=== PATIENT | male | born 1995 | race Caucasian/White ===

== ENCOUNTER 2020-06-11 11:55 | Emergency (ER) | payer MEDICAID, SELFPAY ==
[2020-06-11 12:17] VITALS: BP 130/71; PULSE 74; RESP 16; TEMP 36.9; O2SAT 98; BMI 29.5
--- NOTE | 2020-06-11 12:25 | PC.NURSE ---
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
--- NOTE | 2020-06-11 13:33 | ED_ITS ---
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 Reports he is up-to-date on his tetanus. Denies any other injuries complaints or concerns at this time. Related Data Allergies Allergy/AdvReac Type Severity Reaction Status Date / Time ampicillin [AMPICILLIN] Allergy Unknown SWELLING, Unverified 05/09/20 17:10 anaphylaxis Review of Systems Review of Systems: Constitutional : No Fever, No Chills, Cardiovascular : No Chest Pain, No SOB Respiratory : No Dyspnea Gastrointestinal : No abdominal pain Musculoskeletal : No Joint Swelling Skin : positive skin laceration, No Foreign bodies, No rash, No surrounding erythema Neuro : No Weakness, No Numbness/tingling Psych : No SI/HI/thoughts of self injury Yes all other systems are reviewed and are negative [facility] Past Medical History Attestation statement: The following information was validated with the patient. Medical History Crohn's disease Surgical History History of ankle surgery Hx of tonsillectomy Social History Social History Smoking Status: Never smoker Use of substances other than those prescribed or required for medical reasons: No Advance Directives: No Advance Directives Information Provided: No Physical Exam Vital Signs: Vital Signs: Vital Signs Temp Pulse Resp BP Pulse Ox 06/11/20 12:17 98.5 F 74 16 130/71 98 Body Mass Index 29.5 vital signs have been reviewed as normal and appeared to be correct. Blood pressure normal. Heart rate normal. Respiration rate normal. Temperature normal. Oxygen saturation normal. Appearance: Alert. Oriented X3. No acute distress. Head: Normal external exam. Normocephalic. Atraumatic. No Pardo signs noted. No raccoon eyes noted Eyes: PERRLA. EOMI. Conjunctiva and sclera normal. Eyelids normal. ENT: EAC normal. TM's Normal. Pharynx normal. Uvula midline. Moist mucous membranes. No trismus noted. No drooling noted. No muffled voice noted. Neck: Normal inspection. Neck supple. FROM. No adenopathy. Thyroid Normal. No meningeal signs. No neck mass noted. CVS: Normal heart rate and rhythm. Heart sound normal. No murmurs noted. Pulses normal throughout. Respiratory: No respiratory distress. Painless inspiration. Breath sounds n ormal. No wheezes/rales/rhonchi noted. Chest nontender. No accessory muscle usage noted or decreased air movement noted. Abdomen: Soft and nontender. Bowel sounds normal in all 4 quadrants. No diste ntion noted. No organomegaly noted. No visible injury noted. Back: No CVA tenderness. Full range of motion noted. Skin: Skin warm and dry. Normal skin color. Normal skin turgor. No rashes/lesions noted. Superficial 1 cm lack to left hand dorsal aspect. Bleeding controlled. No foreign bodies noted. Extremities: No lower extremity edema. Extremities exhibit normal range of motion. Extremities nontender. Normal Tendon exam to all fingers. . Neuro: Oriented X 3. No motor deficit. No sensory deficit. Reflexes normal. Procedures Laceration Laceration 1: Site: hand Side (If applicable): left Size (cm): 1 Description: linear Depth: simple, single layer Local Anesthetic: lidocaine 1% Amount of anesthesia used (mL): 3 Pre-repair: wound explored, irrigated extensively and deep structures intact Skin layer closed with: nylon Size (cm): 4-0 Number of sutures: 3 Technique: simple, interrupted Discharge Plan Discharge Clinical Impression: Laceration Patient Disposition: Home, Self-Care Instructions: Laceration (ED) Referrals: Shawnee Ochoa PA [Emergency Midlevel Provider] - 10 days (for suture removal ) Stand Alone Forms: Work/School Release Print Language: Swedish
[2020-06-11] MEDS: Lidocaine HCl 1 % MPF 5 ML VIAL SUBCUT (13:35)
== END 2020-06-11 13:42 | disposition home or self-care (01) ==
PROVIDERS: Emergency Provider Emergency Medicine
DX: S61.412A Laceration without foreign body of left hand, initial encounter (principal); W45.8XXA Other foreign body or object entering through skin, initial encounter; Y93.89 Activity, other specified; Y92.9 Unspecified place or not applicable; Y99.0 Civilian activity done for income or pay
CPT/HCPCS: 12001; 99284

== ENCOUNTER 2020-06-21 14:27 | Outpatient (REF) | payer MEDICAID, SELFPAY ==
[2020-06-21 16:19] LABS: MANUAL DIFF FLAG NO
[2020-06-21 16:24] LABS: Basophils Absolute Auto 0.1 X10*3/uL (0.0-0.2); Basophils Percent Auto 0.9 % (0-2); Eosinophils Absolute Auto 0.2 X10*3/uL (0.0-0.4); Eosinophils Percent Auto 2.2 % (0-4); Hematocrit 34.7 % (42-52); Hemoglobin 10.1 g/dl (14.0-18.0); Imm Gran Abs Auto 0.04 X10*3/uL (0.00-0.03); Imm Gran Pct Auto 0.4 % (0.0-0.4); Lymphocytes Absolute Auto 1.9 X10*3/uL (1.2-4.9); Mean Corpuscular HGB Conc 29.1 g/dl (31.0-36.0); Mean Corpuscular Hemoglobin 20.7 pg (27.0-33.0); Mean Corpuscular Volume 71.1 fL (80-98); Mean Platelet Volume 8.7 fL (9.4-12.4); Monocytes Absolute Auto 0.8 X10*3/uL (0.1-1.2); Monocytes Percent Auto 7.5 % (2-11); Platelet Count 627 X10*3/uL (160-400); Red Blood Count 4.88 X10*6/uL (4.60-5.80); Red Cell Distribution Width 16.5 % (11.0-16.0); White Blood Count 11.1 X10*3/uL (4.8-10.8)
[2020-06-21 16:47] LABS: C Reactive Protein 7.34 mg/dL (< or = 0.50)
[2020-06-21 17:11] LABS: Ferritin 23 ng/mL (20-250)
[2020-06-21 17:21] LABS: Erythrocyte Sedimentation Rate 67 MM/HR (0-15)
[2020-06-21 19:36] LABS: Alanine Aminotransferase 9 U/L (0-40); Albumin Level 3.7 g/dL (3.5-5.0); Alkaline Phosphatase 55 U/L (39-117); Anion Gap 15 (12-20); Aspartate Amino Transferase 12 U/L (5-37); Bilirubin Total 0.4 mg/dL (0.0-1.0); Blood Urea Nitrogen 12 mg/dL (9-16); Calcium 8.3 mg/dL (8.4-10.2); Carbon Dioxide 28 mmol/L (22-29); Chloride 100 mmol/L (96-108); Estimated Glomerular Filt Rate > 60; Glucose Random 87 mg/dL (60-115); Sodium 138 mmol/L (135-145); Total Protein 8.2 g/dL (6.5-8.0)
[2020-06-29 07:47] LABS: Adalimumab Drug Level 1.6 mcg/mL; Anti-Adalimumab Antibody <10 AU (<10)
== END 2020-06-21 14:28 | disposition home or self-care (01) ==
LOC: HO.LAB 14:27
PROVIDERS: PCP Family Medicine; Referring Provider Family Medicine; Visit Provider Internal Medicine Gastroenterology
DX: K50.811 Crohn's disease of both small and large intestine with rectal bleeding (principal); K60.3 Anal fistula; Z79.899 Other long term (current) drug therapy
CPT/HCPCS: 36415; 80053; 80145; 82728; 83520; 85025; 85652; 86140; 99212

== ENCOUNTER 2020-08-09 08:31 | Outpatient (REF) | payer MEDICAID, SELFPAY ==
[2020-08-09 09:06] LABS: MANUAL DIFF FLAG NO
[2020-08-09 09:13] LABS: Basophils Absolute Auto 0.1 X10*3/uL (0.0-0.2); Basophils Percent Auto 0.9 % (0-2); Eosinophils Absolute Auto 0.4 X10*3/uL (0.0-0.4); Eosinophils Percent Auto 3.5 % (0-4); Hemoglobin 11.5 g/dl (14.0-18.0); Imm Gran Abs Auto 0.04 X10*3/uL (0.00-0.03); Imm Gran Pct Auto 0.4 % (0.0-0.4); Lymphocytes Percent Auto 20.1 % (20-40); Mean Corpuscular HGB Conc 30.3 g/dl (31.0-36.0); Mean Corpuscular Hemoglobin 21.7 pg (27.0-33.0); Mean Corpuscular Volume 71.8 fL (80-98); Mean Platelet Volume 8.5 fL (9.4-12.4); Monocytes Absolute Auto 0.9 X10*3/uL (0.1-1.2); Monocytes Percent Auto 9.1 % (2-11); Neutrophils Absolute Auto 6.6 X10*3/uL (2.0-8.3); Platelet Count 573 X10*3/uL (160-400); Red Blood Count 5.29 X10*6/uL (4.60-5.80); Red Cell Distribution Width 19.1 % (11.0-16.0); White Blood Count 9.9 X10*3/uL (4.8-10.8)
[2020-08-09 09:41] LABS: Alanine Aminotransferase 8 U/L (0-40); Albumin Level 3.5 g/dL (3.5-5.0); Alkaline Phosphatase 56 U/L (39-117); Aspartate Amino Transferase 11 U/L (5-37); Bilirubin Direct 0.2 mg/dL (0.0-0.5); Bilirubin Total 0.3 mg/dL (0.0-1.0); C Reactive Protein 5.51 mg/dL (< or = 0.50); Estimated Glomerular Filt Rate > 60; Total Protein 7.9 g/dL (6.5-8.0)
[2020-08-09 10:03] LABS: Ferritin 33 ng/mL (20-250)
== END 2020-08-09 08:32 | disposition home or self-care (01) ==
LOC: HO.LAB 08:31
PROVIDERS: Visit Provider Internal Medicine Gastroenterology
DX: K50.811 Crohn's disease of both small and large intestine with rectal bleeding (principal)
CPT/HCPCS: 36415; 80076; 82565; 82728; 85025; 86140

== ENCOUNTER → 2020-11-07 14:04 | Outpatient (BNVA) | payer MEDICAID, SELFPAY | PROVIDERS: Visit Provider Internal Medicine Gastroenterology ==

== ENCOUNTER → 2021-02-06 13:25 | Outpatient (BNVA) | payer MEDICAID, SELFPAY | PROVIDERS: Visit Provider Internal Medicine Gastroenterology ==

== ENCOUNTER 2021-03-22 14:25 | Emergency (ER) | payer MEDICAID, SELFPAY ==
[2021-03-22 14:27] VITALS: BP 131/84; PULSE 65; RESP 17; O2SAT 99; BMI 28.6
--- NOTE | 2021-03-22 14:49 | ED.EYEPROB ---
HPI - Eye Problem General Chief complaint: Eye Problems Stated complaint: eye problems Time Seen by Provider: 03/22/21 14:49 History of Present Illness HPI Narrative: Patient with history of Crohn's taking adalimubab complains of both eyes being scratchy with a sandpaper feeling, red and mild blurriness of vision but no loss of vision no significant eye pain no pain with light no discharge from eye for the past 2 weeks, he went to an urgent care and was given some drops for allergy but they have not helped Related Data Previous Rx's Medication Instructions Recorded azathioprine 50 mg tablet 50 mg PO DAILY 30 Days #30 tab 06/21/20 cholecalciferol (vitamin D3) 125 125 mcg PO DAILY 30 Days #30 cap 06/21/20 mcg (5,000 unit) capsule ferrous sulfate 325 mg (65 mg 325 mg PO BID 30 Days #60 tab 11/07/20 iron) tablet [id number] 3.5 1 drp OPHTHALMIC (EYE) Q6H #5 ml 03/22/21 mg/mL-10,000 unit/mL-0.1% eye drops (Maxitrol) adalimumab 40 mg/0.4 mL 40 mg SUBCUT QWEEK #4 cap 03/31/21 subcutaneous pen kit (Humira(CF) Pen) Allergies Allergy/AdvReac Type Severity Reaction Status Date / Time ampicillin [AMPICILLIN] Allergy Mild SWELLING, Verified 03/22/21 14:27 anaphylaxis Review of Systems Review of Systems: Positive for bilateral eye scratchiness and redness Negatives are no fever no chills no headache no vision loss no photophobia no discharge from the eye no foreign body sensation no headache no neck pain no sore throat no difficulty breathing no skin rash Yes all other systems are reviewed and are negative PMFSH Past Medical History Source: nursing notes reviewed Medical History (Updated 03/23/21 @ 00:01 by Stephanie Johns) Crohn's disease Hepatitis A immune Nonimmune to hepatitis B virus Surgical History History of ankle surgery (~02/2017) Hx of colonoscopy (10/27/19) Hx of esophagogastroduodenoscopy (10/27/19) Hx of tonsillectomy Social History Social History Household Members: Family Alcohol intake: current Alcohol intake frequency: does not drink Advance Directives: No Advance Directives Information Provided: No Current occupation: Works at [employer] Physical Exam Vital Signs: Vital Signs: Last Vital Signs Pulse 65 03/22/21 14:27 Resp 17 03/22/21 14:27 BP 131/84 03/22/21 14:27 Pulse Ox 99 03/22/21 14:27 Body Mass Index 28.6 General appearance no acute distress eye exam visual acuity is 2025 bilaterally There is conjunctival redness in both eyes, pupils equal round reactive to light extraocular motions are intact, there is no discharge there is no photophobia Fluorescein stain revealed punctate dye uptake Pharynx was clear Neck was supple Respiratory no distress Skin no rashes Course Course Course Narrative: Case was discussed with eye doctor adalgisa 0 believe this is likely keratitis secondary to his Crohn's He advised treatment with Maxitrol be initiated and he said he would see the patient early next week Patient is discharged with clear understanding of the need for follow-up and instructions on how to uses drops Discharge Plan Discharge Clinical Impression: Keratitis Patient Disposition: Home, Self-Care Additional Instructions: Your condition is likely an inflammatory condition from her underlying Crohn's disease called keratitis We spoke with eye doctor Adalgisa by text who advised treatment with steroid drops that also have some antibiotic drop mixed in with them He said call the office Wednesday to be seen Wednesday or Wednesday Make sure when you speak with the medical secretary receptionist that she knows that the physician client services assistant from the emergency room discussed this case with Dr. Diana and he said this patient needs to be seen quickly Return to the ER any worse condition or any concerns or if you are unable to get a close follow-up with Dr. Diana Prescriptions: New neomycin-polymyxin B-dexameth [Maxitrol] 3.5mg/mL-10,000 unit/mL-0.1 % drops,suspension 1 drp ophthalmic (eye) Q6H Qty: 5 RF: 0 No Action Humira(CF) Pen 40 mg/0.4 mL pen injector kit 40 mg subcut QWEEK Qty: 4 RF: 2 azathioprine 50 mg tablet 50 mg PO DAILY 30 Days Qty: 30 RF: 2 cholecalciferol (vitamin D3) 125 mcg (5,000 unit) capsule 125 mcg PO DAILY 30 Days Qty: 30 RF: 3 ferrous sulfate 325 mg (65 mg iron) tablet 325 mg PO BID 30 Days Qty: 60 RF: 1 Referrals: Melo Diana [Physician] - 2 days (Keratitis, discussed with Dr. Diana by phone and patient told to call Wednesday for rapid appointment Wednesday or Wednesday) Stand Alone Forms: Work/School Release Interventions: ED Discharge Assessment Last Done: 03/22/21 16:56 Discharge Date/Time: 03/22/21 17:14
[2021-03-22] MEDS: Fluorescein Sodium STRIP 1 STRIP EYE-BOTH (14:59)
[2021-03-22] MEDS: Tetracaine HCl/PF 0.5% Oph Sol 4 ML DROPS 3 DROP EYE-BOTH (14:59)
--- NOTE | 2021-03-22 16:55 | PC.NURSE ---
YANDY SPENCER SPOKE WITH DR GARCIA AND PT WILL GO HOME WITH STERIOD DROPS AND F/U WITH HIM IN OFFICE.
== END 2021-03-22 17:14 | disposition home or self-care (01) ==
PROVIDERS: Emergency Provider Emergency Medicine
DX: H16.9 Unspecified keratitis (principal); K50.811 Crohn's disease of both small and large intestine with rectal bleeding
CPT/HCPCS: 99283; 99284

== ENCOUNTER 2021-04-14 13:52 | Outpatient (REF) | payer MEDICAID, SELFPAY | END 2021-04-14 13:53 | disposition home or self-care (01) | LOC: HO.LAB 13:52 | PROVIDERS: Visit Provider Internal Medicine | DX: Z20.822 Contact with and (suspected) exposure to COVID-19 (principal) | CPT/HCPCS: C9803; U0003; U0005 ==

== ENCOUNTER → 2021-05-08 13:43 | Outpatient (BNVA) | payer MEDICAID, SELFPAY | PROVIDERS: Visit Provider Internal Medicine Gastroenterology ==

== ENCOUNTER 2021-09-11 11:47 | Outpatient (REF) | payer MEDICAID, SELFPAY ==
[2021-09-11 13:38] LABS: MANUAL DIFF FLAG NO
[2021-09-11 14:12] LABS: Basophils Absolute Auto 0.1 X10*3/uL (0.0-0.2); Basophils Percent Auto 0.9 % (0-2); Eosinophils Absolute Auto 0.2 X10*3/uL (0.0-0.4); Eosinophils Percent Auto 2.2 % (0-4); Hematocrit 39.5 % (42.0-52.0); Hemoglobin 11.9 g/dl (14.0-18.0); Imm Gran Abs Auto 0.02 X10*3/uL (0.00-0.03); Imm Gran Pct Auto 0.3 % (0.0-0.4); Lymphocytes Absolute Auto 1.9 X10*3/uL (1.2-4.9); Lymphocytes Percent Auto 24.8 % (20-40); Mean Corpuscular HGB Conc 30.1 g/dl (31.0-36.0); Mean Corpuscular Hemoglobin 21.7 pg (27.0-33.0); Mean Corpuscular Volume 71.9 fL (80.0-98.0); Mean Platelet Volume 8.7 fL (9.4-12.4); Monocytes Percent Auto 13.1 % (2-11); Neutrophils Absolute Auto 4.5 x10*3/uL (2.0-8.3); Neutrophils Percent Auto 58.7 % (45-73); Platelet Count 578 X10*3/uL (160-400); Red Blood Count 5.49 X10*6/uL (4.60-5.80); Red Cell Distribution Width 18.6 % (11.0-16.0); White Blood Count 7.6 X10*3/uL (4.8-10.8)
[2021-09-11 14:39] LABS: Alanine Aminotransferase 14 U/L (0-40); Albumin Level 3.8 g/dL (3.5-5.0); Alkaline Phosphatase 61 U/L (39-117); Anion Gap 11 (12-20); Aspartate Amino Transferase 14 U/L (5-37); Bilirubin Total 0.3 mg/dL (0.0-1.0); Blood Urea Nitrogen 12 mg/dL (9-16); C Reactive Protein 5.42 mg/dL (< or = 0.50); Calcium 9.5 mg/dL (8.4-10.2); Carbon Dioxide 28 mmol/L (22-29); Chloride 104 mmol/L (96-108); Estimated Glomerular Filt Rate > 60; Glucose Random 97 mg/dL (60-115); Potassium 5.2 mmol/L (3.3-5.1); Sodium 138 mmol/L (135-145); Total Protein 8.6 g/dL (6.5-8.0)
[2021-09-11 14:55] LABS: Erythrocyte Sedimentation Rate 53 MM/HR (0-15)
[2021-09-11 15:01] LABS: Vitamin D 25-OH Total 11.9 ng/mL (>30)
[2021-09-11 15:07] LABS: Vitamin B12 286 pg/mL (200-900)
[2021-09-13 19:17] LABS: TS Negative Control Passed; TS Panel A 0; TS Panel B 0; TS Positive Control Passed; TSpotTB Negative (Negative)
[2021-09-15 07:59] LABS: HBS Num1 0.36 mIU/mL (0-7.99); HBc Num1 0.12 S/CO (0.00-0.79); HBsAGNum1 0.26 S/CO (0.00-0.99); Hepatitis B Core Antibody Nonreactive (Nonreactive); Hepatitis B Surface Antigen Negative (Negative); ~Hepatitis B Surface Antibody NONREACTIVE (Nonreactive)
== END 2021-09-11 11:48 | disposition home or self-care (01) ==
LOC: HO.LAB 11:47
PROVIDERS: Visit Provider Internal Medicine Gastroenterology
DX: K50.811 Crohn's disease of both small and large intestine with rectal bleeding (principal); K60.3 Anal fistula
CPT/HCPCS: 36415; 80053; 82306; 82607; 85025; 85652; 86140; 86481; 86704; 86706; 87340; 99212

== ENCOUNTER → 2022-01-08 12:29 | Outpatient (BNVA) | payer MEDICAID, SELFPAY | PROVIDERS: Visit Provider Internal Medicine Gastroenterology | DX: K50.811 Crohn's disease of both small and large intestine with rectal bleeding (principal); K60.3 Anal fistula | CPT/HCPCS: 99212 ==

== ENCOUNTER 2022-01-14 10:16 | Emergency (ER) | payer MEDICAID, SELFPAY ==
--- NOTE | ~2022-01-14 | XR_ITS ---
EXAMINATION: XR CHEST CLINICAL INFORMATION: Cough COMPARISON: Previous chest x-ray January 2019 TECHNIQUE: 2 views of the chest were obtained. FINDINGS: The cardiac and mediastinal contours are stable. There is question of a small infiltrate at the left lung base. The lungs are otherwise clear. There is no pleural effusion or pneumothorax. Bony structures are unremarkable. XR/XR chest 2V IMPRESSION: Question small infiltrate at the left lung base.
[2022-01-14 11:01] VITALS: BP 131/84; PULSE 77; RESP 18; TEMP 36.6; O2SAT 97; BMI 31.7
[2022-01-14 12:04] LABS: COVID-19 Test Negative (Negative)
[2022-01-14] MEDS: Albuterol Sulfate (0.083%) 2.5 MG/3 ML VIAL.NEB 5 MG INHALE (13:08)
[2022-01-14 13:11] VITALS: PULSE 62; RESP 16; O2SAT 99
[2022-01-14] MEDS: predniSONE 20 MG TABLET 60 MG PO (13:28)
--- NOTE | 2022-01-14 13:55 | ED_ITS ---
HPI - URI/Sore Throat General Chief Complaint: Upper Respiratory Symptoms Stated Complaint: diff breathing Time Seen by Provider: 01/14/22 12:54 Source: patient Mode of arrival: ambulatory Limitations: no limitations History of Present Illness HPI Narrative: 26-year-old male currently on Humira for Crohn's disease presenting to the ED with complaints of chills, fatigue, malaise, nasal congestion/rhinorrhea and in termittent episodes of epistaxis with a productive cough with green-colored sputum for the past week worse today. He denies any fevers, dizziness, headaches, neck pain/stiffness, chest pain, dyspnea exertion, orthopnea, palpitations, paresthesias, nausea/vomiting/diarrhea constipation, abdominal pain, rashes, recent travel or sick contacts or any other symptoms complaints or concerns at this time. MD elicited complaint: cough, rhinorrhea and nasal congestion Onset (ago): week(s) (1) Consistency: constant and progressively worsening Severity: moderate Description of mucous: clear, watery, yellow and green Able to tolerate fluids by mouth: Yes Exacerbating factors: swallowing and deep breaths Relieving factors: nothing Associated symptoms: chills, myalgias, rhinorrhea, nasal congestion, cough, shortness of breath, epistaxis and other (And wheezing) Treatments prior to arrival: none Related Data Previous Rx's Medication Instructions Recorded azathioprine 50 mg tablet 50 mg PO DAILY 30 Days #30 tab 06/21/20 cholecalciferol (vitamin D3) 125 125 mcg PO DAILY 30 Days #30 cap 06/21/20 mcg (5,000 unit) capsule adalimumab 40 mg/0.4 mL 40 mg (0.4 mL) SUBCUT QWEEK #4 cap 11/04/21 subcutaneous pen kit (Humira(CF) Pen) bisacodyl 5 mg tablet,delayed 5 mg PO BEDTIME 1 Days #1 tab 01/08/22 release (Dulcolax (bisacodyl)) polyethylene glycol 3350 17 17 g PO DAILY 1 Days #238 g 01/08/22 gram/dose oral powder (Miralax) albuterol sulfate 90 mcg/actuation 1 inh INHALATION QID PRN #8.5 g 01/14/22 aerosol inhaler codeine 10 mg-guaifenesin 100 mg/5 5 ml PO Q6H PRN #120 ml 01/14/22 mL oral liquid (Guaifenesin AC) doxycycline monohydrate 100 mg 100 mg PO BID 10 Days #20 cap 01/14/22 capsule prednisone 20 mg tablet 40 mg PO DAILY 5 Days #10 tab 01/14/22 Allergies Allergy/AdvReac Type Severity Reaction Status Date / Time ampicillin [AMPICILLIN] Allergy Mild SWELLING, Verified 01/14/22 11:00 anaphylaxis Review of Systems Review of Systems: Constitutional : + chills/fatigue/malaise, No Weight loss, No Fever, No Night Sweats ENT/Mouth : + nasal congestion/rhinorrhea, No Hearing loss, No Ear Pain, No Sinus Pain, No Hoarseness, No sore throat, No Swallowing Difficulty Eyes: No Eye Pain, No Swelling, No Redness, No Foreign Body, No Discharge, No Vision Changes Cardiovascular : No Chest Pain, + SOB, No Dyspnea on Exertion, No Orthopnea, No Edema, No Palpitations Respiratory : + Cough, + Sputum, + Wheezing, No Smoke Exposure, + Dyspnea Gastrointestinal : No Nausea, No Vomiting, No Diarrhea, No Constipation, No abdominal Pain, No Hematochezia, No Melena Genitourinary : no irregular bleeding, No Dysuria, No Urinary Frequency, No Hematuria, No Urinary Incontinence, No Urgency, No Flank Pain, No Urinary Flow Changes, No Hesitancy Musculoskeletal : No joint pain, + Myalgias, No Joint Swelling Skin : No Skin Lesions, No rash Neuro : No Weakness, No Numbness, No Paresthesias, No Loss of Consciousness, No Dizziness, No Headache Psych : No Anxiety/Panic, No Depression, No SI/HI/AH/VH, No Social Issues, Heme/Lymph: No Bruising, No Bleeding,No Lymphadenopathy Endocrine : No Polyuria, No Polydipsia, No Temperature Intolerance Yes all other systems are reviewed and are negative [facility] Past Medical History Attestation statement: The following information was validated with the patient. Medical History Crohn's disease Hepatitis A immune Nonimmune to hepatitis B virus Surgical History History of ankle surgery (~02/2017) Hx of colonoscopy (10/27/19) Hx of esophagogastroduodenoscopy (10/27/19) Hx of tonsillectomy Social History Social History Household Members: Family Alcohol intake: current Alcohol intake frequency: does not drink Advance Directives: No Advance Directives Information Provided: No Current occupation: Works at [employer] Physical Exam Vital Signs: Vital Signs: Last Vital Signs Temp 97.8 F 01/14/22 11:01 Pulse 62 01/14/22 13:11 Resp 16 01/14/22 13:11 BP 131/84 01/14/22 11:01 Pulse Ox 97 01/14/22 11:01 BMI result Body Mass Index 31.7 vital signs have been reviewed as normal and appeared to be correct. Blood pressure normal. Heart rate normal. Respiration rate normal. Temperature normal. Oxygen saturation normal. Appearance: Alert. Oriented X3. No acute distress. Head: Normal external exam. Normocephalic. Atraumatic. Eyes: PERRLA. EOMI. Conjunctiva and sclera normal. Eyelids normal. ENT: EAC normal. TM's Normal. No septal hematoma noted. No hemotympanum noted. Pharynx normal. Uvula midline. Moist mucous membranes. No lesions/ulcerations or masses noted on the tongue. Normal voice. No trismus noted. No drooling noted. No muffled voice noted. Neck: Normal inspection. Neck supple. FROM. No adenopathy. Thyroid Normal. No meningeal signs. No neck mass noted. CVS: Normal heart rate and rhythm. Heart sound normal. Pulses normal throughout. No murmurs/rales/gallops. Respiratory: In mild acute respiratory distress with decreased breath sounds and inspiratory and expiratory wheezing throughout and rhonchi noted. No rales noted. Chest is nontender. No crepitus is noted. No signs of trauma noted. No accessory muscle usage noted. No tracheal tugging noted. Abdomen: Soft and nontender. Bowel sounds normal in all 4 quadrants. No distention noted. No organomegaly noted. No visible injury noted. Back: Full range of motion noted. Skin: Skin warm and dry. Normal skin color. Normal skin turgor. No rashes/lesions/lacerations noted. Extremities: No lower extremity edema. No calf tenderness is noted. Extremities exhibit normal range of motion and nontender. Neuro: Oriented X 3. No motor deficit. No sensory deficit. Reflexes normal. Normal steady gait. No focal neuro deficits noted. CN's II-XII intact bilaterally? Vascular: + radial pulses/+ 2 distal pedal pulses/+2 dorsalis pedis b/l. Normal cap refill. No cyanosis noted to upper extremity nails and lower extremity toes nails. Course Course Course Narrative: Patient negative for COVID. Patient appears to have a small infiltrate at the left lung base. Otherwise no other acute processes. Patient received a breathing treatment and reports he feels better. Will DC home with antibiotics and symptomatic treatment for pneumonia instructions return if any new or worsening symptoms follow up with primary care provider. Patient understands agrees with this plan. MDM - URI/Sore Throat Medical Records Attestation: I reviewed the patient's medical records. Lab Data Attestation: I reviewed the patient's lab results. Labs: Lab Results 01/14/22 Range/Units 11:14 COVID-19 (ISABELLA) Negative (Negative) COVID-19 Clin Com See Note Imaging Data Chest x-ray: Attestation: I personally reviewed and interpreted this imaging study as follows: Radiologist's impression: FINDINGS: The cardiac and mediastinal contours are stable. There is question of a small infiltrate at the left lung base. The lungs are otherwise clear. There is no pleural effusion or pneumothorax. Bony structures are unremarkable. XR/XR chest 2V IMPRESSION: Question small infiltrate at the left lung base. Critical Care Time Critical Care Time Critical Care Time: Yes Total Critical Care Time: 60 Attestation: I personally attest to this time spent taking care of the patient Discharge Plan Discharge Clinical Impression: Pneumonia, Acute bronchospasm Patient Disposition: Home, Self-Care Instructions: Bronchospasm (ED), Pneumonia (ED) Additional Instructions: Avoid the sun or use sunscreen you can get a sun burn from the antibiotics he will be on for 10 days Prescriptions: New prednisone 20 mg tablet 40 mg PO DAILY 5 Days Qty: 10 0RF doxycycline monohydrate 100 mg capsule 100 mg PO BID 10 Days Qty: 20 0RF codeine-guaifenesin [Guaifenesin AC] 10-100 mg/5 mL liquid 5 ml PO Q6H PRN (Reason: cold symptoms) Qty: 120 0RF albuterol sulfate 90 mcg/actuation HFA aerosol inhaler 1 inh inhalation QID PRN (Reason: shortness of breath or wheezing) Qty: 8.5 0RF No Action Humira(CF) Pen 40 mg/0.4 mL pen injector kit 40 mg subcut QWEEK Qty: 4 3RF azathioprine 50 mg tablet 50 mg PO DAILY 30 Days Qty: 30 2RF cholecalciferol (vitamin D3) 125 mcg (5,000 unit) capsule 125 mcg PO DAILY 30 Days Qty: 30 3RF Rx Instructions: Take once daily bisacodyl [Dulcolax (bisacodyl)] 5 mg tablet,delayed release (DR/EC) 5 mg PO BEDTIME 1 Days Qty: 1 0RF Rx Instructions: Take 2 tablets at noon 1 day before colonoscopy polyethylene glycol 3350 [Miralax] 17 gram/dose powder 17 g PO DAILY 1 Days Qty: 238 0RF Rx Instructions: Mix Miralax with 64 oz(8 cups) of Crystal light. Take 2 tablets of Dulcolax qt 12 pm. Wait to have your 1st bowel movement, then begin drinking Miralax. Drink a glass of Miralax every 10-15 minutes until you are finished. You will drink at least another 4 cups of clear liquid of your choice over the next 2 hours. Please drink as many clear liquids as possible You may have clear liquids up to four hours before your procedure Referrals: [facility] [Primary Care Provider] - 2 days Stand Alone Forms: Work/School Release
== END 2022-01-14 14:36 | disposition home or self-care (01) ==
PROVIDERS: Emergency Provider Emergency Medicine Emergency Medical Services
DX: J18.9 Pneumonia, unspecified organism (principal); J98.01 Acute bronchospasm; R05.9 Cough, unspecified; R06.02 Shortness of breath; M79.10 Myalgia, unspecified site; Z20.822 Contact with and (suspected) exposure to COVID-19; Z79.899 Other long term (current) drug therapy
CPT/HCPCS: 71046; 87635; 94640; 94644; 99284

== ENCOUNTER 2022-09-17 13:31 | Outpatient (REF) | payer MEDICAID, SELFPAY ==
[2022-09-17 14:42] LABS: MANUAL DIFF FLAG NO
[2022-09-17 15:06] LABS: Basophils Absolute Auto 0.1 X10*3/uL (0.0-0.2); Eosinophils Absolute Auto 0.3 X10*3/uL (0.0-0.4); Eosinophils Percent Auto 2.9 % (0-4); Hemoglobin 11.8 g/dl (14.0-18.0); Imm Gran Abs Auto 0.03 X10*3/uL (0.00-0.03); Imm Gran Pct Auto 0.3 % (0.0-0.4); Lymphocytes Absolute Auto 2.1 X10*3/uL (1.2-4.9); Lymphocytes Percent Auto 20.8 % (20-40); Mean Corpuscular HGB Conc 30.3 g/dl (31.0-36.0); Mean Corpuscular Hemoglobin 21.6 pg (27.0-33.0); Mean Corpuscular Volume 71.3 fL (80.0-98.0); Mean Platelet Volume 8.4 fL (9.4-12.4); Monocytes Absolute Auto 0.9 X10*3/uL (0.1-1.2); Monocytes Percent Auto 8.5 % (2-11); Neutrophils Absolute Auto 6.7 x10*3/uL (2.0-8.3); Neutrophils Percent Auto 66.5 % (45-73); Platelet Count 556 X10*3/uL (160-400); Red Blood Count 5.47 X10*6/uL (4.60-5.80); Red Cell Distribution Width 15.9 % (11.0-16.0)
[2022-09-17 15:43] LABS: Alanine Aminotransferase 10 U/L (0-40); Albumin Level 3.7 g/dL (3.5-5.0); Alkaline Phosphatase 58 U/L (39-117); Anion Gap 14 (12-20); Aspartate Amino Transferase 11 U/L (5-37); Bilirubin Total 0.3 mg/dL (0.0-1.0); Blood Urea Nitrogen 14 mg/dL (9-16); Calcium 9.4 mg/dL (8.4-10.2); Carbon Dioxide 27 mmol/L (22-29); Chloride 102 mmol/L (96-108); Estimated Glomerular Filt Rate > 60; Glucose Random 90 mg/dL (60-115); Potassium 4.8 mmol/L (3.3-5.1); Sodium 138 mmol/L (135-145); Total Protein 8.4 g/dL (6.5-8.0)
[2022-09-19 15:13] LABS: TS Negative Control Passed; TS Panel A 0; TS Panel B 1; TS Positive Control Passed; TSpotTB Negative (Negative)
[2022-09-25 20:39] LABS: Adalimumab Drug Level 3.9 mcg/mL; Anti-Adalimumab Antibody <10 AU (<10)
== END 2022-09-17 13:32 | disposition home or self-care (01) ==
LOC: HO.LAB 13:31
PROVIDERS: Visit Provider Internal Medicine Gastroenterology
DX: K50.811 Crohn's disease of both small and large intestine with rectal bleeding (principal); K60.3 Anal fistula; Z11.1 Encounter for screening for respiratory tuberculosis; Z79.899 Other long term (current) drug therapy
CPT/HCPCS: 36415; 80053; 80145; 82306; 83520; 85025; 86140; 86481; 99212

== ENCOUNTER 2022-10-27 09:03 | Outpatient (REF) | payer MEDICAID, SELFPAY ==
[2022-11-02 22:43] LABS: Calprotectin, Fecal 3190 mcg/g
== END 2022-10-27 09:04 | disposition home or self-care (01) ==
LOC: HO.LNP 09:03
PROVIDERS: Visit Provider Internal Medicine Gastroenterology
DX: K50.811 Crohn's disease of both small and large intestine with rectal bleeding (principal)
CPT/HCPCS: 83993

== ENCOUNTER 2022-10-29 08:59 | Day surgery (SDC) | payer MEDICAID, SELFPAY ==
[2022-10-26 11:46] VITALS: BMI 32.0
--- NOTE | 2022-10-28 12:55 | P.CONAN_ITS ---
Documented by User: Niecy Torres NP 10/28/22 12:57 HPI - Anesthesia Eval Consult details Narrative: 27yo M for Upper Endoscopy and Colonoscopy FOR[facility] Active Problems Active Problems: All Active Problems (Updated 01/15/22 @ 00:01 by Stephanie Johns) Perianal fistula (Acute) Crohn's disease of both small and large intestine with rectal bleeding (Acute) Past Medical History Medical History Crohn's disease Hepatitis A immune Nonimmune to hepatitis B virus Surgical History Surgical History History of ankle surgery (~02/2017) Hx of colonoscopy (10/27/19) Hx of esophagogastroduodenoscopy (10/27/19) Hx of tonsillectomy Social History Social History Household Members: Family Alcohol intake: current Alcohol intake frequency: does not drink Patient Tobacco Use Status: Never used Tobacco Are you DNR?: No Advance Directives: No Advance Directives Information Provided: Yes Current occupation: Works at [employer] Allergies Allergy/AdvReac Type Severity Reaction Status Date / Time ampicillin [AMPICILLIN] Allergy Mild SWELLING, Verified 09/17/22 13:44 anaphylaxis Exam Exam Date and Time: October 28, 2022 1255 Height,Weight and Vital Signs: Height 5 ft 9 in Weight 98.43 kg Pertinent Lab Results Pertinent Lab Results: Laboratory Tests 09/17/22 09/17/22 14:41 14:41 WBC 10.0 Hgb 11.8 L Hct 39.0 L Plt Count 556 H Sodium 138 Potassium 4.8 Chloride 102 Carbon Dioxide 27 BUN 14 Creatinine 0.83 Documented by User: Noemy Keating MD 10/29/22 10:28 PMFSH Past Medical History Medical History Crohn's disease Hepatitis A immune Nonimmune to hepatitis B virus Surgical History Surgical History History of ankle surgery (~02/2017) Hx of colonoscopy (10/27/19) Hx of esophagogastroduodenoscopy (10/27/19) Hx of tonsillectomy History of Problems with Anesthesia: No Social History Social History Household Members: Family Alcohol intake: current Alcohol intake frequency: does not drink Patient Tobacco Use Status: Never used Tobacco Are you DNR?: No Advance Directives: No Advance Directives Information Provided: Yes Current occupation: Works at [employer] Allergies Allergy/AdvReac Type Severity Reaction Status Date / Time ampicillin [AMPICILLIN] Allergy Mild SWELLING, Verified 09/17/22 13:44 anaphylaxis Exam Airway Mallampati Class: II (Full ovalle) TM Dist: >3cm Neck ROM: Full Loose/Missing/Broken Teeth: No Heart: RRR Lungs: CTA Assessment and Plan Assessment Anesthesia Assessment: Anesthesia Plan Discussed and Chart Reviewed Final Anesthetic Review History of Problems with Anesthesia: No NPO: Yes ASA Class: II Final Preanesthetic Review: Meds/Allgs Chart Reviewed, Consent Obtained/Reviewed and Anes Risks/Benef Reviewed Patient Risk: Low Procedure Risk: Intermediate Anesthetic Plan Anesthetic Plan: MAC: Disposition: Standard PACU
--- NOTE | 2022-10-29 08:59 | MHC.SHP ---
Pre-Procedural Eval Section A Date of Service: 10/29/22 The patient is an INPATIENT: No The History & Physical has been completed within 30 days and I have reviewed it.: No Section B Chief Complaint: screening, Crohn's disease Details of Present Illness: Colon cancer screening Relevant Family History (Specify if Yes): No Relevant Social History: None Present Medications: see Short Stay Collaborative assessment Medical History: Significant History (Crohn's disease Hepatitis A immune Nonimmune to hepatitis B virus) History of Previous Operations: Relevant previous surgery/procedure and date(s) (History of ankle surgery (~02/2017) Hx of colonoscopy (10/27/19) Hx of esophagogastroduodenoscopy (10/27/19) Hx of tonsillectomy) Allergies: Allergies Allergy/AdvReac Type Severity Reaction Status Date / Time ampicillin [AMPICILLIN] Allergy Mild SWELLING, Verified 09/17/22 13:44 anaphylaxis Review of Systems Sugical H&P ROS: Negative: Constitution, Cardiovascular and Respiratory and Yes, Specify: Gastrointestinal (crohn's disease) Exam Surgical H&P Exam: Normal: Heart, Normal: Lungs, Normal: Extremities and Normal: Abdomen Plan Diagnosis/Plan: Unchanged I have reviewed the history and physical and performed a pertinent physical examination on my patient. No changes have occurred unless specified. Time Spent With Patient Time: Total time managing care of this patient today ____ minutes.
[2022-10-29 09:20] VITALS: BMI 32.5
[2022-10-29 09:25] VITALS: BP 128/82; PULSE 85; RESP 18; TEMP 36.4; O2SAT 97
[2022-10-29] MEDS: Lactated Ringers 1,000 ML 100 ML IVCONT (09:30)
--- NOTE | 2022-10-29 09:59 | P.BOP_ITS ---
Brief Operative Note Date of Service: 10/29/22 Pre-op diagnosis: Colon cancer screening, follow-up Crohn's disease Post-op diagnosis: other (Gastritis, duodenal ulcers, Crohn's disease, diverticulosis) Procedure: FLEXIBLE TRANSORAL UPPER GASTROINTESTINAL ENDOSCOPY WITH BIOPSIES AND COLONOSCOPY TILL CECUM WITH BIOPSIES Surgeon: Fuentes Burton MD Anesthesia: MAC Was an Biodiesel Division Manager used for this Procedure?: Yes Biodiesel Division Manager: Phoebe Tapia Estimated blood loss (mL): 2 Pathology: other (A: small bowel biopsy, to rule out chrons disease B: gastric antrum h: pylori To rule out chrons disease C:Cecum D: ilicoccygeal valve ) Condition: stable Disposition: PACU
--- NOTE | 2022-10-29 09:59 | W.PM.OPN ---
Operative Note Operative Note Date of Service: 10/29/22 Narrative: FLEXIBLE TRANSORAL UPPER GASTROINTESTINAL ENDOSCOPY WITH BIOPSIES AND COLONOSCOPY TILL CECUM WITH BIOPSIES UPPER ENDOSCOPY Consent: Indications for the procedure and potential complications of bleeding, perforation, reaction to medications and missed diagnosis were discussed with the patient and informed consent was obtained. Instrument: Olympus GIF H 190 mid size upper endoscope Monitoring: Vital signs and clinical assessment, continuous EKG monitoring, Pulse oximetry, Carbon Dioxide monitoring and blood pressure monitoring were done throughout the procedure. Procedure: The patient was placed in the left lateral decubitis position and pre-procedure medications were administered and a bite block was placed. The endoscope was inserted into the mouth and advanced under direct vision to the third part of duodenum. A careful inspection was made as the upper endoscope was withdrawn including a retroflexed examination of the proximal stomach; Findings and interventions are described below. Findings: Larynx: Normal Esophagus: GE junction at 40 cms. No esophagitis or Ballesteros's. Stomach: Mild gastric erythema. Biopsies were obtained. Grade 2 flap valve on retroflexed examination of the cardia. Duodenum: Normal bulb. Three 4-5 mm chronic appearing healing ulcers in the descending duodenum - biopsied Intervention: Biopsies as noted above COLONOSCOPY PROCEDURE NOTE Consent: Indications for the procedure and potential complications of bleeding, perforation, reaction to medications and missed diagnosis were discussed with the patient and informed consent was obtained. Instrument: Olympus PCF H 190 L variable stiffness pediatric colonoscope Monitoring: Vital signs and clinical assessment, intermittent blood pressure monitoring, continuous EKG monitoring, Pulse oximetry and Carbon Dioxide monitoring were done throughout the procedure. Colon withdrawl time was 20 minutes. Procedure: The patient was placed in the left lateral decubitis position and pre-procedure medications were administered. After a digital rectal examination of the ano-rectum, the video colonoscope was inserted into the rectum and advanced through the colon to the cecum. The colonoscope was slowly withdrawn in a retrograde panoramic fashion and the colon mucosa was carefully examined including a retroflexed view of the rectum. Findings and interventions are described below. Procedure Difficulty: : Without difficulty Findings: Terminal Ileum: Could not be intubated due to narrowing and ulcerations at the opening of ICV Cecum: Patchy erythema with friability Ulcers with narrowing in the area of ICV Ascending Colon: Friable mucosa with multiple ulcers Transverse Colon: Patchy erythema with friable appearing mucosa without ulcers Descending Colon: Patchy erythema with friable appearing mucosa without ulcers Sigmoid Colon: Patchy erythema with friable appearing mucosa without ulcers Moderate diverticulosis Rectum: Patchy erythema with friable appearing mucosa without ulcers Ano-rectum: Ulcerations in the anal canal without obvious fistua Colon preparation: Good after some irrigation Impression and Post Procedure Diagnosis: Endoscopy Findings: STOMACH: Gastritis DUODENUM: Three 4-5 mm chronic appearing healing ulcers in the descending duodenum - biopsied Colonoscopy Findings: No polyps were detected Active right sided colitis due to Crohn's disease (Cecum, ICV and AC). Patchy erythema with friable appearing mucosa without ulcers in the transverse and left colon. Active etienne-anal Crohn's disease Moderate diverticulosis seen in the sigmoid colon Plan: I will contact pt with biopsy results and addition of immunomodulators - Azathioprine or MTX Patient has an appointment on 01/07/23 in the [facility] with Fuentes Burton M.D. Repeat Colonoscopy interval based on path results - in 1- 2 years for FU of Crohn's disease Above findings were reviewed with the patient.
[2022-10-29 11:03] VITALS: BP 103/51; PULSE 77; RESP 24; TEMP 36.3; O2SAT 97
[2022-10-29 11:18] VITALS: BP 116/63; PULSE 91; RESP 18; TEMP 36.9; O2SAT 96
== END 2022-10-29 11:51 | disposition home or self-care (01) ==
PROVIDERS: Visit Provider Internal Medicine Gastroenterology
PROC: (CPT 45380; principal; 2022-10-29 10:10)
DX: Z12.11 Encounter for screening for malignant neoplasm of colon (principal); K50.811 Crohn's disease of both small and large intestine with rectal bleeding; K60.3 Anal fistula; K57.30 Diverticulosis of large intestine without perforation or abscess without bleeding; K52.89 Other specified noninfective gastroenteritis and colitis; K29.50 Unspecified chronic gastritis without bleeding; K26.9 Duodenal ulcer, unspecified as acute or chronic, without hemorrhage or perforation; K75.4 Autoimmune hepatitis; B19.10 Unspecified viral hepatitis B without hepatic coma; Z79.899 Other long term (current) drug therapy; Z88.1 Allergy status to other antibiotic agents
CPT/HCPCS: 45380; 43239; 88305; 88342; J2250

== ENCOUNTER → 2023-01-14 07:59 | Outpatient (BNVA) | payer MEDICAID, SELFPAY | PROVIDERS: Visit Provider Internal Medicine Gastroenterology | DX: K50.811 Crohn's disease of both small and large intestine with rectal bleeding (principal); K60.3 Anal fistula | CPT/HCPCS: 99212 ==

== ENCOUNTER 2023-03-03 14:37 | Emergency (ER) | payer OTHER, SELFPAY ==
--- NOTE | 2023-03-03 14:58 | ED.GENADULT ---
HPI - General Adult General Chief complaint: Skin/Abscess/Foreign Body Stated complaint: Referred by doctor; left buttock abscess Time Seen by Provider: 03/03/23 15:23 Related Data Previous Rx's Medication Instructions Recorded albuterol sulfate 90 mcg/actuation 1 inh inhalation QID PRN shortness 01/14/22 aerosol inhaler of breath or wheezing #8.5 grams codeine 10 mg-guaifenesin 100 mg/5 5 ml PO Q6H PRN cold symptoms #120 01/14/22 mL oral liquid (Guaifenesin AC) mL doxycycline monohydrate 100 mg 100 mg PO BID 10 days #20 caps 01/14/22 capsule mupirocin 2 % topical ointment 1 appl topical TID #22 grams 01/14/22 cholecalciferol (vitamin D3) 250 250 mcg PO 2XW 90 days #26 caps 11/05/22 mcg (10,000 unit) capsule azathioprine 50 mg tablet 50 mg PO DAILY 90 days #90 tabs 11/06/22 adalimumab 40 mg/0.4 mL 40 mg (0.4 mL) subcut QWEEK 4 02/17/23 subcutaneous pen kit (Humira(CF) weeks #1.6 ea Pen) clindamycin HCl 300 mg capsule 300 mg PO Q6H 5 days #20 caps 03/03/23 (Cleocin HCl) ibuprofen 400 mg tablet 400 mg PO Q6H PRN pain #20 tabs 03/03/23 Allergies Allergy/AdvReac Type Severity Reaction Status Date / Time ampicillin [AMPICILLIN] Allergy Mild SWELLING, Verified 03/03/23 14:58 anaphylaxis PMFSH Past Medical History Medical History Crohn's disease Hepatitis A immune Nonimmune to hepatitis B virus Surgical History History of ankle surgery (~02/2017) Hx of colonoscopy (10/27/19) Hx of esophagogastroduodenoscopy (10/27/19) Hx of tonsillectomy Social History Social History Household Members: Family Alcohol intake: current Alcohol intake frequency: does not drink Patient Tobacco Use Status: Never used Tobacco Smoked in Last 30 Days: No Advance Directives: No Advance Directives Information Provided: Yes Current occupation: Works at [employer] Physical Exam ED Vital Signs: Vital Signs - 24 hr 03/03/23 14:59 03/03/23 16:40 Temperature 97.7 F 98.5 F Pulse Rate 95 96 Respiratory Rate 16 17 Blood Pressure 138/93 H 137/88 Pulse Oximetry 96 98 Oxygen Delivery Method Room Air Room Air BMI result Body Mass Index 31.2 Course Course Course Narrative: This is an RME: Additional HPI, ROS, PE not included below will be deferred to primary provider. Patient is a 27-year-old male with history of hepatitis A, Crohn's presenting to the emergency department from PCP office with left buttock abscess for 4 days. Reports history of same. Denies fever/chills. Denies drainage. Pain 06/01. Denies known history of MRSA. Plan: labs Medications Administered Discontinued Medications Generic Name Dose Route Start Last Admin Trade Name Freq PRN Reason Stop Dose Admin Clindamycin HCl 300 mg 03/03/23 16:35 03/03/23 16:54 Clindamycin Hcl 300 Mg Capsule PO 03/03/23 16:36 300 mg ONCE ONE Administration Lidocaine HCl 10 ml 03/03/23 15:45 03/03/23 16:55 Lidocaine Hcl 1 % Mpf 5 Ml Vial SUBCUT 03/03/23 15:46 10 ml ONCE ONE Administration Medical Decision Making Lab Data 03/03/23 15:11 03/03/23 15:11 Labs: Lab Results 03/03/23 03/03/23 Range/Units 15:11 15:11 WBC 11.2 H (4.8-10.8) X10*3/uL RBC 5.35 (4.60-5.80) X10*6/uL Hgb 10.9 L (14.0-18.0) g/dl Hct 37.3 L (42.0-52.0) % MCV 69.7 L (80.0-98.0) fL MCH 20.4 L (27.0-33.0) pg MCHC 29.2 L (31.0-36.0) g/dl RDW 17.2 H (11.0-16.0) % Plt Count 563 H (160-400) X10*3/uL MPV 8.2 L (9.4-12.4) fL Immature Gran % (Auto) 0.4 (0.0-0.4) % Neut % (Auto) 75.6 H (45-73) % Lymph % (Auto) 14.4 L (20-40) % [place] % (Auto) 6.5 (2-11) % Eos % (Auto) 2.4 (0-4) % Baso % (Auto) 0.7 (0-2) % Lymph # (Auto) 1.6 (1.2-4.9) X10*3/uL [place] # (Auto) 0.7 (0.1-1.2) X10*3/uL Eos # (Auto) 0.3 (0.0-0.4) X10*3/uL Baso # (Auto) 0.1 (0.0-0.2) X10*3/uL Abs Immat Gran (auto) 0.05 H (0.00-0.03) X10*3/uL Absolute Neuts (auto) 8.5 H (2.0-8.3) x10*3/uL Absolute Nucleated RBC 0.000 (0.0-0.012) X10*3/uL Nucleated RBC % (auto) 0.0 (0.0-0.2) /100WBC Sodium 137 (135-145) mmol/L Potassium 4.2 (3.3-5.1) mmol/L Chloride 102 (96-108) mmol/L Carbon Dioxide 26 (22-29) mmol/L Anion Gap 13 (12-20) BUN 12 (9-16) mg/dL Creatinine 0.82 (0.5-1.4) mg/dL Estim Creat Clear Calc 155.8 Estimated GFR > 60 Random Glucose 145 H (60-115) mg/dL Calcium 9.9 (8.4-10.2) mg/dL Discharge Plan Discharge Clinical Impression: Abscess of skin or subcutaneous tissue Patient Disposition: Home, Self-Care Instructions: Abscess Incision and Drainage (DC), Incision and Drainage (ED) Prescriptions: New ibuprofen 400 mg tablet 400 mg PO Q6H PRN (Reason: pain) Qty: 20 0RF clindamycin HCl [Cleocin HCl] 300 mg capsule 300 mg PO Q6H 5 Days Qty: 20 0RF No Action cholecalciferol (vitamin D3) 250 mcg (10,000 unit) capsule 250 mcg PO 2XW 90 Days Qty: 26 1RF azathioprine 50 mg tablet 50 mg PO DAILY 90 Days Qty: 90 1RF Humira(CF) Pen 40 mg/0.4 mL pen injector kit 40 mg subcut QWEEK 28 Days Qty: 1.6 3RF doxycycline monohydrate 100 mg capsule 100 mg PO BID 10 Days Qty: 20 0RF codeine-guaifenesin [Guaifenesin AC] 10-100 mg/5 mL liquid 5 ml PO Q6H PRN (Reason: cold symptoms) Qty: 120 0RF albuterol sulfate 90 mcg/actuation HFA aerosol inhaler 1 inh inhalation QID PRN (Reason: shortness of breath or wheezing) Qty: 8.5 0RF mupirocin 2 % ointment 1 appl topical TID Qty: 22 0RF Referrals: Virginia Nuenz MD [Emergency Provider] - 03/05/23 Stand Alone Forms: Work/School Release Discharge Date/Time: 03/03/23 16:56
[2023-03-03 14:59] VITALS: BP 138/93; PULSE 95; RESP 16; TEMP 36.5; O2SAT 96; BMI 31.2
[2023-03-03 15:18] LABS: MANUAL DIFF FLAG NO
[2023-03-03 15:26] LABS: Basophils Absolute Auto 0.1 X10*3/uL (0.0-0.2); Basophils Percent Auto 0.7 % (0-2); Eosinophils Absolute Auto 0.3 X10*3/uL (0.0-0.4); Eosinophils Percent Auto 2.4 % (0-4); Hematocrit 37.3 % (42.0-52.0); Hemoglobin 10.9 g/dl (14.0-18.0); Imm Gran Abs Auto 0.05 X10*3/uL (0.00-0.03); Imm Gran Pct Auto 0.4 % (0.0-0.4); Lymphocytes Absolute Auto 1.6 X10*3/uL (1.2-4.9); Lymphocytes Percent Auto 14.4 % (20-40); Mean Corpuscular HGB Conc 29.2 g/dl (31.0-36.0); Mean Corpuscular Hemoglobin 20.4 pg (27.0-33.0); Mean Corpuscular Volume 69.7 fL (80.0-98.0); Mean Platelet Volume 8.2 fL (9.4-12.4); Monocytes Absolute Auto 0.7 X10*3/uL (0.1-1.2); Monocytes Percent Auto 6.5 % (2-11); Neutrophils Absolute Auto 8.5 x10*3/uL (2.0-8.3); Neutrophils Percent Auto 75.6 % (45-73); Platelet Count 563 X10*3/uL (160-400); Red Blood Count 5.35 X10*6/uL (4.60-5.80); Red Cell Distribution Width 17.2 % (11.0-16.0); White Blood Count 11.2 X10*3/uL (4.8-10.8)
[2023-03-03 15:58] LABS: Anion Gap 13 (12-20); Blood Urea Nitrogen 12 mg/dL (9-16); Calcium 9.9 mg/dL (8.4-10.2); Carbon Dioxide 26 mmol/L (22-29); Chloride 102 mmol/L (96-108); Creatinine Clr Calc Pharmacy 155.8; Estimated Glomerular Filt Rate > 60; Glucose Random 145 mg/dL (60-115); Potassium 4.2 mmol/L (3.3-5.1); Sodium 137 mmol/L (135-145)
--- NOTE | 2023-03-03 16:05 | ED.SKABFB ---
HPI - Skin/Abscess/Foreign Bdy General Chief complaint: Skin/Abscess/Foreign Body Stated complaint: Referred by doctor; left buttock abscess Time Seen by Provider: 03/03/23 15:23 History of Present Illness HPI narrative: Patient is a 27-year-old male presents today with having history of Crohn's disease. Having a large abscess to the right gluteal area. Patient denies any fever chills. No systemic complaints. Patient is from home. Seen at the primary care doctor's office sent in for further evaluation. Related Data Previous Rx's Medication Instructions Recorded albuterol sulfate 90 mcg/actuation 1 inh inhalation QID PRN shortness 01/14/22 aerosol inhaler of breath or wheezing #8.5 grams codeine 10 mg-guaifenesin 100 mg/5 5 ml PO Q6H PRN cold symptoms #120 01/14/22 mL oral liquid (Guaifenesin AC) mL doxycycline monohydrate 100 mg 100 mg PO BID 10 days #20 caps 01/14/22 capsule mupirocin 2 % topical ointment 1 appl topical TID #22 grams 01/14/22 cholecalciferol (vitamin D3) 250 250 mcg PO 2XW 90 days #26 caps 11/05/22 mcg (10,000 unit) capsule azathioprine 50 mg tablet 50 mg PO DAILY 90 days #90 tabs 11/06/22 adalimumab 40 mg/0.4 mL 40 mg (0.4 mL) subcut QWEEK 4 02/17/23 subcutaneous pen kit (Humira(CF) weeks #1.6 ea Pen) clindamycin HCl 300 mg capsule 300 mg PO Q6H 5 days #20 caps 03/03/23 (Cleocin HCl) ibuprofen 400 mg tablet 400 mg PO Q6H PRN pain #20 tabs 03/03/23 Allergies Allergy/AdvReac Type Severity Reaction Status Date / Time ampicillin [AMPICILLIN] Allergy Mild SWELLING, Verified 03/03/23 14:58 anaphylaxis Review of Systems Review of Systems: No fever no chills positive pain to the right gluteal area PMFSH Past Medical History Medical History Crohn's disease Hepatitis A immune Nonimmune to hepatitis B virus Surgical History History of ankle surgery (~02/2017) Hx of colonoscopy (10/27/19) Hx of esophagogastroduodenoscopy (10/27/19) Hx of tonsillectomy Social History Social History Household Members: Family Alcohol intake: current Alcohol intake frequency: does not drink Patient Tobacco Use Status: Never used Tobacco Advance Directives: No Advance Directives Information Provided: Yes Current occupation: Works at [employer] Physical Exam Vital Signs: Vital Signs: Last Vital Signs Temp 97.7 F 03/03/23 14:59 Pulse 95 03/03/23 14:59 Resp 16 03/03/23 14:59 BP 138/93 H 03/03/23 14:59 Pulse Ox 96 03/03/23 14:59 O2 Del Method Room Air 03/03/23 14:59 BMI result Body Mass Index 31.2 Appearance: Alert. Oriented X3. No acute distress. Eyes: Pupils equal, round and reactive to light. ENT: Pharynx normal. Neck: Normal inspection. Neck supple. No lymph nodes noted. No crepitus CVS: Normal heart rate and rhythm. Pulses normal. Normal S1 and S2 Respiratory: No respiratory distress. Breath sounds normal. No Wheezing. No rales Abdomen: Soft and nontender. No rigidity. No distention. good BS x4 Skin: Positive abscess to the right gluteal area approximately 7 cm x 7 cm in size. Fluctuant. Tender to touch. Extremities: No lower extremity edema. Neurovascular intact to all extremities. No Lacerations. No Rash Neuro: Oriented X 3. No motor deficit. No sensory deficit. Moving all extermities. No slurred speech Medical Decision Making Medical Decision Making [facility] Narrative: Patient has a large abscess over the right gluteal area approximately 7 cm x 7 cm in size. I and D was done. Large amount of purulent material was released. Clinically improved. Will start patient on antibiotics as there is some small areas of redness surrounding the abscess. Will have patient follow-up in 2 days for wound check. In stable condition. Differential Diagnosis Abscess, cellulitis Lab Data [facility] Lab Attestation statement: I reviewed the patient's lab results. 03/03/23 15:11 03/03/23 15:11 Labs: Lab Results 03/03/23 03/03/23 Range/Units 15:11 15:11 WBC 11.2 H (4.8-10.8) X10*3/uL RBC 5.35 (4.60-5.80) X10*6/uL Hgb 10.9 L (14.0-18.0) g/dl Hct 37.3 L (42.0-52.0) % MCV 69.7 L (80.0-98.0) fL MCH 20.4 L (27.0-33.0) pg MCHC 29.2 L (31.0-36.0) g/dl RDW 17.2 H (11.0-16.0) % Plt Count 563 H (160-400) X10*3/uL MPV 8.2 L (9.4-12.4) fL Immature Gran % (Auto) 0.4 (0.0-0.4) % Neut % (Auto) 75.6 H (45-73) % Lymph % (Auto) 14.4 L (20-40) % [place] % (Auto) 6.5 (2-11) % Eos % (Auto) 2.4 (0-4) % Baso % (Auto) 0.7 (0-2) % Lymph # (Auto) 1.6 (1.2-4.9) X10*3/uL [place] # (Auto) 0.7 (0.1-1.2) X10*3/uL Eos # (Auto) 0.3 (0.0-0.4) X10*3/uL Baso # (Auto) 0.1 (0.0-0.2) X10*3/uL Abs Immat Gran (auto) 0.05 H (0.00-0.03) X10*3/uL Absolute Neuts (auto) 8.5 H (2.0-8.3) x10*3/uL Absolute Nucleated RBC 0.000 (0.0-0.012) X10*3/uL Nucleated RBC % (auto) 0.0 (0.0-0.2) /100WBC Sodium 137 (135-145) mmol/L Potassium 4.2 (3.3-5.1) mmol/L Chloride 102 (96-108) mmol/L Carbon Dioxide 26 (22-29) mmol/L Anion Gap 13 (12-20) BUN 12 (9-16) mg/dL Creatinine 0.82 (0.5-1.4) mg/dL Estim Creat Clear Calc 155.8 Estimated GFR > 60 Random Glucose 145 H (60-115) mg/dL Calcium 9.9 (8.4-10.2) mg/dL Independent Historian Clinical information obtained from an independent historian. History obtained from or confirmed by: Spouse Chronic Conditions Crohn's Procedures Abscess I/D Site: other (Gluteal area on the right side of) Side (if applicable): right Local Anesthetic: lidocaine 1% Amount of anesthesia used (mL): 6 Technique: needle aspiration Amount of fluid expressed (mL): 10 Sent for culture/gram staining?: Yes Irrigation: Yes Packing used?: iodoform Discharge Plan Discharge Clinical Impression: Abscess of skin or subcutaneous tissue Patient Disposition: Home, Self-Care Instructions: Abscess Incision and Drainage (DC), Incision and Drainage (ED) Prescriptions: New ibuprofen 400 mg tablet 400 mg PO Q6H PRN (Reason: pain) Qty: 20 0RF clindamycin HCl [Cleocin HCl] 300 mg capsule 300 mg PO Q6H 5 Days Qty: 20 0RF No Action cholecalciferol (vitamin D3) 250 mcg (10,000 unit) capsule 250 mcg PO 2XW 90 Days Qty: 26 1RF azathioprine 50 mg tablet 50 mg PO DAILY 90 Days Qty: 90 1RF Humira(CF) Pen 40 mg/0.4 mL pen injector kit 40 mg subcut QWEEK 28 Days Qty: 1.6 3RF doxycycline monohydrate 100 mg capsule 100 mg PO BID 10 Days Qty: 20 0RF codeine-guaifenesin [Guaifenesin AC] 10-100 mg/5 mL liquid 5 ml PO Q6H PRN (Reason: cold symptoms) Qty: 120 0RF albuterol sulfate 90 mcg/actuation HFA aerosol inhaler 1 inh inhalation QID PRN (Reason: shortness of breath or wheezing) Qty: 8.5 0RF mupirocin 2 % ointment 1 appl topical TID Qty: 22 0RF Referrals: Virginia Nunez MD [Emergency Provider] - 03/05/23 Stand Alone Forms: Work/School Release
[2023-03-03 16:40] VITALS: BP 137/88; PULSE 96; RESP 17; TEMP 36.9; O2SAT 98
--- NOTE | 2023-03-03 16:43 | MHC.EDTECH ---
THIS PCT END USER CONSULTANT AND ASSIST DR COLUNGA WITH PATIENT ABSCESS ,WOUND CULTURE COLLECTED AND SENT TO LAB ,VITALS SIGN TAKEN .
[2023-03-03] MEDS: Clindamycin HCL 300 MG CAPSULE PO (16:54)
[2023-03-03] MEDS: Lidocaine HCl 1 % MPF 5 ML VIAL 10 ML SUBCUT (16:55)
--- NOTE | 2023-03-03 16:55 | PC.NURSE ---
ATTENDING md administered lidocaine during draining of abcess- rn came to room following his administration of med to re-eval pt s/p drain- stable, vss, no complaints, dressing cdi.
== END 2023-03-03 16:56 | disposition home or self-care (01) ==
PROVIDERS: Registered Nurse Emergency; Emergency Provider Emergency Medicine Emergency Medical Services; PCP Internal Medicine
DX: L02.31 Cutaneous abscess of buttock (principal); K50.90 Crohn's disease, unspecified, without complications; Z79.899 Other long term (current) drug therapy
CPT/HCPCS: 10060; 36415; 80048; 85025; 87070; 87205; 99284

== ENCOUNTER 2023-03-05 09:09 | Emergency (ER) | payer OTHER, SELFPAY ==
[2023-03-05 09:23] VITALS: BP 120/76; PULSE 91; RESP 14; TEMP 36.1; O2SAT 97; BMI 31.2
--- NOTE | 2023-03-05 11:20 | ED.SKABFB ---
HPI - Skin/Abscess/Foreign Bdy General Chief complaint: Skin/Abscess/Foreign Body Stated complaint: wound check Time Seen by Provider: 03/05/23 09:41 Source: patient and RN notes reviewed Mode of arrival: ambulatory Limitations: no limitations History of Present Illness HPI narrative: This is a 27-year-old male presenting to emergency department for evaluation of abscess that was incised and drained 2 days ago. Patient reports that he has been taking antibiotics as directed, no fevers, chills, increased redness, pain to the area. He states that pain has improved since having the incision and drainage performed. No other complaints or concerns at this time. MD complaint: abscess/boil Onset (ago): day(s) Tetanus up to date: yes Location: buttocks Associated symptoms: denies other symptoms Treatments prior to arrival: bandages Related Data Previous Rx's Medication Instructions Recorded albuterol sulfate 90 mcg/actuation 1 inh inhalation QID PRN shortness 01/14/22 aerosol inhaler of breath or wheezing #8.5 grams codeine 10 mg-guaifenesin 100 mg/5 5 ml PO Q6H PRN cold symptoms #120 01/14/22 mL oral liquid (Guaifenesin AC) mL doxycycline monohydrate 100 mg 100 mg PO BID 10 days #20 caps 01/14/22 capsule mupirocin 2 % topical ointment 1 appl topical TID #22 grams 01/14/22 cholecalciferol (vitamin D3) 250 250 mcg PO 2XW 90 days #26 caps 11/05/22 mcg (10,000 unit) capsule azathioprine 50 mg tablet 50 mg PO DAILY 90 days #90 tabs 11/06/22 adalimumab 40 mg/0.4 mL 40 mg (0.4 mL) subcut QWEEK 4 02/17/23 subcutaneous pen kit (Humira(CF) weeks #1.6 ea Pen) clindamycin HCl 300 mg capsule 300 mg PO Q6H 5 days #20 caps 03/03/23 (Cleocin HCl) ibuprofen 400 mg tablet 400 mg PO Q6H PRN pain #20 tabs 03/03/23 Allergies Allergy/AdvReac Type Severity Reaction Status Date / Time ampicillin [AMPICILLIN] Allergy Mild SWELLING, Verified 03/03/23 14:58 anaphylaxis Review of Systems Review of Systems: Yes all other systems are reviewed and are negative PMFSH Past Medical History Medical History Crohn's disease Hepatitis A immune Nonimmune to hepatitis B virus Surgical History History of ankle surgery (~02/2017) Hx of colonoscopy (10/27/19) Hx of esophagogastroduodenoscopy (10/27/19) Hx of tonsillectomy Social History Social History Household Members: Family Alcohol intake: current Alcohol intake frequency: does not drink Patient Tobacco Use Status: Never used Tobacco Advance Directives: No Advance Directives Information Provided: No Current occupation: Works at [employer] Physical Exam Vital Signs: Vital Signs: Last Vital Signs Temp 97 F 03/05/23 09:23 Pulse 91 03/05/23 09:23 Resp 14 03/05/23 09:23 BP 120/76 03/05/23 09:23 Pulse Ox 97 03/05/23 09:23 O2 Del Method Room Air 03/05/23 09:23 BMI result Body Mass Index 31.2 Const: Other: General: Awake, alert, and oriented X3. No acute distress. HEENT: Normal inspection CVS: Normal heart rate and rhythm. Pulses normal. Respiratory: No respiratory distress Skin: Left buttocks with 3 cm vertical laceration noted, wick in place. No surrounding warmth, induration or fluctuance. No purulence drainage noted. Warm, dry, no rashes noted to exposed skin. Normal skin color. Normal skin turgor. Extremities: Normal to inspection Neuro: Oriented X 3. No motor deficit. No sensory deficit. Medical Decision Making Medical Decision Making MDM Narrative: 27-year-old male presenting to the emergency department for wound check. Patient had incision and drainage 2 days ago. Has been taking antibiotics as prescribed. Patient is afebrile, no fevers at home. Wound is healing, without any induration or fluctuance noted. Patient advised to continue taking antibiotics and follow-up with primary care physician. Patient also given wound care if they wish to follow-up with them. Educated on return precautions. Patient stable for discharge. Differential Diagnosis Differential Diagnoses: The differential diagnosis associated with the presentation includes Wound check, cellulitis, abscess, cyst Discharge Plan Discharge Clinical Impression: Abscess, Wound check, abscess Patient Disposition: Home, Self-Care Instructions: Abscess Follow-up (ED) Additional Instructions: Please continue performing dressing changes once daily. You will start to notice the some drainage from the area, this is normal. Continue taking antibiotic as prescribed. If any new or worsening symptoms occur, including but not limited to fevers, chills, increased redness, swelling, please return for re-evaluation. Please follow-up with your primary care physician regarding this visit. I also attached wound care referral if you have any questions or concerns or like this to be monitored. You have to call to make an appointment. Prescriptions: No Action cholecalciferol (vitamin D3) 250 mcg (10,000 unit) capsule 250 mcg PO 2XW 90 Days Qty: 26 1RF azathioprine 50 mg tablet 50 mg PO DAILY 90 Days Qty: 90 1RF Humira(CF) Pen 40 mg/0.4 mL pen injector kit 40 mg subcut QWEEK 28 Days Qty: 1.6 3RF doxycycline monohydrate 100 mg capsule 100 mg PO BID 10 Days Qty: 20 0RF codeine-guaifenesin [Guaifenesin AC] 10-100 mg/5 mL liquid 5 ml PO Q6H PRN (Reason: cold symptoms) Qty: 120 0RF albuterol sulfate 90 mcg/actuation HFA aerosol inhaler 1 inh inhalation QID PRN (Reason: shortness of breath or wheezing) Qty: 8.5 0RF mupirocin 2 % ointment 1 appl topical TID Qty: 22 0RF ibuprofen 400 mg tablet 400 mg PO Q6H PRN (Reason: pain) Qty: 20 0RF clindamycin HCl [Cleocin HCl] 300 mg capsule 300 mg PO Q6H 5 Days Qty: 20 0RF Referrals: [facility] [place] Wound Care Management [Provider Group]
== END 2023-03-05 12:00 | disposition home or self-care (01) ==
PROVIDERS: Emergency Provider Emergency Medicine
DX: Z48.00 Encounter for change or removal of nonsurgical wound dressing (principal); Z79.899 Other long term (current) drug therapy
CPT/HCPCS: 99282

== ENCOUNTER 2023-04-01 11:39 | Outpatient (REF) | payer OTHER, SELFPAY ==
[2023-04-01 16:12] LABS: MANUAL DIFF FLAG NO
[2023-04-01 16:28] LABS: Basophils Absolute Auto 0.1 X10*3/uL (0.0-0.2); Basophils Percent Auto 0.8 % (0-2); Eosinophils Absolute Auto 0.4 X10*3/uL (0.0-0.4); Eosinophils Percent Auto 4.2 % (0-4); Hematocrit 36.3 % (42.0-52.0); Hemoglobin 10.7 g/dl (14.0-18.0); Imm Gran Abs Auto 0.04 X10*3/uL (0.00-0.03); Imm Gran Pct Auto 0.4 % (0.0-0.4); Lymphocytes Absolute Auto 1.9 X10*3/uL (1.2-4.9); Lymphocytes Percent Auto 18.1 % (20-40); Mean Corpuscular HGB Conc 29.5 g/dl (31.0-36.0); Mean Corpuscular Hemoglobin 20.3 pg (27.0-33.0); Mean Corpuscular Volume 68.8 fL (80.0-98.0); Monocytes Absolute Auto 0.9 X10*3/uL (0.1-1.2); Monocytes Percent Auto 8.3 % (2-11); Neutrophils Absolute Auto 7.1 x10*3/uL (2.0-8.3); Neutrophils Percent Auto 68.2 % (45-73); Platelet Count 611 X10*3/uL (160-400); Red Blood Count 5.28 X10*6/uL (4.60-5.80); Red Cell Distribution Width 17.5 % (11.0-16.0); White Blood Count 10.4 X10*3/uL (4.8-10.8)
[2023-04-01 16:32] LABS: Estimated Average Glucose 100 mg/dL; Hemoglobin A1c % 5.1 %
[2023-04-01 16:41] LABS: Anion Gap 12 (12-20); Blood Urea Nitrogen 13 mg/dL (9-16); Calcium 9.3 mg/dL (8.4-10.2); Carbon Dioxide 28 mmol/L (22-29); Chloride 104 mmol/L (96-108); Estimated Glomerular Filt Rate > 60; Glucose Random 85 mg/dL (60-115); Sodium 140 mmol/L (135-145)
[2023-04-01 16:49] LABS: Alanine Aminotransferase 12 U/L (0-40); Albumin Level 3.4 g/dL (3.5-5.0); Alkaline Phosphatase 57 U/L (39-117); Anion Gap 13 (12-20); Aspartate Amino Transferase 15 U/L (5-37); Bilirubin Total 0.3 mg/dL (0.0-1.0); Blood Urea Nitrogen 13 mg/dL (9-16); C Reactive Protein 7.69 mg/dL (< or = 0.50); Calcium 9.2 mg/dL (8.4-10.2); Carbon Dioxide 25 mmol/L (22-29); Chloride 105 mmol/L (96-108); Estimated Glomerular Filt Rate > 60; Glucose Random 98 mg/dL (60-115); Potassium 4.1 mmol/L (3.3-5.1); Sodium 139 mmol/L (135-145); Total Protein 8.6 g/dL (6.5-8.0)
[2023-04-01 17:07] LABS: Vitamin D 25-OH Total 11.7 ng/mL (>30)
[2023-04-01 17:13] LABS: Folate 4.8 ng/mL (> or = 4.0); Vitamin B12 290 pg/mL (200-900)
[2023-04-02 03:01] LABS: Syphilis Screen Nonreactive (Nonreactive)
[2023-04-02 03:13] LABS: ~HepC Num1 0.24 S/CO (0.00-0.79); ~Hepatitis C Antibody Nonreactive (Nonreactive)
[2023-04-02 03:18] LABS: HIV AB/AG Nonreactive (Nonreactive); HIV Num 1 0.06 S/CO (0.00-0.99)
== END 2023-04-01 11:40 | disposition home or self-care (01) ==
LOC: HO.HHCL 11:39
PROVIDERS: Internal Medicine Gastroenterology; Visit Provider Nurse Practitioner Primary Care
DX: Z11.3 Encounter for screening for infections with a predominantly sexual mode of transmission (principal); Z11.4 Encounter for screening for human immunodeficiency virus [HIV]; K50.811 Crohn's disease of both small and large intestine with rectal bleeding; R73.09 Other abnormal glucose
CPT/HCPCS: 36415; 80048; 80053; 82306; 82607; 82746; 83036; 85025; 86140; 86780; 86803; 87389

== ENCOUNTER 2023-04-29 09:20 | Outpatient (REF) | payer SELFPAY ==
[2023-04-29 09:30] LABS: MANUAL DIFF FLAG NO
[2023-04-29 09:49] LABS: Basophils Absolute Auto 0.1 X10*3/uL (0.0-0.2); Eosinophils Absolute Auto 0.6 X10*3/uL (0.0-0.4); Eosinophils Percent Auto 6.2 % (0-4); Hematocrit 38.1 % (42.0-52.0); Hemoglobin 11.3 g/dl (14.0-18.0); Imm Gran Abs Auto 0.05 X10*3/uL (0.00-0.03); Imm Gran Pct Auto 0.6 % (0.0-0.4); Lymphocytes Percent Auto 21.9 % (20-40); Mean Corpuscular HGB Conc 29.7 g/dl (31.0-36.0); Mean Corpuscular Hemoglobin 20.8 pg (27.0-33.0); Mean Platelet Volume 8.6 fL (9.4-12.4); Monocytes Absolute Auto 0.9 X10*3/uL (0.1-1.2); Monocytes Percent Auto 10.5 % (2-11); Neutrophils Absolute Auto 5.3 x10*3/uL (2.0-8.3); Neutrophils Percent Auto 59.8 % (45-73); Platelet Count 543 X10*3/uL (160-400); Red Blood Count 5.44 X10*6/uL (4.60-5.80); Red Cell Distribution Width 19.2 % (11.0-16.0); White Blood Count 8.9 X10*3/uL (4.8-10.8)
== END 2023-04-29 09:21 | disposition home or self-care (01) ==
LOC: HO.LAB 09:20
PROVIDERS: Visit Provider Internal Medicine Gastroenterology
DX: K50.811 Crohn's disease of both small and large intestine with rectal bleeding (principal)
CPT/HCPCS: 36415; 85025; 86140

== ENCOUNTER 2023-04-30 08:34 | Outpatient (AMB) | payer SELFPAY ==
--- NOTE | 2023-04-30 08:36 | MHC.OFFVIS ---
Intake Vital Signs 04/30/23 08:40 Height 5 ft 9 in Weight 211 lb 10.3 oz BMI 31.3 BP 122/77 Blood Pressure Location Lt brachial Position Sitting Pulse 62 Intake Visit Reasons: 4 month follow up Intake Note: Bertram presents in the office as a 4 month follow up. CC: He states that he is not having any concerns today! Allergies ampicillin [AMPICILLIN] Allergy (Mild, Verified 03/03/23 14:58) SWELLING, anaphylaxis Medication List - Last Reconciled 04/30/23 by Fuentes Burton MD adalimumab (Humira(CF) Pen) 40 mg (0.4 mL) subcut QWEEK 4 weeks albuterol sulfate 90 mcg/actuation 1 inh inhalation QID PRN azathioprine 100 mg (2 x 50 mg) PO DAILY 90 days cholecalciferol (vitamin D3) 250 mcg PO 2XW 90 days clindamycin HCl (Cleocin HCl) 300 mg PO Q6H 5 days doxycycline monohydrate 100 mg PO BID 10 days ibuprofen 400 mg PO Q6H PRN mupirocin 2% 1 appl topical TID HPI 4 month follow up HPI Details GI CLINIC VISIT FOR THIS 27-YEAR-OLD MALE FOLLOWED IN GI FOR 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 Patient was on Remicade for 6 yrs with breakthrough symptoms. Patient was started on Humira on 12/12/19 and dose of Humira was increased to 40 mg every week on 06/21/20 with significant? improvement in his symptoms. ?CHRONIC ILLNESSES:?PERIANAL FISTULA, CROHN'S DISEASE OF BOTH SMALL AND LARGE INTESTINE WITH RECTAL BLEEDING, IMMUNOSUPPRESSED STATUS, HIGH BMI, HEP A IMMUNE, HEP B NON- IMMUNE ? LABS IN [facility]: 12/13/19 normal CBC with H&H of 12.5 and 37.9 with microcytosis and hypochromia, ? ESR 31, CRP 6.94, vitamin-D 14.4 , T spot was negative ? Stool cold calprotectin was elevated at 1796.5 ?IMAGING STUDIES: 12/20/19 MR ENTEROGRAPHY SHOWED: ? IMPRESSION: ? Nonobstructive active inflammation involving distal 15 cm ileum. No proximal obstruction, visible cobblestoning, fistula, or fluid collection. ?ENDOSCOPIC STUDIES: 10/27/2019 EGD AND COLONOSCOPY SHOWED: ? STOMACH: Mild gastric erythema with edematous folds with aphthoid ulcers in the ? antrum. Biopsies were obtained. Grade 1 flap valve on retroflexed examination of the cardia. ? DUODENUM: Duodenitis with multiple 5-6 mm ulcers in the bulb - biopsied. A ? few 4-5 mm ulcers in the 2nd/3rd part of the duodenum - biopsies were obtained ? Colonoscopy Findings: ? Terminal Ileum Distal 7-8 cms was examined and showed cobblestoning with ? chronic appearing serpiginous ulcers with white exudates - biopsies were ? obtained for histology and viral cultures. ? Ulcerated ICV. A few 4-5 mm pseudopolyps in the right colon. ? Moderate diverticulosis seen in the sigmoid colon ? Moderate internal hemorrhoids, perianal skin tags with ulceration in the anal ? canal consistent with active etienne-anal Crohn's disease. ? Plan: ? I will discuss switching from Remicade to Humira with the patient at his FU visit. ? Patient has an appointment on 11/10/19 in the GI Clinic with Fuentes Burton M.D.- ? Repeat Colonoscopy interval based on path results - in 2- 3 years for surveillance biopsies. ? Biopsies showed: ? A. Small bowel, biopsies: Acute duodenitis; negative for dysplasia/malignancy. ? B. Stomach, bulb, biopsies: Marked active gastritis; negative for Helicobacter; ? negative for granulomas; negative for dysplasia/malignancy. ? C. Stomach, antrum, biopsies: Marked active gastritis; negative for Helicobacter; ? negative for granulomas; negative for dysplasia/malignancy. ? D. Terminal ileum, biopsies: Chronic, severe active ileitis; negative for granulomas; negative for dysplasia/malignancy. ? E. Ileocecal valve, biopsies: Severe active, chronic colitis; negative for granulomas; ? negative for dysplasia/malignancy. F. Colon, right, biopsies: Colonic mucosa within normal limits; no active ? inflammation; negative for granulomas; negative for dysplasia/malignancy. ? G. Colon, left, biopsies: Colonic mucosa within normal limits; no active inflammation; ? negative for granulomas; negative for dysplasia/malignancy. ? 8. Rectum, biopsies: Colonic mucosa within normal limits; no active inflammation; ? negative for granulomas; negative for dysplasia/malignancy ?IBD SUMMARY ? Year of diagnosis: 02/2014 - presented with diarrhea, abd pain, bloody stools and fatigue, weight loss from 230 to 170 lbs. ? Extent of disease: Small intestine and ? Colon. EGD and colonoscopy showed duodenitis, gastritis diffuse inflammation of the ileum and colon ? PREVIOUS ENDOSCOPIES: 10/2019 EGD showed gastritis and duodenitis. Same-day colonoscopy showed: Cobblestoning with chronic appearing serpiginous ulcers in TI with white exudates, ulcerated ICV. A few 4-5 mm pseudopolyps in the right colon and moderate sigmoid diverticulosis. Moderate internal hemorrhoids, perianal skin tags with ulceration in the anal canal consistent with active eteinne-anal Crohn's disease. Biopsies were negative for CMV and HSV and showed chronic inflammation. 03/05 EGD AND COLON- diffuse inflammation of the ileum, colon , duodenitis and gastritis ? 01/06 Colonoscopy - mild to moderate inflammation ? 01/07 COLONOSCOPY SHOWED ulceration the terminal ileum, pseudopolyps in the ascending colon, normal mucosa in the whole colon, internal hemorrhoids. Digital rectal examination was abnormal with skin tags and no fistula. Biopsy showed active ileitis, severe with ulceration of the terminal ileum and active mild focal colitis in the right and left colon. No granulomas or dysplasia was seen. ? Last Colonoscopy: ? October 2018 - a little bit of inflammation and treated with steroids and increased dose of Remicade 10 mg/kg every 4 weeks. ? NEXT COLONOSCOPY DUE: in 2-3 yrs ? PAST SURGERY: NONE ? PAST TREATMENTS: Methotrexate, Steroids, and then Remicade, Budesonide 01/2017 - stopped after 1 month. (PT DOES NOT LIKE TAKING PILLS) ? CURRENT TREATMENT: Humira every week and Azathioprine 50 mg once daily. ? ASSOCIATED DIAGNOSIS: Perianal fistula, denies EIM ? IMMUNIZATIONS: Gets a flu shot every year. Pneumococcal 23 vaccination and Pneumovax were completed in September 2017. ? LAST PPD/TB TEST: Aug 2019 NEGATIVE ?TODAY'S VISIT: Lab results reviewed. Denies abdominal pain or diarrhea. Has 3-4 BMs a days and sometimes more. Denies nocturnal diarrhea Feels well with improved energy levels He was having some eye problems and referred to the Eye Doctor He was told Crohn's disease was affecting his eyes (? Uveitis) and prescribed some eye drops Eye is better now. PAST VISIT: Wed and and increase to 4 and 5 on and Wednesday. Takes injection in the morning and if he forgets then 5 pm in the evening Taking Humira every Wednesday. Diarrhea comes and goes _ nothing crazy Can have 4-5 BMs a day - sometimes with blood. Notes abdominal cramping 1-2 days before next Humira injection Taking Vitamin D intermittently. Has a BM 3 times a day - vary between soft and solid. Notes some blood once in a while. Denies?any symptoms of recurrent perianal fistula. Pt has gained 14 lbs over the past 4 months. I am doing really good Microstimira is doing its job. No abdominal pain or bloody stools. Eye problem has resolved. ? Pt states that he has been doing really good! no GI sx. ? Notes resolution of abdominal cramps and rectal bleeding. ? Has 4 normal BMs a day. ? Taking Humira every week and is taking azathioprine. ? Feels Humira is helping. ? Wt is stable at 190- 200 lbs. Saw the ophalmologist - felt he had sand in his eyes - prescribed eye drops with resolution of symptoms [facility] Medical History Nonimmune to hepatitis B virus Hepatitis A immune Crohn's disease Surgical History Hx of colonoscopy (10/27/19) Hx of esophagogastroduodenoscopy (10/27/19) History of ankle surgery (~02/2017) Hx of tonsillectomy Social History Household Members: Family Alcohol intake: current Alcohol intake frequency: does not drink Patient Tobacco Use Status: Never used Tobacco Current occupation: Works at [email or web address] Review of Systems Const All systems reviewed & are unremarkable except as noted in HPI and below Physical Exam Vital Signs: Last Vital Signs Pulse 62 04/30/23 08:40 BP 122/77 04/30/23 08:40 BMI result Body Mass Index 31.3 Const General: healthy appearing and no acute distress Nutritional Appearance: obese Orientation/consciousness: patient oriented x3 Limitations: no limitations HEENT Head: Yes normal to inspection Ears: hearing grossly normal bilaterally Mouth: Normal oral and palatal mucosa present Eyes Sclerae: sclerae normal Pupils: Equal, round and reactive pupils present Neck Neck: Yes normal visual inspection Chest Chest palpation & inspection: normal inspection of the chest Resp Effort & Inspection: normal respiratory effort Auscultation: clear to auscultation bilaterally Cardio Palpation: normal PMI Rate: regular rate Rhythm: regular rhythm Heart sounds: S1 normal heart sound present, S2 normal heart sound present and no murmurs GI Palpation (GI): Soft to palpation, nontender and No hepatosplenomegaly present Auscultation: normal bowel sounds Rectal Exam - Male: Yes deferred Skin General skin exam: no rashes or lesions noted Neuro General: patient oriented x3, gait normal and moves all extremities Cranial nerves: Yes Equal, round and reactive pupils present Psych Appearance: grossly normal Mental Status: mental status grossly normal Assessment & Plan Assessment & Plan (1) Perianal fistula: Code(s): K60.3 - Anal fistula (2) Crohn's disease of both small and large intestine with rectal bleeding: Code(s): K50.811 - Crohn's disease of both small and large intestine with rectal bleeding Plan 27 YM with PERIANAL FISTULA, CROHN'S DISEASE OF BOTH SMALL AND LARGE INTESTINE WITH RECTAL BLEEDING, IMMUNOSUPPRESSED STATUS, HIGH BMI, HEP A IMMUNE, HEP B NON- IMMUNE followed in GI for Crohn's Disease involving small and large intestine.. Pt was being treated with Remicade 10 mg/kg every 4 weeks and noted breakthrough symptoms 3 weeks after Remicade infusion. 11/09 EGD showed gastritis and duodenitis. Same-day colonoscopy showed:? Cobblestoning with chronic appearing serpiginous ulcers in TI with white exudates, ulcerated ICV. A few 4-5 mm pseudopolyps in the right colon and moderate sigmoid diverticulosis. Moderate internal hemorrhoids, perianal skin tags with ulceration in the anal canal consistent with active etienne-anal Crohn's disease. Biopsies were negative for CMV and HSV and showed chronic inflammation. 12/20/19 MR enterography showed nonobstructive active inflammation involving distal 15 cm ileum. No proximal obstruction, visible cobblestoning, fistula, or fluid collection. Patient was started on Humira on 12/12/19 and dose of Humira was increased to 40 mg every week on 06/21/20 with significant? improvement in his symptoms. Patient was advised to continue Humira 40 mg every week and continue azathioprine 50 mg daily. 10/2022 EGD and Colonoscopy were performed and results as noted. Pt started on azathioprine 50 mg daily due to low adalumimab levels. 01/14/23 Pt advised to have labs checked today. If labs are normal, I will increase azathioprine to 100 mg daily. On 04/01/23 @ 17:31 Fuentes Burton Wrote To Fuentes Burton Pt called and lab results reviewed with him - showed persistent anemia and elevated CRP. ADvised to increase Azathioprine to 100 mg daily - new prescription sent 04/30/27 Obtain records from Eye doctors regarding ? Uveitis Follow-up in 4 months with repeat labs. Orders: Orders C Reactive Protein 07/23/23 K50.811 - Crohn's disease of both small and large intestine with rectal bleeding Complete Blood Count Auto Diff 07/23/23 K50.811 - Crohn's disease of both small and large intestine with rectal bleeding Liver Panel 07/23/23 K50.811 - Crohn's disease of both small and large intestine with rectal bleeding Medications: Discontinued doxycycline monohydrate Discontinued Reason: Patient Completed Course 100 mg PO BID 10 days 20 caps 0RF clindamycin HCl (Cleocin HCl) Discontinued Reason: Patient Completed Course 300 mg PO Q6H 5 days 20 caps 0RF Coding Level of Care Code Est Pt Level 4 (79916) Diagnoses Perianal fistula K60.3 Crohn's disease of both small and large intestine with rectal bleeding K50.811 Time Spent (min) 20
[2023-04-30 08:40] VITALS: BP 122/77; PULSE 62; BMI 31.3
== END 2023-04-30 09:39 | disposition home or self-care (01) ==
PROVIDERS: Visit Provider Internal Medicine Gastroenterology
DX: K60.3 Anal fistula (principal); K50.811 Crohn's disease of both small and large intestine with rectal bleeding
CPT/HCPCS: 99214

== ENCOUNTER → 2023-04-30 08:34 | Outpatient (BNVA) | payer SELFPAY | PROVIDERS: Visit Provider Internal Medicine Gastroenterology | DX: K60.3 Anal fistula (principal); K50.811 Crohn's disease of both small and large intestine with rectal bleeding | CPT/HCPCS: 99212 ==

== ENCOUNTER 2023-09-02 10:31 | Outpatient (AMB) | payer SELFPAY ==
--- NOTE | 2023-09-02 10:33 | MHC.OFFVIS ---
Intake Intake Visit Reasons: 4 month follow up Intake Note: Patient follow up for Crohns Patient denies any GI issues. Survey Questionnaire Designer Required: No Accompanied by: Self / Same As Patient Allergies ampicillin [AMPICILLIN] Allergy (Mild, Verified 09/02/23 10:32) SWELLING, anaphylaxis Medication List - Last Reconciled 09/02/23 by Fuentes Burton MD adalimumab (Humira(CF) Pen) 40 mg (0.4 mL) subcut QWEEK 4 weeks albuterol sulfate 90 mcg/actuation 1 inh inhalation QID PRN azathioprine 100 mg (2 x 50 mg) PO DAILY 90 days cholecalciferol (vitamin D3) 250 mcg PO 2XW 90 days ibuprofen 400 mg PO Q6H PRN mupirocin 2% 1 appl topical TID HPI 4 month follow up HPI Details GI CLINIC VISIT FOR THIS 28-YEAR-OLD MALE FOLLOWED IN GI FOR 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 Patient was on Remicade for 6 yrs with breakthrough symptoms. Patient was started on Humira on 12/12/19 and dose of Humira was increased to 40 mg every week on 06/21/20 with significant? improvement in his symptoms. ?CHRONIC ILLNESSES:?PERIANAL FISTULA, CROHN'S DISEASE OF BOTH SMALL AND LARGE INTESTINE WITH RECTAL BLEEDING, IMMUNOSUPPRESSED STATUS, HIGH BMI, HEP A IMMUNE, HEP B NON- IMMUNE ? LABS IN [facility]: 12/13/19 normal CBC with H&H of 12.5 and 37.9 with microcytosis and hypochromia, ? ESR 31, CRP 6.94, vitamin-D 14.4 , T spot was negative ? Stool cold calprotectin was elevated at 1796.5 ?IMAGING STUDIES: 12/20/19 MR ENTEROGRAPHY SHOWED: ? IMPRESSION: ? Nonobstructive active inflammation involving distal 15 cm ileum. No proximal obstruction, visible cobblestoning, fistula, or fluid collection. ?ENDOSCOPIC STUDIES: 10/29/22 EGD AND COLON SHOWED: Endoscopy Findings: STOMACH: Gastritis DUODENUM: Three 4-5 mm chronic appearing healing ulcers in the descending duodenum - biopsied Colonoscopy Findings: No polyps were detected Active right sided colitis due to Crohn's disease (Cecum, ICV and AC). Patchy erythema with friable appearing mucosa without ulcers in the transverse and left colon. Active etienne-anal Crohn's disease Moderate diverticulosis seen in the sigmoid colon Plan: Repeat Colonoscopy interval based on path results - in 1- 2 years for FU of Crohn's disease 10/27/2019 EGD AND COLONOSCOPY SHOWED: ? STOMACH: Mild gastric erythema with edematous folds with aphthoid ulcers in the ? antrum. Biopsies were obtained. Grade 1 flap valve on retroflexed examination of the cardia. ? DUODENUM: Duodenitis with multiple 5-6 mm ulcers in the bulb - biopsied. A ? few 4-5 mm ulcers in the 2nd/3rd part of the duodenum - biopsies were obtained ? Colonoscopy Findings: ? Terminal Ileum Distal 7-8 cms was examined and showed cobblestoning with ? chronic appearing serpiginous ulcers with white exudates - biopsies were ? obtained for histology and viral cultures. ? Ulcerated ICV. A few 4-5 mm pseudopolyps in the right colon. ? Moderate diverticulosis seen in the sigmoid colon ? Moderate internal hemorrhoids, perianal skin tags with ulceration in the anal ? canal consistent with active etienne-anal Crohn's disease. ? Plan: ? I will discuss switching from Remicade to Humira with the patient at his FU visit. ? Patient has an appointment on 11/10/19 in the GI Clinic with Fuentes Burton M.D.- ? Repeat Colonoscopy interval based on path results - in 2- 3 years for surveillance biopsies. ? Biopsies showed: ? A. Small bowel, biopsies: Acute duodenitis; negative for dysplasia/malignancy. ? B. Stomach, bulb, biopsies: Marked active gastritis; negative for Helicobacter; ? negative for granulomas; negative for dysplasia/malignancy. ? C. Stomach, antrum, biopsies: Marked active gastritis; negative for Helicobacter; ? negative for granulomas; negative for dysplasia/malignancy. ? D. Terminal ileum, biopsies: Chronic, severe active ileitis; negative for granulomas; negative for dysplasia/malignancy. ? E. Ileocecal valve, biopsies: Severe active, chronic colitis; negative for granulomas; ? negative for dysplasia/malignancy. F. Colon, right, biopsies: Colonic mucosa within normal limits; no active ? inflammation; negative for granulomas; negative for dysplasia/malignancy. ? G. Colon, left, biopsies: Colonic mucosa within normal limits; no active inflammation; ? negative for granulomas; negative for dysplasia/malignancy. ? 8. Rectum, biopsies: Colonic mucosa within normal limits; no active inflammation; ? negative for granulomas; negative for dysplasia/malignancy ?IBD SUMMARY ? Year of diagnosis: 02/2014 - presented with diarrhea, abd pain, bloody stools and fatigue, weight loss from 230 to 170 lbs. ? Extent of disease: Small intestine and ? Colon. EGD and colonoscopy showed duodenitis, gastritis diffuse inflammation of the ileum and colon ? PREVIOUS ENDOSCOPIES: 10/2019 EGD showed gastritis and duodenitis. Same-day colonoscopy showed: Cobblestoning with chronic appearing serpiginous ulcers in TI with white exudates, ulcerated ICV. A few 4-5 mm pseudopolyps in the right colon and moderate sigmoid diverticulosis. Moderate internal hemorrhoids, perianal skin tags with ulceration in the anal canal consistent with active etienne-anal Crohn's disease. Biopsies were negative for CMV and HSV and showed chronic inflammation. 03/05 EGD AND COLON- diffuse inflammation of the ileum, colon , duodenitis and gastritis? 01/06 Colonoscopy - mild to moderate inflammation ? 01/07 COLONOSCOPY SHOWED ulceration the terminal ileum, pseudopolyps in the ascending colon, normal mucosa in the whole colon, internal hemorrhoids. Digital rectal examination was abnormal with skin tags and no fistula. Biopsy showed active ileitis, severe with ulceration of the terminal ileum and active mild focal colitis in the right and left colon. No granulomas or dysplasia was seen. ? Last Colonoscopy: ? October 2018 - a little bit of inflammation and treated with steroids and increased dose of Remicade 10 mg/kg every 4 weeks. ? NEXT COLONOSCOPY DUE: in 2-3 yrs ? PAST SURGERY: NONE ? PAST TREATMENTS: Methotrexate, Steroids, and then Remicade, Budesonide 01/2017 - stopped after 1 month. (PT DOES NOT LIKE TAKING PILLS) ? CURRENT TREATMENT: Humira every week and Azathioprine 50 mg once daily. ? ASSOCIATED DIAGNOSIS: Perianal fistula, denies EIM ? IMMUNIZATIONS: Gets a flu shot every year. Pneumococcal 23 vaccination and Pneumovax were completed in September 2017. ? LAST PPD/TB TEST: Aug 2019 NEGATIVE ?TODAY'S VISIT: Patient denies any GI issues. Requesting a refill for Vitamin D Denies abdominal pain or diarrhea. Has 3-4 BMs a days and sometimes upto 5. Denies nocturnal diarrhea Feels well with improved energy levels PAST VISIT: He was having some eye problems and referred to the Eye Doctor He was told Crohn's disease was affecting his eyes (? Uveitis) and prescribed some eye drops Eye is better now. Mon and and increase to 4 and 5 on and Wednesday. Takes injection in the morning and if he forgets then 5 pm in the evening Taking Humira every Wednesday. Diarrhea comes and goes _ nothing crazy Can have 4-5 BMs a day - sometimes with blood. Notes abdominal cramping 1-2 days before next Humira injection Taking Vitamin D intermittently. Has a BM 3 times a day - vary between soft and solid. Notes some blood once in a while. Denies?any symptoms of recurrent perianal fistula. Pt has gained 14 lbs over the past 4 months. I am doing really good Humira is doing its job. No abdominal pain or bloody stools. Eye problem has resolved. ? Pt states that he has been doing really good! no GI sx. ? Notes resolution of abdominal cramps and rectal bleeding. ? Has 4 normal BMs a day. ? Taking Humira every week and is taking azathioprine. ? Feels Humira is helping. ? Wt is stable at 190- 200 lbs. Saw the ophalmologist - felt he had sand in his eyes - prescribed eye drops with resolution of symptoms [facility] Medical History Nonimmune to hepatitis B virus Hepatitis A immune Crohn's disease Surgical History Hx of colonoscopy (10/27/19) Hx of esophagogastroduodenoscopy (10/27/19) History of ankle surgery (~02/2017) Hx of tonsillectomy Social History Household Members: Family Alcohol intake: current Alcohol intake frequency: does not drink Patient Tobacco Use Status: Never used Tobacco Current occupation: Works at [employer] Review of Systems Const All systems reviewed & are unremarkable except as noted in HPI and below Assessment & Plan Assessment & Plan (1) Crohn's disease of both small and large intestine with rectal bleeding: Code(s): K50.811 - Crohn's disease of both small and large intestine with rectal bleeding (2) Perianal fistula: Code(s): K60.3 - Anal fistula Plan 28 YM with PERIANAL FISTULA, CROHN'S DISEASE OF BOTH SMALL AND LARGE INTESTINE WITH RECTAL BLEEDING, IMMUNOSUPPRESSED STATUS, HIGH BMI, HEP A IMMUNE, HEP B NON- IMMUNE followed in GI for Crohn's Disease involving small and large intestine.. Pt was being treated with Remicade 10 mg/kg every 4 weeks and noted breakthrough symptoms 3 weeks after Remicade infusion. 11/09 EGD showed gastritis and duodenitis. Same-day colonoscopy showed:? Cobblestoning with chronic appearing serpiginous ulcers in TI with white exudates, ulcerated ICV. A few 4-5 mm pseudopolyps in the right colon and moderate sigmoid diverticulosis. Moderate internal hemorrhoids, perianal skin tags with ulceration in the anal canal consistent with active etienne-anal Crohn's disease. Biopsies were negative for CMV and HSV and showed chronic inflammation. 12/20/19 MR enterography showed nonobstructive active inflammation involving distal 15 cm ileum. No proximal obstruction, visible cobblestoning, fistula, or fluid collection. Patient was started on Humira on 12/12/19 and dose of Humira was increased to 40 mg every week on 06/21/20 with significant? improvement in his symptoms. Patient was advised to continue Humira 40 mg every week and continue azathioprine 50 mg daily. 10/2022 EGD and Colonoscopy were performed and results as noted. Pt started on azathioprine 50 mg daily due to low adalumimab levels. 01/14/23 Pt advised to have labs checked today. If labs are normal, I will increase azathioprine to 100 mg daily. On 04/01/23 @ 17:31 Fuentes Burton Wrote To Fuentes Burton Pt called and lab results reviewed with him - showed persistent anemia and elevated CRP. Advised to increase Azathioprine to 100 mg daily - new prescription sent 04/30/27 Obtain records from Eye doctors regarding ? Uveitis Follow-up in 4 months with repeat labs. Orders: Orders C Reactive Protein Today K50.811 - Crohn's disease of both small and large intestine with rectal bleeding Comprehensive Met. Panel Today K50.811 - Crohn's disease of both small and large intestine with rectal bleeding Hepatitis A IgG Today K50.811 - Crohn's disease of both small and large intestine with rectal bleeding Vitamin D 25-OH Total Today K50.811 - Crohn's disease of both small and large intestine with rectal bleeding Complete Blood Count Auto Diff Today K50.811 - Crohn's disease of both small and large intestine with rectal bleeding T Spot TB Today K50.811 - Crohn's disease of both small and large intestine with rectal bleeding Medications: Refilled cholecalciferol (vitamin D3) 250 mcg PO 2XW 90 days 26 caps 1RF E55.9 - Vitamin D deficiency, unspecified azathioprine 100 mg (2 x 50 mg) PO DAILY 90 days 180 tabs 1RF K50.811 - Crohn's disease of both small and large intestine with rectal bleeding adalimumab (Humira(CF) Pen) 40 mg (0.4 mL) subcut QWEEK 4 weeks 1.6 ea 6RF K50.811 - Crohn's disease of both small and large intestine with rectal bleeding Telehealth Telehealth Location of provider rendering services: practice address Location of patient: address on file Patient Identification confirmed using: Name, : Yes Telehealth method: voice only Patient verbally consented to treatment: Yes Patient verbally consented to billing insurance company: Yes Patient informed of any privacy concerns related to visit: Yes Minutes spent on Phone/Video with Pt.: 22 Coding Level of Care Code Tele Est Pt Level 4 (03689) Diagnoses Crohn's disease of both small and large intestine with rectal bleeding K50.811 Perianal fistula K60.3
== END 2023-09-02 11:30 | disposition home or self-care (01) ==
LOC: HO.HGI 10:32
PROVIDERS: Visit Provider Internal Medicine Gastroenterology
DX: K50.811 Crohn's disease of both small and large intestine with rectal bleeding (principal); K60.3 Anal fistula
CPT/HCPCS: 99214

== ENCOUNTER → 2023-09-02 10:31 | Outpatient (BNVA) | payer OTHER, SELFPAY | PROVIDERS: Visit Provider Internal Medicine Gastroenterology ==

== ENCOUNTER 2023-12-30 08:39 | Outpatient (AMB) | payer OTHER, SELFPAY ==
--- NOTE | 2023-12-30 08:45 | MHC.OFFVIS ---
Vital Signs 12/30/23 08:47 Height 5 ft 9 in Weight 200 lb BMI 29.5 BP 123/71 Blood Pressure Location Lt brachial Position Sitting Pulse 74 Intake Visit Reasons: 4 month follow up Intake Note: Patient follow up for Crohns Patient cc: daily abdominal pain on and off. Hcc Coders Required: No Accompanied by: Self / Same As Patient Allergies ampicillin [AMPICILLIN] Allergy (Mild, Verified 04/07/24 09:56) SWELLING, anaphylaxis Medication List - Last Reconciled 12/30/23 by Fuentes Burton MD adalimumab (Humira(CF) Pen) 40 mg (0.4 mL) subcut QWEEK 8 weeks albuterol sulfate 90 mcg/actuation 1 inh inhalation QID PRN azathioprine 100 mg (2 x 50 mg) PO DAILY 90 days cholecalciferol (vitamin D3) 250 mcg PO 2XW 90 days ibuprofen 400 mg PO Q6H PRN mupirocin 2% 1 appl topical TID HPI HPI 4 month follow up: Details: GI CLINIC VISIT FOR THIS 28-YEAR-OLD MALE FOLLOWED IN GI FOR 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 Patient was on Remicade for 6 yrs with breakthrough symptoms. Patient was started on Humira on 12/12/19 and dose of Humira was increased to 40 mg every week on 06/21/20 with significant? improvement in his symptoms. ?CHRONIC ILLNESSES:?PERIANAL FISTULA, CROHN'S DISEASE OF BOTH SMALL AND LARGE INTESTINE WITH RECTAL BLEEDING, IMMUNOSUPPRESSED STATUS, HIGH BMI, HEP A IMMUNE, HEP B NON- IMMUNE ? LABS IN [facility]: 12/13/19 normal CBC with H&H of 12.5 and 37.9 with microcytosis and hypochromia, ? ESR 31, CRP 6.94, vitamin-D 14.4 , T spot was negative ? Stool cold calprotectin was elevated at 1796.5 ?IMAGING STUDIES: 12/20/19 MR ENTEROGRAPHY SHOWED: ? IMPRESSION: ? Nonobstructive active inflammation involving distal 15 cm ileum. No proximal obstruction, visible cobblestoning, fistula, or fluid collection. ?ENDOSCOPIC STUDIES: 10/29/22 EGD AND COLON SHOWED: Endoscopy Findings: STOMACH: Gastritis DUODENUM: Three 4-5 mm chronic appearing healing ulcers in the descending duodenum - biopsied Colonoscopy Findings: No polyps were detected Active right sided colitis due to Crohn's disease (Cecum, ICV and AC). Patchy erythema with friable appearing mucosa without ulcers in the transverse and left colon. Active etienne-anal Crohn's disease Moderate diverticulosis seen in the sigmoid colon Plan: Repeat Colonoscopy interval based on path results - in 1- 2 years for FU of Crohn's disease 10/27/2019 EGD AND COLONOSCOPY SHOWED:? STOMACH: Mild gastric erythema with edematous folds with aphthoid ulcers in the ? antrum. Biopsies were obtained. Grade 1 flap valve on retroflexed examination of the cardia. ? DUODENUM: Duodenitis with multiple 5-6 mm ulcers in the bulb - biopsied. A ? few 4-5 mm ulcers in the 2nd/3rd part of the duodenum - biopsies were obtained ? Colonoscopy Findings: ? Terminal Ileum Distal 7-8 cms was examined and showed cobblestoning with ? chronic appearing serpiginous ulcers with white exudates - biopsies were ? obtained for histology and viral cultures. ? Ulcerated ICV. A few 4-5 mm pseudopolyps in the right colon. ? Moderate diverticulosis seen in the sigmoid colon ? Moderate internal hemorrhoids, perianal skin tags with ulceration in the anal ? canal consistent with active etienne-anal Crohn's disease. ? Plan: ? I will discuss switching from Remicade to Humira with the patient at his FU visit. ? Patient has an appointment on 11/10/19 in the GI Clinic with Fuentes Burton M.D.- ? Repeat Colonoscopy interval based on path results - in 2- 3 years for surveillance biopsies. ? Biopsies showed: ? A. Small bowel, biopsies: Acute duodenitis; negative for dysplasia/malignancy. ? B. Stomach, bulb, biopsies: Marked active gastritis; negative for Helicobacter; ? negative for granulomas; negative for dysplasia/malignancy. ? C. Stomach, antrum, biopsies: Marked active gastritis; negative for Helicobacter; ? negative for granulomas; negative for dysplasia/malignancy. ? D. Terminal ileum, biopsies: Chronic, severe active ileitis; negative for granulomas; negative for dysplasia/malignancy. ? E. Ileocecal valve, biopsies: Severe active, chronic colitis; negative for granulomas; ? negative for dysplasia/malignancy. F. Colon, right, biopsies: Colonic mucosa within normal limits; no active ? inflammation; negative for granulomas; negative for dysplasia/malignancy. ? G. Colon, left, biopsies: Colonic mucosa within normal limits; no active inflammation; ? negative for granulomas; negative for dysplasia/malignancy. ? 8. Rectum, biopsies: Colonic mucosa within normal limits; no active inflammation; ? negative for granulomas; negative for dysplasia/malignancy ?IBD SUMMARY ? Year of diagnosis: 02/2014 - presented with diarrhea, abd pain, bloody stools and fatigue, weight loss from 230 to 170 lbs. ? Extent of disease: Small intestine and ? Colon. EGD and colonoscopy showed duodenitis, gastritis diffuse inflammation of the ileum and colon ? PREVIOUS ENDOSCOPIES: 10/2019 EGD showed gastritis and duodenitis. Same-day colonoscopy showed: Cobblestoning with chronic appearing serpiginous ulcers in TI with white exudates, ulcerated ICV. A few 4-5 mm pseudopolyps in the right colon and moderate sigmoid diverticulosis. Moderate internal hemorrhoids, perianal skin tags with ulceration in the anal canal consistent with active etienne-anal Crohn's disease. Biopsies were negative for CMV and HSV and showed chronic inflammation. 03/05 EGD AND COLON- diffuse inflammation of the ileum, colon , duodenitis and gastritis? 01/06 Colonoscopy - mild to moderate inflammation? 01/07 COLONOSCOPY SHOWED ulceration the terminal ileum, pseudopolyps in the ascending colon, normal mucosa in the whole colon, internal hemorrhoids. Digital rectal examination was abnormal with skin tags and no fistula. Biopsy showed active ileitis, severe with ulceration of the terminal ileum and active mild focal colitis in the right and left colon. No granulomas or dysplasia was seen. ? Last Colonoscopy: ? October 2018 - a little bit of inflammation and treated with steroids and increased dose of Remicade 10 mg/kg every 4 weeks. ? NEXT COLONOSCOPY DUE: in 2-3 yrs ? PAST SURGERY: NONE ? PAST TREATMENTS: Methotrexate, Steroids, and then Remicade, Budesonide 01/2017 - stopped after 1 month. (PT DOES NOT LIKE TAKING PILLS) ? CURRENT TREATMENT: Humira every week and Azathioprine 50 mg once daily. ? ASSOCIATED DIAGNOSIS: Perianal fistula, denies EIM ? IMMUNIZATIONS: Gets a flu shot every year. Pneumococcal 23 vaccination and Pneumovax were completed in September 2017. ? LAST PPD/TB TEST: Aug 2019 NEGATIVE ?TODAY'S VISIT: Patient cc: daily abdominal pain on and off. Complains of intermittent LUQ abd pain - comes and goes Can feel like a sharp pain and resolves after 1-2 minutes. Denies association with eating. Can happen randomly while he is watching TV. Can have 5 or more BMs a day Notes blood in the stool when he gets abdominal cramps Denies nocturnal diarrhea Had eye symptoms 3 weeks ago which resolved after he used steroid drops PAST VISIT: Requesting a refill for Vitamin D Denies abdominal pain or diarrhea. Has 3-4 BMs a days and sometimes upto 5. Feels well with improved energy levels He was having some eye problems and referred to the Eye Doctor He was told Crohn's disease was affecting his eyes (? Uveitis) and prescribed some eye drops Eye is better now. Mon and and increase to 4 and 5 on and Wednesday. Takes injection in the morning and if he forgets then 5 pm in the evening Taking Humira every Wednesday. Diarrhea comes and goes _ nothing crazy Can have 4-5 BMs a day - sometimes with blood. Notes abdominal cramping 1-2 days before next Humira injection Taking Vitamin D intermittently. Has a BM 3 times a day - vary between soft and solid. Notes some blood once in a while. Denies?any symptoms of recurrent perianal fistula. Pt has gained 14 lbs over the past 4 months. I am doing really good Humira is doing its job. No abdominal pain or bloody stools. Eye problem has resolved. ? Pt states that he has been doing really good! no GI sx. ? Notes resolution of abdominal cramps and rectal bleeding. ? Has 4 normal BMs a day. ? Taking Humira every week and is taking azathioprine. ? Feels Humira is helping. ? Wt is stable at 190- 200 lbs. Saw the ophalmologist - felt he had sand in his eyes - prescribed eye drops with resolution of symptoms [facility] Medical History Nonimmune to hepatitis B virus Hepatitis A immune Crohn's disease Surgical History Hx of colonoscopy (10/27/19) Hx of esophagogastroduodenoscopy (10/27/19) History of ankle surgery (~02/2017) Hx of tonsillectomy Social History Household Members: Family Alcohol intake: current Alcohol intake frequency: does not drink Patient Tobacco Use Status: Never used Tobacco Substance Use Type: IV Drugs Current occupation: Works at [employer] Review of Systems Const All systems reviewed & are unremarkable except as noted in HPI and below Physical Exam Vital Signs: Last Vital Signs Pulse 74 12/30/23 08:47 BP 123/71 12/30/23 08:47 BMI result Body Mass Index 29.5 Const General: healthy appearing and no acute distress Nutritional Appearance: obese Orientation/consciousness: patient oriented x3 Limitations: no limitations HEENT Head: Yes normal to inspection Ears: hearing grossly normal bilaterally Mouth: Normal oral and palatal mucosa present Eyes Sclerae: sclerae normal Pupils: Equal, round and reactive pupils present Neck Neck: Yes normal visual inspection Chest Chest palpation & inspection: normal inspection of the chest Resp Effort & Inspection: normal respiratory effort Auscultation: clear to auscultation bilaterally Cardio Palpation: normal PMI Rate: regular rate Rhythm: regular rhythm Heart sounds: S1 normal heart sound present, S2 normal heart sound present and no murmurs GI Palpation (GI): Soft to palpation, nontender and No hepatosplenomegaly present Auscultation: normal bowel sounds Rectal Exam - Male: Yes deferred Skin General skin exam: no rashes or lesions noted Neuro General: patient oriented x3, gait normal and moves all extremities Cranial nerves: Yes Equal, round and reactive pupils present Psych Appearance: grossly normal Mental Status: mental status grossly normal Assessment & Plan Assessment & Plan (1) Crohn's disease of both small and large intestine with rectal bleeding: Code(s): K50.811 - Crohn's disease of both small and large intestine with rectal bleeding Category: Medical Plan 28 YM with PERIANAL FISTULA, CROHN'S DISEASE OF BOTH SMALL AND LARGE INTESTINE WITH RECTAL BLEEDING, IMMUNOSUPPRESSED STATUS, HIGH BMI, HEP A IMMUNE, HEP B NON- IMMUNE followed in GI for Crohn's Disease involving small and large intestine.. Pt was being treated with Remicade 10 mg/kg every 4 weeks and noted breakthrough symptoms 3 weeks after Remicade infusion. 11/09 EGD showed gastritis and duodenitis. Same-day colonoscopy showed:? Cobblestoning with chronic appearing serpiginous ulcers in TI with white exudates, ulcerated ICV. A few 4-5 mm pseudopolyps in the right colon and moderate sigmoid diverticulosis. Moderate internal hemorrhoids, perianal skin tags with ulceration in the anal canal consistent with active etienne-anal Crohn's disease. Biopsies were negative for CMV and HSV and showed chronic inflammation. 12/20/19 MR enterography showed nonobstructive active inflammation involving distal 15 cm ileum. No proximal obstruction, visible cobblestoning, fistula, or fluid collection. Patient was started on Humira on 12/12/19 and dose of Humira was increased to 40 mg every week on 06/21/20 with significant? improvement in his symptoms. Patient was advised to continue Humira 40 mg every week and continue azathioprine 50 mg daily. 10/2022 EGD and Colonoscopy were performed and results as noted. Pt started on azathioprine 50 mg daily due to low adalumimab levels. 01/14/23 Pt advised to have labs checked today. If labs are normal, I will increase azathioprine to 100 mg daily. On 04/01/23 @ 17:31 Fuentes Burton Wrote To Fuentes Burton Pt called and lab results reviewed with him - showed persistent anemia and elevated CRP. Advised to increase Azathioprine to 100 mg daily - new prescription sent 04/30/23 Obtain records from Eye doctors regarding ? Uveitis 12/30/23 Complains of intermittent LUQ abd pain - comes and goes Can have 5 or more BMs a day Notes blood in the stool when he gets abdominal cramps 01/10/24 Pt started on MTX 15mg Subcut every week Follow-up in 3 months with repeat labs Orders: Orders C Reactive Protein 12/30/23 K50.811 - Crohn's disease of both small and large intestine with rectal bleeding Complete Blood Count Auto Diff 12/30/23 K50.811 - Crohn's disease of both small and large intestine with rectal bleeding Comprehensive Met. Panel 12/30/23 K50.811 - Crohn's disease of both small and large intestine with rectal bleeding Vitamin B12 and Folate 12/30/23 K50.811 - Crohn's disease of both small and large intestine with rectal bleeding Vitamin D 25-OH Total 12/30/23 K50.811 - Crohn's disease of both small and large intestine with rectal bleeding Adalimumab+Ab 12/30/23 K50.811 - Crohn's disease of both small and large intestine with rectal bleeding T Spot TB 12/30/23 K50.811 - Crohn's disease of both small and large intestine with rectal bleeding Coding Level of Care Code Est Pt Level 4 (12303) Diagnoses Crohn's disease of both small and large intestine with rectal bleeding K50.811 Time Spent (min) 22
[2023-12-30 08:47] VITALS: BP 123/71; PULSE 74; BMI 29.5
== END 2023-12-30 09:31 | disposition home or self-care (01) ==
PROVIDERS: Visit Provider Internal Medicine Gastroenterology
DX: K50.811 Crohn's disease of both small and large intestine with rectal bleeding (principal)
CPT/HCPCS: 99499

== ENCOUNTER 2023-12-30 08:39 | Outpatient (REF) | payer OTHER, SELFPAY ==
[2023-12-30 10:03] LABS: MANUAL DIFF FLAG NO
[2023-12-30 10:17] LABS: Basophils Absolute Auto 0.1 X10*3/uL (0.0-0.2); Basophils Percent Auto 1.3 % (0-2); Eosinophils Absolute Auto 0.4 X10*3/uL (0.0-0.4); Eosinophils Percent Auto 4.1 % (0-4); Hematocrit 35.2 % (42.0-52.0); Hemoglobin 10.4 g/dl (14.0-18.0); Imm Gran Abs Auto 0.03 X10*3/uL (0.00-0.03); Imm Gran Pct Auto 0.3 % (0.0-0.4); Lymphocytes Absolute Auto 1.4 X10*3/uL (1.2-4.9); Lymphocytes Percent Auto 15.5 % (20-40); Mean Corpuscular HGB Conc 29.5 g/dl (31.0-36.0); Mean Corpuscular Hemoglobin 19.8 pg (27.0-33.0); Mean Corpuscular Volume 67.2 fL (80.0-98.0); Mean Platelet Volume 8.2 fL (9.4-12.4); Monocytes Percent Auto 11.1 % (2-11); Neutrophils Absolute Auto 6.2 x10*3/uL (2.0-8.3); Neutrophils Percent Auto 67.7 % (45-73); Platelet Count 596 X10*3/uL (160-400); Red Blood Count 5.24 X10*6/uL (4.60-5.80); Red Cell Distribution Width 17.7 % (11.0-16.0); White Blood Count 9.2 X10*3/uL (4.8-10.8)
[2023-12-30 11:06] LABS: Alanine Aminotransferase 10 U/L (0-40); Albumin Level 3.4 g/dL (3.5-5.0); Alkaline Phosphatase 51 U/L (39-117); Anion Gap 14 (12-20); Aspartate Amino Transferase 12 U/L (5-37); Bilirubin Direct < 0.2 mg/dL (0.0-0.5); Bilirubin Total 0.2 mg/dL (0.0-1.0); Blood Urea Nitrogen 13 mg/dL (9-16); C Reactive Protein 8.62 mg/dL (< or = 0.50); Carbon Dioxide 27 mmol/L (22-29); Chloride 102 mmol/L (96-108); Estimated Glomerular Filt Rate > 60; Glucose Random 94 mg/dL (60-115); Potassium 4.3 mmol/L (3.3-5.1); Sodium 139 mmol/L (135-145); Total Protein 8.8 g/dL (6.5-8.0)
[2023-12-30 11:13] LABS: Hepatitis A Antibody IgG REACTIVE (Nonreactive); ~Hepatitis A Antibody IgG 1.68 S/CO (0.00-0.99)
[2023-12-30 11:14] LABS: Vitamin D 25-OH Total 11.7 ng/mL (>30)
[2023-12-30 11:31] LABS: Folate 5.9 ng/mL (> or = 4.0); Vitamin B12 467 pg/mL (200-900)
[2024-01-02 10:54] LABS: TS Negative Control Passed; TS Panel A 7; TS Panel B 6; TS Positive Control Passed; TSpotTB Borderline (Negative)
[2024-01-07 18:03] LABS: Anti-Adalimumab Antibody <10 AU (<10)
== END 2023-12-30 08:40 | disposition home or self-care (01) ==
LOC: HO.LAB 08:39
PROVIDERS: Visit Provider Internal Medicine Gastroenterology
DX: K50.811 Crohn's disease of both small and large intestine with rectal bleeding (principal); Z79.899 Other long term (current) drug therapy
CPT/HCPCS: 36415; 80053; 80145; 80299; 82248; 82306; 82607; 82746; 83520; 85025; 86140; 86481; 86708

== ENCOUNTER 2024-04-03 15:06 | Emergency (ER) | payer OTHER, SELFPAY ==
--- NOTE | ~2024-04-03 | CT_ITS ---
EXAMINATION: CT ABDOMEN AND PELVIS WITH CONTRAST CLINICAL INFORMATION: Right lower quadrant pain. COMPARISON: None available. TECHNIQUE: Multidetector volumetric images were obtained from the superior aspect of the liver through the pubic symphysis following administration 85 mL of Omnipaque 350 intravenous contrast. Sagittal and coronal reformatted images were obtained on the technologist's workstation. Oral contrast: No This CT examination was performed using dose optimization techniques as appropriate, variously including the following: *Automated exposure control *Adjustment of mA and/or kV according to patient size (this includes techniques or standardized protocols for targeted exams where dose is matched to indication/reason for exam; i.e. extremities or head) *Use of iterative reconstruction technique DLP: 712 mGy-cm FINDINGS: LUNG BASES: The visualized lung bases are unremarkable. LIVER, GALLBLADDER, AND BILIARY TREE: The liver is normal in size, shape, and attenuation. No focal hepatic lesion or biliary ductal dilatation is present. The gallbladder is unremarkable with no evidence of radiopaque gallstones, gallbladder wall thickening, or obvious pericholecystic inflammatory changes. PANCREAS: Unremarkable. SPLEEN: Unremarkable. ADRENAL GLANDS: Unremarkable. KIDNEYS AND URETERS: The kidneys are normal in size, shape, and attenuation. No hydronephrosis, hydroureter, or calculi seen. No perinephric stranding. BLADDER: Unremarkable. GASTROINTESTINAL TRACT: There is thickening of the distal small bowel/terminal ileum extending to the cecum with cecal thickening as well and infiltrative change right lower quadrant along the cecum. There are small lymph nodes along the cecum. The appendix is not identified separate structure. ABDOMINAL WALL: No significant hernia is appreciated. LYMPH NODES: Normal. VASCULAR: Unremarkable. PELVIC VISCERA: Unremarkable. OSSEOUS STRUCTURES: Unremarkable. CT/CT abdomen pelvis w IV con IMPRESSION: Thickening of the distal small bowel/terminal ileum extending to the cecum with infiltrative change in the right lower quadrant. The appendix is not identified separate structure. Findings consistent with terminal ileitis and cecal colitis. Inflammatory bowel disease is a consideration. Other considerations would include inflammatory bowel disease. Appendicitis cannot entirely excluded. Fleischner guidelines were followed.
[2024-04-03 15:53] VITALS: BP 127/86; PULSE 73; RESP 18; TEMP 36.8; O2SAT 100; BMI 28.2
--- NOTE | 2024-04-03 15:53 | ED_ITS ---
HPI - General Adult General Chief complaint: Abdominal Pain Stated complaint: abd pain sent from urgent care ? appendicitis Time Seen by Provider: 04/04/24 00:34 Source: patient, RN notes reviewed and old records reviewed Mode of arrival: ambulatory Limitations: no limitations History of Present Illness ED Provider: Brian HPI narrative: 28-year-old male past medical history significant for Crohn's disease presents for evaluation of right lower abdominal pain. Patient states that he has had on and off pains in the right lower abdomen for about 2 weeks. He states the pain feels different than his previous episodes of Crohn's flares He denies any fevers, chills or vomiting but does endorse nausea His pain is 6/10. He reports that he went to urgent care and was referred to the ER to rule out acute appendicitis due to the location of his pain He denies any urinary complaints Denies any previous abdominal surgeries The patient states that he has been on Humira for the last 3 years and felt he has been fairly well controlled He has previously been on Remicade for 6 years prior to that Related Data Previous Rx's ?Medication ?Instructions ?Recorded albuterol sulfate 90 mcg/actuation 1 inh inhalation QID PRN shortness 01/14/22 aerosol inhaler of breath or wheezing #8.5 grams mupirocin 2 % topical ointment 1 appl topical TID #22 grams 01/14/22 ibuprofen 400 mg tablet 400 mg PO Q6H PRN pain #20 tabs 03/03/23 azathioprine 50 mg tablet 100 mg (2 x 50 mg) PO DAILY 90 09/02/23 days #180 tabs cholecalciferol (vitamin D3) 250 250 mcg PO 2XW 90 days #26 caps 09/02/23 mcg (10,000 unit) capsule adalimumab 40 mg/0.4 mL 40 mg (0.4 mL) subcut QWEEK 8 12/24/23 subcutaneous pen kit (Humira(CF) weeks #8 ea Pen) ferrous sulfate 325 mg (65 mg 325 mg PO BID 50 days #100 tabs 01/07/24 iron) tablet methotrexate (PF) 15 mg/0.4 mL 15 mg (0.4 mL) subcut QWEEK 4 02/14/24 subcutaneous auto-injector weeks #1.6 mL Allergies Allergy/AdvReac Type Severity Reaction Status Date / Time ampicillin [AMPICILLIN] Allergy Mild SWELLING, Verified 04/03/24 15:55 anaphylaxis Review of Systems 2 Constitutional: Constitutional: Denies body ache(s), Denies chills, Denies fever(s) and Denies headache(s) Eyes: Eyes: Denies blurry vision ENT: Denies vertigo and Denies headache(s) Cardiovascular: Cardiovascular: Denies chest pain and Denies dyspnea Respiratory: Respiratory: Denies cough and Denies dyspnea Gastrointestinal: Gastrointestinal: Reports abdominal pain, Denies hematochezia, Reports nausea and Denies vomiting Genitourinary: Genitourinary: Denies dysuria Musculoskeletal: Musculoskeletal: Denies back pain Integumentary/Breasts: Skin/Breast: Denies rash Neurologic: Denies vertigo and Denies headache(s) [facility] Past Medical History Medical History Nonimmune to hepatitis B virus Hepatitis A immune Crohn's disease Surgical History Hx of colonoscopy (10/27/19) Hx of esophagogastroduodenoscopy (10/27/19) History of ankle surgery (~02/2017) Hx of tonsillectomy Social History Social History Household Members: Family Alcohol intake: current Alcohol intake frequency: does not drink Patient Tobacco Use Status: Never used Tobacco Smoked in Last 30 Days: No Substance Use Type: IV Drugs Advance Directives: No Advance Directives Information Provided: Yes Do you have a plan to hurt others: No Plan Current occupation: Works at [employer] Physical Exam ED Vital Signs: Vital Signs - 24 hr 04/03/24 15:53 04/03/24 17:51 04/03/24 22:33 Temperature 98.2 F 97.6 F 98.0 F Pulse Rate 73 59 89 Respiratory Rate 18 16 18 Blood Pressure 127/86 139/81 149/96 H Pulse Oximetry 100 100 100 Oxygen Delivery Method Room Air Room Air Room Air 04/04/24 01:05 04/04/24 01:54 Temperature 99.4 F Pulse Rate 75 Respiratory Rate 18 17 Blood Pressure 120/79 Pulse Oximetry 98 Oxygen Delivery Method Room Air BMI result Body Mass Index 28.2 Const General: healthy appearing, comfortable, no acute distress, alert and awake Nutritional Appearance: well nourished Orientation/consciousness: patient oriented x3 HENMT Head: Yes normocephalic and Yes atraumatic Eyes Eyelids: Yes eyelids normal Conjunctivae: conjunctivae normal Sclerae: sclerae normal Corneas: corneas normal Pupils: Equal, round and reactive pupils present EOM: EOMs intact bilaterally Neck Neck: Yes full ROM Resp Effort & Inspection: normal respiratory effort, able to speak in complete sentences and not labored Cardio Rate: regular rate Rhythm: regular rhythm GI Inspection: No distended Palpation (GI): Soft to palpation, not firm, Tenderness to palpation present (GI) in the RLQ and at McBurney's point; not in the LLQ, not in the LUQ, not in the RUQ and with no rebound tenderness, Guarding due to palpation present (GI) in the RLQ (Only right lower quadrant) and not rigid Skin General skin exam: elasticity normal Neuro General: patient oriented x3 Cranial nerves: Yes Equal, round and reactive pupils present and Yes Bilaterally intact EOM present Cognition (Neuro): normal cognition Extrem Other: Moving all extremities well without any obvious deformities Course Course Course Narrative: RME performed by Meseret Zamudio PA-C. Patient is a 28 year old assigned male at presenting to the emergency department with abdominal pain Patient states he has a history of crohn's but has been having increased pain, especially in the RLQ for days. Patient states that he went to an urgent care that recommended he come here for additional testing. Detailed physical exam and review of systems are deferred to the home health clinician. Labs ordered. Patient placed back in the waiting room pending room availability and results. Reevaluation(s) Reevaluation #1: This patient was signed out to me at change of shift by the physician's bakery assistant who saw the patient initially. The patient is a 28-year-old male with a history of Crohn's disease. He is on Humira. He has had Crohn's disease for about 11 years. He presented for evaluation of right lower quadrant pain that has been coming on for the last 2 or 3 weeks. He has a normal white count. CRP seems to be at baseline. CT scan of the abdomen and pelvis shows significant inflammatory changes in the right lower quadrant consistent with terminal ileitis and cecal colitis. The appendix could not be distinctly identified and therefore the radiologist said he could not completely exclude appendicitis. Patient felt considerably better after a dose of ibuprofen in the emergency room. He says that he is feeling hungry. Clinically I think terminal ileitis secondary to Crohn's disease is much more likely the cause of the patient's symptoms then appendicitis and I think the patient may be discharged. The case was discussed with Dr. Cota. The patient will be advised to called Dr. Burton in the morning. Time: 04:04 Medications Administered Discontinued Medications Generic Name Dose Route Start Last Admin Trade Name Eric PRN Reason Stop Dose Admin Ibuprofen 600 mg 04/04/24 00:39 04/04/24 01:33 Ibuprofen 600 Mg Tablet PO 04/04/24 00:40 600 mg ONCE ONE Administration Iohexol 85 ml 04/04/24 01:15 04/04/24 01:15 Iohexol 350 Mg/Ml 100 Ml Infus..Btl IV 04/04/24 01:16 85 ml ONCE ONE Administration Medical Decision Making Medical Decision Making [facility] Narrative: 28-year-old male with history of Crohn's presents for evaluation right lower quadrant abdominal pain. On exam he is tender in the right lower quadrant with guarding, no rebound tenderness. The patient has no leukocytosis, but again is on immunomodulators. He does have a mild anemia consistent with his baseline. Given the location of his tenderness and guarding, plan for CT scan of the abdomen pelvis to evaluate for acute appendicitis Differential Diagnosis Differential Diagnoses: The differential diagnosis associated with the presentation includes Acute appendicitis Crohn's flare Abdominal pain Terminal ileitis Lab Data [facility] Lab Attestation statement: I reviewed the patient's lab results. No leukocytosis. The patient does have a mild anemia consistent with baseline. Platelet count is elevated also consistent with baseline. No significant electrolyte abnormalities 04/03/24 16:04 04/03/24 16:04 Labs: Lab Results 04/03/24 04/03/24 04/04/24 Range/Units 16:04 16:09 01:01 WBC 7.4 (4.8-10.8) X10*3/uL RBC 5.09 (4.60-5.80) X10*6/uL Hgb 10.3 L (14.0-18.0) g/dl Hct 34.5 L (42.0-52.0) % MCV 67.8 L (80.0-98.0) fL MCH 20.2 L (27.0-33.0) pg MCHC 29.9 L (31.0-36.0) g/dl RDW 20.7 H (11.0-16.0) % Plt Count 620 H (160-400) X10*3/uL MPV 8.0 L (9.4-12.4) fL Immature Gran % (Auto) 0.4 (0.0-0.4) % Neut % (Auto) 77.1 H (45-73) % Lymph % (Auto) 12.4 L (20-40) % [place] % (Auto) 8.0 (2-11) % Eos % (Auto) 1.3 (0-4) % Baso % (Auto) 0.8 (0-2) % Lymph # (Auto) 0.9 L (1.2-4.9) X10*3/uL [place] # (Auto) 0.6 (0.1-1.2) X10*3/uL Eos # (Auto) 0.1 (0.0-0.4) X10*3/uL Baso # (Auto) 0.1 (0.0-0.2) X10*3/uL Abs Immat Gran (auto) 0.03 (0.00-0.03) X10*3/uL Absolute Neuts (auto) 5.7 (2.0-8.3) x10*3/uL Absolute Nucleated RBC 0.000 (0.0-0.012) X10*3/uL Nucleated RBC % (auto) 0.0 (0.0-0.2) /100WBC ESR 51 H (0-15) MM/HR Sodium 141 (135-145) mmol/L Potassium 3.7 (3.3-5.1) mmol/L Chloride 104 (96-108) mmol/L Carbon Dioxide 25 (22-29) mmol/L Anion Gap 16 (12-20) BUN 10 (9-16) mg/dL Creatinine 0.79 (0.5-1.4) mg/dL Estim Creat Clear Calc 153.1 Estimated GFR > 60 Random Glucose 92 (60-115) mg/dL Calcium 9.4 (8.4-10.2) mg/dL Magnesium 2.0 (1.6-2.6) mg/dL Total Bilirubin 0.5 (0.0-1.0) mg/dL AST 18 (5-37) U/L ALT 15 (0-40) U/L Alkaline Phosphatase 63 (39-117) U/L C-Reactive Protein 7.57 H (< or = 0.50) mg/dL Total Protein 8.0 (6.5-8.0) g/dL Albumin 3.5 (3.5-5.0) g/dL Urine Color Dark Yellow Urine Appearance Cloudy Urine pH 5.5 (5.0-9.0) Ur Specific [place] >= 1.030 H (1.005-1.025) Urine Protein 30 (1+) H (Neg-Trace) mg/dL Urine Glucose (UA) Negative (Negative) mg/dL Urine Ketones Trace (Negative) mg/dL Urine Blood Negative (Negative) Urine Nitrite Negative (Negative) Ur Leukocyte Esterase Trace H (Negative) Urine RBC 0-2 (0-2) /HPF Urine WBC 0-5 (0-5) /HPF Ur Squamous Epith Cells >20 (0-2) /HPF Urine Bacteria None Seen (None Seen) Hyaline Casts >20 (0-2) /LPF Discharge Plan Discharge Clinical Impression: Right lower quadrant abdominal pain, Terminal ileitis, Crohn's disease Patient Disposition: Home, Self-Care Additional Instructions: Your CT scan is showing inflammatory changes in the end of your small intestine (this is called terminal ileitis) and also in the 1st part of your large intestine (this is called cecal colitis). Inflammation of this kind and in this area of the bowels is often seen in people with Crohn's disease. The radiologist could not see your appendix on the scan because of the inflammation of the terminal ileum and the cecum but I think it is unlikely that you have appendicitis today. Please plan on calling your regular heating element repairer in the morning to discuss this further. Return to the emergency room if significantly worse. Prescriptions: No Action Humira(CF) Pen 40 mg/0.4 mL pen injector kit 40 mg subcut QWEEK 56 Days Qty: 8 2RF ferrous sulfate 325 mg (65 mg iron) tablet 325 mg PO BID 50 Days Qty: 100 2RF methotrexate (PF) 15 mg/0.4 mL auto-injector 15 mg subcut QWEEK 28 Days Qty: 1.6 1RF albuterol sulfate 90 mcg/actuation HFA aerosol inhaler 1 inh inhalation QID PRN (Reason: shortness of breath or wheezing) Qty: 8.5 0RF mupirocin 2 % ointment 1 appl topical TID Qty: 22 0RF ibuprofen 400 mg tablet 400 mg PO Q6H PRN (Reason: pain) Qty: 20 0RF cholecalciferol (vitamin D3) 250 mcg (10,000 unit) capsule 250 mcg PO 2XW 90 Days Qty: 26 1RF azathioprine 50 mg tablet 100 mg PO DAILY 90 Days Qty: 180 1RF Referrals: Fuentes Burton MD [Physician] - (Right lower quadrant pain, terminal ileitis, cecal colitis, Crohn's disease) Print Language: Azerbaijani
[2024-04-03 16:09] LABS: MANUAL DIFF FLAG NO
[2024-04-03 16:12] LABS: Basophils Absolute Auto 0.1 X10*3/uL (0.0-0.2); Basophils Percent Auto 0.8 % (0-2); Eosinophils Absolute Auto 0.1 X10*3/uL (0.0-0.4); Eosinophils Percent Auto 1.3 % (0-4); Hematocrit 34.5 % (42.0-52.0); Hemoglobin 10.3 g/dl (14.0-18.0); Imm Gran Abs Auto 0.03 X10*3/uL (0.00-0.03); Imm Gran Pct Auto 0.4 % (0.0-0.4); Lymphocytes Absolute Auto 0.9 X10*3/uL (1.2-4.9); Lymphocytes Percent Auto 12.4 % (20-40); Mean Corpuscular HGB Conc 29.9 g/dl (31.0-36.0); Mean Corpuscular Hemoglobin 20.2 pg (27.0-33.0); Mean Corpuscular Volume 67.8 fL (80.0-98.0); Monocytes Absolute Auto 0.6 X10*3/uL (0.1-1.2); Neutrophils Absolute Auto 5.7 x10*3/uL (2.0-8.3); Neutrophils Percent Auto 77.1 % (45-73); Platelet Count 620 X10*3/uL (160-400); Red Blood Count 5.09 X10*6/uL (4.60-5.80); Red Cell Distribution Width 20.7 % (11.0-16.0); White Blood Count 7.4 X10*3/uL (4.8-10.8)
[2024-04-03 16:30] LABS: Appearance Urine Cloudy; Color Urine Dark Yellow; Glucose Urine UA Negative (Negative); Leukocyte Esterase Urine Trace (Negative); Nitrite Urine Negative (Negative); PH 5.5 (5.0-9.0); Specific Gravity - Urine >= 1.030 (1.005-1.025); UMIC TRIGGER UACC YES; Urine Blood Negative (Negative); Urine Ketones Trace mg/dL (Negative); Urine Protein 30 (1+) mg/dL (Neg-Trace)
[2024-04-03 16:36] LABS: Alanine Aminotransferase 15 U/L (0-40); Albumin Level 3.5 g/dL (3.5-5.0); Alkaline Phosphatase 63 U/L (39-117); Anion Gap 16 (12-20); Aspartate Amino Transferase 18 U/L (5-37); Bilirubin Total 0.5 mg/dL (0.0-1.0); Blood Urea Nitrogen 10 mg/dL (9-16); Calcium 9.4 mg/dL (8.4-10.2); Carbon Dioxide 25 mmol/L (22-29); Chloride 104 mmol/L (96-108); Creatinine Clr Calc Pharmacy 153.1; Estimated Glomerular Filt Rate > 60; Glucose Random 92 mg/dL (60-115); Potassium 3.7 mmol/L (3.3-5.1); Sodium 141 mmol/L (135-145)
[2024-04-03 16:43] LABS: Bacteria Urine None Seen (None Seen); Hyaline Casts Urine >20 /LPF (0-2); RBC Urine 0-2 /HPF (0-2); Squamous Epithelial Cell Urine >20 /HPF (0-2); WBC Urine 0-5 /HPF (0-5)
[2024-04-03 17:51] VITALS: BP 139/81; PULSE 59; RESP 16; TEMP 36.4; O2SAT 100
[2024-04-03 22:33] VITALS: BP 149/96; PULSE 89; RESP 18; TEMP 36.7; O2SAT 100
--- NOTE | 2024-04-04 00:16 | PC.NURSE ---
pt from waiting room,assume care of pt at this time. Pt states he was sent here for appendix check
[2024-04-04 01:05] VITALS: RESP 18
[2024-04-04] MEDS: iohexoL 350 MG/ML 100 ML INFUS..BTL 85 ML IV (01:15)
[2024-04-04 01:19] LABS: C Reactive Protein 7.57 mg/dL (< or = 0.50)
[2024-04-04] MEDS: Ibuprofen 600 MG TABLET PO (01:33)
[2024-04-04 01:46] LABS: Erythrocyte Sedimentation Rate 51 MM/HR (0-15)
[2024-04-04 01:54] VITALS: BP 120/79; PULSE 75; RESP 17; TEMP 37.4; O2SAT 98
[2024-04-04 04:05] VITALS: BP 120/78; PULSE 62; RESP 17; TEMP 36.8; O2SAT 99
[2024-04-04 04:20] VITALS: BP 120/78; PULSE 88; RESP 17; TEMP 36.8; O2SAT 99
== END 2024-04-04 04:21 | disposition home or self-care (01) ==
PROVIDERS: Physician Assistant; Physician Assistant Medical; Emergency Provider Emergency Medicine
DX: R10.31 Right lower quadrant pain (principal); K50.00 Crohn's disease of small intestine without complications
CPT/HCPCS: 36415; 74177; 80053; 81001; 83735; 85025; 85652; 86140; 99284; Q9967

== ENCOUNTER 2024-04-07 09:52 | Outpatient (AMB) | payer OTHER, SELFPAY ==
--- NOTE | 2024-04-07 09:56 | A.OFFVIS_ITS ---
Vital Signs 04/07/24 09:59 Height 5 ft 9 in Weight 195 lb BMI 28.8 BP 119/62 Blood Pressure Location Lt brachial Position Sitting Pulse 81 Intake Visit Reasons: abnormal results Intake Note: Patient follow up for CT/ED abnormal result Patient cc: Nauseas on and off, abdominal pain/bloating, and constipation. Inset Cutter Required: No Accompanied by: Self / Same As Patient Allergies ampicillin [AMPICILLIN] Allergy (Mild, Verified 04/07/24 09:56) SWELLING, anaphylaxis Medication List - Last Reconciled 04/07/24 by Fuentes Burton MD adalimumab (Humira(CF) Pen) 40 mg (0.4 mL) subcut QWEEK 8 weeks albuterol sulfate 90 mcg/actuation 1 inh inhalation QID PRN cholecalciferol (vitamin D3) 250 mcg PO 2XW 90 days ferrous sulfate 325 mg PO BID 50 days ibuprofen 400 mg PO Q6H PRN methotrexate (PF) 15 mg (0.4 mL) subcut QWEEK 4 weeks mupirocin 2% 1 appl topical TID HPI HPI abnormal results: Details: GI CLINIC VISIT FOR THIS 28-YEAR-OLD MALE FOLLOWED IN GI FOR 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 Patient was on Remicade for 6 yrs with breakthrough symptoms. Patient was started on Humira on 12/12/19 and dose of Humira was increased to 40 mg every week on 06/21/20 with significant? improvement in his symptoms. Pt scheduled for an urgent FU appt after recent evaluation at [facility] for RLQ abdominal pain. ?CHRONIC ILLNESSES:?PERIANAL FISTULA, CROHN'S DISEASE OF BOTH SMALL AND LARGE INTESTINE WITH RECTAL BLEEDING, IMMUNOSUPPRESSED STATUS, HIGH BMI, HEP A IMMUNE, HEP B NON- IMMUNE ?TODAY'S VISIT: Continues to have 8-9/10 RLQ pain - comes and goes Feels uncomfortable - denies change in Abd pain after eating. Has 4-5 BM/day begining of the week. Has 7-8 BM per day on as Humira starts wearing off Takes Humira every Wednesday. Takes MTX 15 mg every Wednesday and advised to change to Wednesday Recurrent eye problems last month - using eye drops and scheduled to see the eye doctor next week ? LABS IN [facility]: 12/13/19 normal CBC with H&H of 12.5 and 37.9 with microcytosis and hypochromia, ? ESR 31, CRP 6.94, vitamin-D 14.4 , T spot was negative ? Stool cold calprotectin was elevated at 1796.5 ?IMAGING STUDIES: 04/04/[address] SCAN SHOWED: Thickening of the distal small bowel/terminal ileum extending to the cecum with infiltrative change in the right lower quadrant. The appendix is not identified separate structure. Findings consistent with terminal ileitis and cecal colitis. Inflammatory bowel disease is a consideration. Other considerations would include inflammatory bowel disease. Appendicitis cannot entirely excluded. 12/20/19 MR ENTEROGRAPHY SHOWED: ? IMPRESSION: ? Nonobstructive active inflammation involving distal 15 cm ileum. No proximal obstruction, visible cobblestoning, fistula, or fluid collection. ?ENDOSCOPIC STUDIES: 10/29/22 EGD AND COLON SHOWED: Endoscopy Findings: STOMACH: Gastritis DUODENUM: Three 4-5 mm chronic appearing healing ulcers in the descending duodenum - biopsied Colonoscopy Findings: No polyps were detected Active right sided colitis due to Crohn's disease (Cecum, ICV and AC). Patchy erythema with friable appearing mucosa without ulcers in the transverse and left colon. Active etienne-anal Crohn's disease Moderate diverticulosis seen in the sigmoid colon Plan: Repeat Colonoscopy interval based on path results - in 1- 2 years for FU of Crohn's disease 10/27/2019 EGD AND COLONOSCOPY SHOWED:? STOMACH: Mild gastric erythema with edematous folds with aphthoid ulcers in the ? antrum. Biopsies were obtained. Grade 1 flap valve on retroflexed examination of the cardia. ? DUODENUM: Duodenitis with multiple 5-6 mm ulcers in the bulb - biopsied. A ? few 4-5 mm ulcers in the 2nd/3rd part of the duodenum - biopsies were obtained ? Colonoscopy Findings: ? Terminal Ileum Distal 7-8 cms was examined and showed cobblestoning with ? chronic appearing serpiginous ulcers with white exudates - biopsies were ? obtained for histology and viral cultures. ? Ulcerated ICV. A few 4-5 mm pseudopolyps in the right colon. ? Moderate diverticulosis seen in the sigmoid colon ? Moderate internal hemorrhoids, perianal skin tags with ulceration in the anal ? canal consistent with active etienne-anal Crohn's disease. ? Plan: ? I will discuss switching from Remicade to Humira with the patient at his FU visit. ? Patient has an appointment on 11/10/19 in the GI Clinic with Fuentes Burton M.D.- ? Repeat Colonoscopy interval based on path results - in 2- 3 years for surveillance biopsies. ? Biopsies showed: ? A. Small bowel, biopsies: Acute duodenitis; negative for dysplasia/malignancy. ? B. Stomach, bulb, biopsies: Marked active gastritis; negative for Helicobacter; ? negative for granulomas; negative for dysplasia/malignancy. ? C. Stomach, antrum, biopsies: Marked active gastritis; negative for Helicobacter; ? negative for granulomas; negative for dysplasia/malignancy. ? D. Terminal ileum, biopsies: Chronic, severe active ileitis; negative for granulomas; negative for dysplasia/malignancy. ? E. Ileocecal valve, biopsies: Severe active, chronic colitis; negative for granulomas; ? negative for dysplasia/malignancy. F. Colon, right, biopsies: Colonic mucosa within normal limits; no active ? inflammation; negative for granulomas; negative for dysplasia/malignancy. ? G. Colon, left, biopsies: Colonic mucosa within normal limits; no active inflammation; ? negative for granulomas; negative for dysplasia/malignancy. ? 8. Rectum, biopsies: Colonic mucosa within normal limits; no active inflammation; ? negative for granulomas; negative for dysplasia/malignancy ?IBD SUMMARY ? Year of diagnosis: 02/2014 - presented with diarrhea, abd pain, bloody stools and fatigue, weight loss from 230 to 170 lbs. ? Extent of disease: Small intestine and ? Colon. EGD and colonoscopy showed duodenitis, gastritis diffuse inflammation of the ileum and colon ? PREVIOUS ENDOSCOPIES: 10/2019 EGD showed gastritis and duodenitis. Same- day colonoscopy showed: Cobblestoning with chronic appearing serpiginous ulcers in TI with white exudates, ulcerated ICV. A few 4-5 mm pseudopolyps in the right colon and moderate sigmoid diverticulosis. Moderate internal hemorrhoids, perianal skin tags with ulceration in the anal canal consistent with active etienne-anal Crohn's disease. Biopsies were negative for CMV and HSV and showed chronic inflammation. 03/05 EGD AND COLON- diffuse inflammation of the ileum, colon , duodenitis and gastritis? 01/06 Colonoscopy - mild to moderate inflammation? 01/07 C OLONOSCOPY SHOWED ulceration the terminal ileum, pseudopolyps in the ascending colon, normal mucosa in the whole colon, internal hemorrhoids. Digital rectal examination was abnormal with skin tags and no fistula. Biopsy showed active ileitis, severe with ulceration of the terminal ileum and active mild focal colitis in the right and left colon. No granulomas or dysplasia was seen. ? Last Colonoscopy: ? October 2018 - a little bit of inflammation and treated with steroids and increased dose of Remicade 10 mg/kg every 4 weeks. ? NEXT COLONOSCOPY DUE: in 2-3 yrs ? PAST SURGERY: NONE ? PAST TREATMENTS: Methotrexate, Steroids, and then Remicade, Budesonide 01/2017 - stopped after 1 month. (PT DOES NOT LIKE TAKING PILLS) ? CURRENT TREATMENT: Humira every week and Azathioprine 50 mg once daily. ? ASSOCIATED DIAGNOSIS: Perianal fistula, denies EIM ? IMMUNIZATIONS: Gets a flu shot every year. Pneumococcal 23 vaccination and Pneumovax were completed in September 2017. ? LAST PPD/TB TEST: Aug 2019 NEGATIVE ? PAST VISIT: Complains of intermittent LUQ abd pain - comes and goes Can feel like a sharp pain and resolves after 1-2 minutes. Denies association with eating. Can happen randomly while he is watching TV. Can have 5 or more BMs a day Notes blood in the stool when he gets abdominal cramps Denies nocturnal diarrhea Had eye symptoms 3 weeks ago which resolved after he used steroid drops Requesting a refill for Vitamin D Denies abdominal pain or diarrhea. Has 3-4 BMs a days and sometimes upto 5. Feels well with improved energy levels He was having some eye problems and referred to the Eye Doctor He was told Crohn's disease was affecting his eyes (? Uveitis) and prescribed some eye drops Eye is better now. Mon and Tues and increase to 4 and 5 on and Wednesday. Takes injection in the morning and if he forgets then 5 pm in the evening Taking Humira every Wednesday. Diarrhea comes and goes _ nothing crazy Can have 4-5 BMs a day - sometimes with blood. Notes abdominal cramping 1-2 days before next Humira injection Taking Vitamin D intermittently. Has a BM 3 times a day - vary between soft and solid. Notes some blood once in a while. Denies?any symptoms of recurrent perianal fistula. Pt has gained 14 lbs over the past 4 months. I am doing really good Inquirlyira is doing its job. No abdominal pain or bloody stools. Eye problem has resolved. ? Pt states that he has been doing really good! no GI sx. ? Notes resolution of abdominal cramps and rectal bleeding. ? Has 4 normal BMs a day. ? Taking Humira every week and is taking azathioprine. ? Feels Humira is helping. ? Wt is stable at 190- 200 lbs. Saw the ophalmologist - felt he had sand in his eyes - prescribed eye drops with resolution of symptoms [facility] Medical History Nonimmune to hepatitis B virus Hepatitis A immune Crohn's disease Surgical History Hx of colonoscopy (10/27/19) Hx of esophagogastroduodenoscopy (10/27/19) History of ankle surgery (~02/2017) Hx of tonsillectomy Social History Household Members: Family Alcohol intake: current Alcohol intake frequency: does not drink Patient Tobacco Use Status: Never used Tobacco Substance Use Type: IV Drugs Current occupation: Works at [employer] Review of Systems Const All systems reviewed & are unremarkable except as noted in HPI and below Physical Exam Vital Signs: Last Vital Signs Pulse 81 04/07/24 09:59 BP 119/62 04/07/24 09:59 BMI result Body Mass Index 28.8 Const General: healthy appearing and no acute distress Nutritional Appearance: obese Orientation/consciousness: patient oriented x3 Limitations: no limitations HEENT Head: Yes normal to inspection Ears: hearing grossly normal bilaterally Mouth: Normal oral and palatal mucosa present Eyes Sclerae: sclerae normal Pupils: Equal, round and reactive pupils present Neck Neck: Yes normal visual inspection Chest Chest palpation & inspection: normal inspection of the chest Resp Effort & Inspection: normal respiratory effort Auscultation: clear to auscultation bilaterally Cardio Palpation: normal PMI Rate: regular rate Rhythm: regular rhythm Heart sounds: S1 normal heart sound present, S2 normal heart sound present and no murmurs GI Palpation (GI): Soft to palpation, nontender and No hepatosplenomegaly present Auscultation: normal bowel sounds Rectal Exam - Male: Yes deferred Skin General skin exam: no rashes or lesions noted Neuro General: patient oriented x3, gait normal and moves all extremities Cranial nerves: Yes Equal, round and reactive pupils present Psych Appearance: grossly normal Mental Status: mental status grossly normal Assessment & Plan Assessment & Plan (1) Iron deficiency anemia: Code(s): D50.9 - Iron deficiency anemia, unspecified Category: Medical (2) Perianal fistula: Code(s): K60.3 - Anal fistula Category: Medical (3) Crohn's disease of both small and large intestine with rectal bleeding: Code(s): K50.811 - Crohn's disease of both small and large intestine with rectal bleeding Category: Medical Plan 28 YM with PERIANAL FISTULA, CROHN'S DISEASE OF BOTH SMALL AND LARGE INTESTINE WITH RECTAL BLEEDING, IMMUNOSUPPRESSED STATUS, HIGH BMI, HEP A IMMUNE, HEP B NON- IMMUNE followed in GI for Crohn's Disease involving small and large intestine.. Pt was being treated with Remicade 10 mg/kg every 4 weeks and noted breakthrough symptoms 3 weeks after Remicade infusion. 11/09 EGD showed gastritis and duodenitis. Same-day colonoscopy showed:? Cobblestoning with chronic appearing serpiginous ulcers in TI with white exudates, ulcerated ICV. A few 4-5 mm pseudopolyps in the right colon and moderate sigmoid diverticulosis. Moderate internal hemorrhoids, perianal skin tags with ulceration in the anal canal consistent with active etienne-anal Crohn's disease. Biopsies were negative for CMV and HSV and showed chronic inflammation. 12/20/19 MR enterography showed nonobstructive active inflammation involving distal 15 cm ileum. No proximal obstruction, visible cobblestoning, fistula, or fluid collection. Patient was started on Humira on 12/12/19 and dose of Humira was increased to 40 mg every week on 06/21/20 with significant? improvement in his symptoms. Patient was advised to continue Humira 40 mg every week and continue azathioprine 50 mg daily. 10/2022 EGD and Colonoscopy were performed and results as noted. Pt started on azathioprine 50 mg daily due to low adalumimab levels. 01/14/23 Pt advised to have labs checked today. If labs are normal, I will in crease azathioprine to 100 mg daily. 01/10/24 Pt started on MTX 15 mg every week and azathioprine was discontinued 04/07/24 Pt seen in the ED on 04/04/[address] findings as noted above Pt advised repeat labs and start prednisone taper over 4 weeks 04/21/24 Labs reviewed with the patient. Advised to increase Humira to 80 mg every week Dated prescriptions sent. Follow-up in 6 weeks. Orders: Orders T Spot TB 04/07/24 K50.811 - Crohn's disease of both small and large intestine with rectal bleeding Medications: New prednisone Take 4 tablets daily for a week Take 3 tablets daily for a week Take 2 tablets daily for a week Take 1 tablets daily for a week 10 mg PO DAILY 70 tabs 0RF 4 weeks Changed From methotrexate (PF) 15 mg (0.4 mL) subcut QWEEK 4 weeks 1.6 mL 1RF K50.811 - Crohn's disease of both small and large intestine with rectal bleeding To methotrexate (PF) 20 mg (0.5333 mL) subcut QWEEK 2.133 mL 3RF 4 weeks K50.811 - Crohn's disease of both small and large intestine with rectal bleeding Refilled cholecalciferol (vitamin D3) 250 mcg PO 2XW 26 caps 1RF 90 days E55.9 - Vitamin D deficiency, unspecified Coding Level of Care Code Est Pt Level 4 (81497) Diagnoses Iron deficiency anemia D50.9 Perianal fistula K60.3 Crohn's disease of both small and large intestine with rectal bleeding K50.811 Time Spent (min) 20
--- NOTE | 2024-04-07 09:56 | A.OFFVIS_ITS ---
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 Patient was on Remicade for 6 yrs with breakthrough symptoms. Patient was started on Humira on 12/12/19 and dose of Humira was increased to 40 mg every week on 06/21/20 with significant? improvement in his symptoms. Pt scheduled for urgent FU appt after he was seen at [facility] ED on 04/03/24 with RLQ pain ?CHRONIC ILLNESSES:?PERIANAL FISTULA, CROHN'S DISEASE OF BOTH SMALL AND LARGE INTESTINE WITH RECTAL BLEEDING, IMMUNOSUPPRESSED STATUS, HIGH BMI, HEP A IMMUNE, HEP B NON- IMMUNE ? LABS IN [facility]: 12/13/19 normal CBC with H&H of 12.5 and 37.9 with microcytosis and hypochromia, ? ESR 31, CRP 6.94, vitamin-D 14.4 , T spot was negative ? Stool cold calprotectin was elevated at 1796.5 ?IMAGING STUDIES: 04/03/[address] SCAN SHOWED: Thickening of the distal small bowel/terminal ileum extending to the cecum with infiltrative change in the right lower quadrant. The appendix is not identified separate structure. Findings consistent with terminal ileitis and cecal colitis. Inflammatory bowel disease is a consideration. Other considerations would include inflammatory bowel disease. Appendicitis cannot entirely excluded. 12/20/19 MR ENTEROGRAPHY SHOWED: ? Nonobstructive active inflammation involving distal 15 cm ileum. No proximal obstruction, visible cobblestoning, fistula, or fluid collection. ENDOSCOPIC STUDIES: 10/29/22 EGD AND COLON SHOWED: Endoscopy Findings: STOMACH: Gastritis DUODENUM: Three 4-5 mm chronic appearing healing ulcers in the descending duodenum - biopsied Colonoscopy Findings: No polyps were detected Active right sided colitis due to Crohn's disease (Cecum, ICV and AC). Patchy erythema with friable appearing mucosa without ulcers in the transverse and left colon. Active etienne-anal Crohn's disease Moderate diverticulosis seen in the sigmoid colon Plan: Repeat Colonoscopy interval based on path results - in 1- 2 years for FU of Crohn's disease 10/27/2019 EGD AND COLONOSCOPY SHOWED:? STOMACH: Mild gastric erythema with edematous folds with aphthoid ulcers in the ? antrum. Biopsies were obtained. Grade 1 flap valve on retroflexed examination of the cardia. ? DUODENUM: Duodenitis with multiple 5-6 mm ulcers in the bulb - biopsied. A ? few 4-5 mm ulcers in the 2nd/3rd part of the duodenum - biopsies were obtained ? Colonoscopy Findings: ? Terminal Ileum Distal 7-8 cms was examined and showed cobblestoning with ? chronic appearing serpiginous ulcers with white exudates - biopsies were ? obtained for histology and viral cultures. ? Ulcerated ICV. A few 4-5 mm pseudopolyps in the right colon. ? Moderate diverticulosis seen in the sigmoid colon ? Moderate internal hemorrhoids, perianal skin tags with ulceration in the anal ? canal consistent with active etienne-anal Crohn's disease. ? Plan: ? I will discuss switching from Remicade to Humira with the patient at his FU visit. ? Patient has an appointment on 11/10/19 in the GI Clinic with Fuentes Burton M.D.- ? Repeat Colonoscopy interval based on path results - in 2- 3 years for surveillance biopsies. ? Biopsies showed: ? A. Small bowel, biopsies: Acute duodenitis; negative for dysplasia/malignancy. ? B. Stomach, bulb, biopsies: Marked active gastritis; negative for Helicobacter; ? negative for granulomas; negative for dysplasia/malignancy. ? C. Stomach, antrum, biopsies: Marked active gastritis; negative for Helicobacter; ? negative for granulomas; negative for dysplasia/malignancy. ? D. Terminal ileum, biopsies: Chronic, severe active ileitis; negative for granulomas; negative for dysplasia/malignancy. ? E. Ileocecal valve, biopsies: Severe active, chronic colitis; negative for granulomas; ? negative for dysplasia/malignancy. F. Colon, right, biopsies: Colonic mucosa within normal limits; no active ? inflammation; negative for granulomas; negative for dysplasia/malignancy. ? G. Colon, left, biopsies: Colonic mucosa within normal limits; no active inflammation; ? negative for granulomas; negative for dysplasia/malignancy. ? 8. Rectum, biopsies: Colonic mucosa within normal limits; no active in flammation; ? negative for granulomas; negative for dysplasia/malignancy ?IBD SUMMARY ? Year of diagnosis: 02/2014 - presented with diarrhea, abd pain, bloody stools and fatigue, weight loss from 230 to 170 lbs. ? Extent of disease: Small intestine and ? Colon. EGD and colonoscopy showed duodenitis, gastritis diffuse inflammation of the ileum and colon ? PREVIOUS ENDOSCOPIES: 10/2019 EGD showed gastritis and duodenitis. Same-day colonoscopy showed: Cobblestoning with chronic appearing serpiginous ulcers in TI with white exudates, ulcerated ICV. A few 4-5 mm pseudopolyps in the right colon and moderate sigmoid diverticulosis. Moderate internal hemorrhoids, perianal skin tags with ulceration in the anal canal consistent with active etienne-anal Crohn's disease. Biopsies were negative for CMV and HSV and showed chronic inflammation. 03/05 EGD AND COLON- diffuse inflammation of the ileum, colon , duodenitis and gastritis? 01/06 Colonoscopy - mild to moderate inflammation? 01/07 COLONOSCOPY SHOWED ulceration the terminal ileum, pseudopolyps in the ascending colon, normal mucosa in the whole colon, internal hemorrhoids. Digital rectal examination was abnormal with skin tags and no fistula. Biopsy showed active ileitis, severe with ulceration of the terminal ileum and active mild focal colitis in the right and left colon. No granulomas or dysplasia was seen. ? Last Colonoscopy: ? October 2018 - a little bit of inflammation and treated with steroids and increased dose of Remicade 10 mg/kg every 4 weeks. ? NEXT COLONOSCOPY DUE: in 2-3 yrs ? PAST SURGERY: NONE ? PAST TREATMENTS: Methotrexate, Steroids, and then Remicade, Budesonide 01/2017 - stopped after 1 month. (PT DOES NOT LIKE TAKING PILLS) ? CURRENT TREATMENT: Humira every week and MTX. ? ASSOCIATED DIAGNOSIS: Perianal fistula, denies EIM ? IMMUNIZATIONS: Gets a flu shot every year. Pneumococcal 23 vaccination and Pneumovax were completed in September 2017. ? LAST PPD/TB TEST: Aug 2019 NEGATIVE ?TODAY'S VISIT: Patient follow up for CT/ED abnormal result Patient cc: Nauseas on and off, abdominal pain/bloating, and constipation. Complains of intermittent LUQ abd pain - comes and goes Can feel like a sharp pain and resolves after 1-2 minutes. Denies association with eating. Can happen randomly while he is watching TV. Can have 5 or more BMs a day Notes blood in the stool when he gets abdominal cramps Denies nocturnal diarrhea Had eye symptoms 3 weeks ago which resolved after he used steroid drops PAST VISIT: Requesting a refill for Vitamin D Denies abdominal pain or diarrhea. Has 3-4 BMs a days and sometimes upto 5. Feels well with improved energy levels He was having some eye problems and referred to the Eye Doctor He was told Crohn's disease was affecting his eyes (? Uveitis) and prescribed some eye drops Eye is better now. Mon and and increase to 4 and 5 on and Wednesday. Takes injection in the morning and if he forgets then 5 pm in the evening Taking Humira every Wednesday. Diarrhea comes and goes _ nothing crazy Can have 4-5 BMs a day - sometimes with blood. Notes abdominal cramping 1-2 days before next Humira injection Taking Vitamin D intermittently. Has a BM 3 times a day - vary between soft and solid. Notes some blood once in a while. Denies?any symptoms of recurrent perianal fistula. Pt has gained 14 lbs over the past 4 months. I am doing really good Humira is doing its job. No abdominal pain or bloody stools. Eye problem has resolved. ? Pt states that he has been doing really good! no GI sx. ? Notes resolution of abdominal cramps and rectal bleeding. ? Has 4 normal BMs a day. ? Taking Humira every week and is taking azathioprine. ? Feels Humira is helping. ? Wt is stable at 190- 200 lbs. Saw the ophalmologist - felt he had sand in his eyes - prescribed eye drops with resolution of symptomS [facility] Medical History Nonimmune to hepatitis B virus Hepatitis A immune Crohn's disease Surgical History Hx of colonoscopy (10/27/19) Hx of esophagogastroduodenoscopy (10/27/19) History of ankle surgery (~02/2017) Hx of tonsillectomy Social History Household Members: Family Alcohol intake: current Alcohol intake frequency: does not drink Patient Tobacco Use Status: Never used Tobacco Substance Use Type: IV Drugs Current occupation: Works at [employer] Assessment & Plan Assessment & Plan (1) Crohn's disease of both small and large intestine with rectal bleeding: Code(s): K50.811 - Crohn's disease of both small and large intestine with rectal bleeding Category: Medical (2) Perianal fistula: Code(s): K60.3 - Anal fistula Category: Medical (3) Iron deficiency anemia: Code(s): D50.9 - Iron deficiency anemia, unspecified Category: Medical Plan 28 YM with PERIANAL FISTULA, CROHN'S DISEASE OF BOTH SMALL AND LARGE INTESTINE WITH RECTAL BLEEDING, IMMUNOSUPPRESSED STATUS, HIGH BMI, HEP A IMMUNE, HEP B NON- IMMUNE followed in GI for Crohn's Disease involving small and large intestine.. Pt was being treated with Remicade 10 mg/kg every 4 weeks and noted breakthrough symptoms 3 weeks after Remicade infusion. 11/09 EGD showed gastritis and duodenitis. Same-day colonoscopy showed:? Cobblestoning with chronic appearing serpiginous ulcers in TI with white exudates, ulcerated ICV. A few 4-5 mm pseudopolyps in the right colon and moderate sigmoid diverticulosis. Moderate internal hemorrhoids, perianal skin tags with ulceration in the anal canal consistent with active etienne-anal Crohn's disease. Biopsies were negative for CMV and HSV and showed chronic inflammation. 12/20/19 MR enterography showed nonobstructive active inflammation involving distal 15 cm ileum. No proximal obstruction, visible cobblestoning, fistula, or fluid collection. Patient was started on Humira on 12/12/19 and dose of Humira was increased to 40 mg every week on 06/21/20 with significant? improvement in his symptoms. Patient was advised to continue Humira 40 mg every week and continue azathiopr ine 50 mg daily. 10/2022 EGD and Colonoscopy were performed and results as noted. Pt started on azathioprine 50 mg daily due to low adalumimab levels. On 04/01/23 @ 17:31 Fuentes Burton Wrote To Fuentes Burton Pt called and lab results reviewed with him - showed persistent anemia and elevated CRP. Advised to increase Azathioprine to 100 mg daily - new prescription sent 04/30/23 Obtain records from Eye doctors regarding ? Uveitis 01/10/24 Pt started on methotrexate 15 mg subcutaneously every week Follow-up in 4 months with repeat lab Coding Diagnoses Crohn's disease of both small and large intestine with rectal bleeding K50.811 Perianal fistula K60.3 Iron deficiency anemia D50.9
[2024-04-07 09:59] VITALS: BP 119/62; PULSE 81; BMI 28.8
== END 2024-04-07 10:48 | disposition home or self-care (01) ==
PROVIDERS: Visit Provider Internal Medicine Gastroenterology
DX: D50.9 Iron deficiency anemia, unspecified (principal); K60.3 Anal fistula; K50.811 Crohn's disease of both small and large intestine with rectal bleeding
CPT/HCPCS: 99214

== ENCOUNTER 2024-04-07 09:52 | Outpatient (REF) | payer OTHER, SELFPAY ==
[2024-04-07 11:14] LABS: MANUAL DIFF FLAG NO
[2024-04-07 11:49] LABS: Basophils Absolute Auto 0.1 X10*3/uL (0.0-0.2); Eosinophils Absolute Auto 0.3 X10*3/uL (0.0-0.4); Eosinophils Percent Auto 3.6 % (0-4); Hemoglobin 9.9 g/dl (14.0-18.0); Imm Gran Abs Auto 0.02 X10*3/uL (0.00-0.03); Imm Gran Pct Auto 0.3 % (0.0-0.4); Lymphocytes Absolute Auto 1.3 X10*3/uL (1.2-4.9); Lymphocytes Percent Auto 18.6 % (20-40); Mean Corpuscular HGB Conc 29.1 g/dl (31.0-36.0); Mean Corpuscular Hemoglobin 20.2 pg (27.0-33.0); Mean Corpuscular Volume 69.4 fL (80.0-98.0); Mean Platelet Volume 8.3 fL (9.4-12.4); Monocytes Absolute Auto 1.1 X10*3/uL (0.1-1.2); Monocytes Percent Auto 16.3 % (2-11); Neutrophils Absolute Auto 4.2 x10*3/uL (2.0-8.3); Neutrophils Percent Auto 60.2 % (45-73); Platelet Count 548 X10*3/uL (160-400); Red Cell Distribution Width 21.2 % (11.0-16.0)
[2024-04-07 12:20] LABS: Alanine Aminotransferase 12 U/L (0-40); Albumin Level 3.4 g/dL (3.5-5.0); Alkaline Phosphatase 62 U/L (39-117); Anion Gap 10 (12-20); Aspartate Amino Transferase 12 U/L (5-37); Bilirubin Total 0.2 mg/dL (0.0-1.0); Blood Urea Nitrogen 11 mg/dL (9-16); Calcium 9.2 mg/dL (8.4-10.2); Carbon Dioxide 29 mmol/L (22-29); Chloride 107 mmol/L (96-108); Estimated Glomerular Filt Rate > 60; Glucose Random 92 mg/dL (60-115); Potassium 4.1 mmol/L (3.3-5.1); Sodium 142 mmol/L (135-145); Total Protein 7.7 g/dL (6.5-8.0)
[2024-04-07 12:34] LABS: Vitamin D 25-OH Total 30.3 ng/mL (>30)
[2024-04-09 22:09] LABS: TS Negative Control Passed; TS Panel A 0; TS Panel B 1; TS Positive Control Passed; TSpotTB Negative (Negative)
== END 2024-04-07 09:53 | disposition home or self-care (01) ==
LOC: HO.LAB 09:52
PROVIDERS: Visit Provider Internal Medicine Gastroenterology
DX: K50.811 Crohn's disease of both small and large intestine with rectal bleeding (principal)
CPT/HCPCS: 36415; 80053; 82306; 85025; 86481

== ENCOUNTER 2024-05-19 07:25 | Outpatient (AMB) | payer OTHER, SELFPAY ==
--- NOTE | 2024-05-19 07:27 | MHC.OFFVIS ---
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 Accompanied by: Self / Same As Patient Allergies ampicillin [AMPICILLIN] Allergy (Mild, Verified 05/19/24 07:26) SWELLING, anaphylaxis Medication List - Last Reconciled 05/19/24 by Fuentes Burton MD adalimumab (Humira(CF) Pen) 80 mg (0.8 mL) subcut QWEEK 4 weeks albuterol sulfate 90 mcg/actuation 1 inh inhalation QID PRN cholecalciferol (vitamin D3) 250 mcg PO 2XW 90 days ferrous sulfate 325 mg PO BID 50 days ibuprofen 400 mg PO Q6H PRN methotrexate (PF) 15 mg (0.4 mL) subcut QWEEK 4 weeks mupirocin 2% 1 appl topical TID HPI HPI 6 week FU of Crohn's disease: Details: GI CLINIC VISIT FOR THIS 28-YEAR-OLD MALE FOLLOWED IN GI FOR 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 Patient was on Remicade for 6 yrs with breakthrough symptoms. Patient was started on Humira on 12/12/19 and dose of Humira was increased to 40 mg every week on 06/21/20 with significant? improvement in his symptoms. Humira increased to 80 mg every week due to sub-therapeutic levels CHRONIC ILLNESSES:?PERIANAL FISTULA, CROHN'S DISEASE OF BOTH SMALL AND LARGE INTESTINE WITH RECTAL BLEEDING, IMMUNOSUPPRESSED STATUS, HIGH BMI, HEP A IMMUNE, HEP B NON- IMMUNE ?TODAY'S VISIT: Finished prednisone 2 weeks and abdominal pain has resolved. Increased dose of Humira to 80 mg every week on 05/11/24 Having 4-5 BMs a day Notes eye symptoms have improved Increased allergy symptoms - sneezing Continues to have 8-9/10 RLQ pain - comes and goes Feels uncomfortable - denies change in Abd pain after eating. Has 4-5 BM/day begining of the week. Has 7-8 BM per day on as Humira starts wearing off Takes Humira every Wednesday. Takes MTX 15 mg every Wednesday and advised to change to Wednesday Recurrent eye problems last month - using eye drops and scheduled to see the eye doctor next week ?IBD SUMMARY ? Year of diagnosis: 02/2014 - presented with diarrhea, abd pain, bloody stools and fatigue, weight loss from 230 to 170 lbs. ? Extent of disease: Small intestine and ? Colon. EGD and colonoscopy showed duodenitis, gastritis diffuse inflammation of the ileum and colon ? PREVIOUS ENDOSCOPIES: 10/2022 EGD and colon were performed 10/2019 EGD showed gastritis and duodenitis. Same-day colonoscopy showed: Cobblestoning with chronic appearing serpiginous ulcers in TI with white exudates, ulcerated ICV. A few 4-5 mm pseudopolyps in the right colon and moderate sigmoid diverticulosis. Moderate internal hemorrhoids, perianal skin tags with ulceration in the anal canal consistent with active etienne-anal Crohn's disease. Biopsies were negative for CMV and HSV and showed chronic inflammation. 03/05 EGD AND COLON- diffuse inflammation of the ileum, colon , duodenitis and gastritis? 01/06 Colonoscopy - mild to moderate inflammation? 01/07 COLONOSCOPY SHOWED ulceration the terminal ileum, pseudopolyps in the ascending colon, normal mucosa in the whole colon, internal hemorrhoids. Digital rectal examination was abnormal with skin tags and no fistula. Biopsy showed active ileitis, severe with ulceration of the terminal ileum and active mild focal colitis in the right and left colon. No granulomas or dysplasia was seen. ? Last Colonoscopy: ? October 2018 - a little bit of inflammation and treated with steroids and increased dose of Remicade 10 mg/kg every 4 weeks. ? NEXT COLONOSCOPY DUE: in 2-3 yrs ? PAST SURGERY: NONE ? PAST TREATMENTS: Methotrexate, Steroids, and then Remicade, Budesonide 01/2017 - stopped after 1 month. (PT DOES NOT LIKE TAKING PILLS) ? CURRENT TREATMENT: Humira every week and MTX 15 mg once weekly. ? ASSOCIATED DIAGNOSIS: Perianal fistula, Eye problems ? IMMUNIZATIONS: Gets a flu shot every year. Pneumococcal 23 vaccination and Pneumovax were completed in September 2017. ? LAST PPD/TB TEST: [facility] 20[facility] Reviewed 12/13/19 normal CBC with H&H of 12.5 and 37.9 with microcytosis and hypochromia, ? ESR 31, CRP 6.94, vitamin-D 14.4 , T spot was negative ? Stool cold calprotectin was elevated at 1796.5 IMAGING STUDIES: 04/04/[address] SCAN SHOWED: Thickening of the distal small bowel/terminal ileum extending to the cecum with infiltrative change in the right lower quadrant. The appendix is not identified separate structure. Findings consistent with terminal ileitis and cecal colitis. Inflammatory bowel disease is a consideration. Other considerations would include inflammatory bowel disease. Appendicitis cannot entirely excluded. 12/20/19 MR ENTEROGRAPHY SHOWED: ? IMPRESSION: ? Nonobstructive active inflammation involving distal 15 cm ileum. No proximal obstruction, visible cobblestoning, fistula, or fluid collection. ?ENDOSCOPIC STUDIES: 10/29/22 EGD AND COLON SHOWED: Endoscopy Findings: STOMACH: Gastritis DUODENUM: Three 4-5 mm chronic appearing healing ulcers in the descending duodenum - biopsied Colonoscopy Findings: No polyps were detected Active right sided colitis due to Crohn's disease (Cecum, ICV and AC). Patchy erythema with friable appearing mucosa without ulcers in the transverse and left colon. Active etienne-anal Crohn's disease Moderate diverticulosis seen in the sigmoid colon Plan: Repeat Colonoscopy interval based on path results - in 1- 2 years for FU of Crohn's disease 10/27/2019 EGD AND COLONOSCOPY SHOWED:? STOMACH: Mild gastric erythema with edematous folds with aphthoid ulcers in the ? antrum. Biopsies were obtained. Grade 1 flap valve on retroflexed examination of the cardia. ? DUODENUM: Duodenitis with multiple 5-6 mm ulcers in the bulb - biopsied. A ? few 4-5 mm ulcers in the 2nd/3rd part of the duodenum - biopsies were obtained ? Colonoscopy Findings: ? Terminal Ileum Distal 7-8 cms was examined and showed cobblestoning with ? chronic appearing serpiginous ulcers with white exudates - biopsies were ? obtained for histology and viral cultures. ? Ulcerated ICV. A few 4-5 mm pseudopolyps in the right colon. ? Moderate diverticulosis seen in the sigmoid colon ? Moderate internal hemorrhoids, perianal skin tags with ulceration in the anal ? canal consistent with active etienne-anal Crohn's disease. ? Plan: ? I will discuss switching from Remicade to Humira with the patient at his FU visit. ? Patient has an appointment on 11/10/19 in the GI Clinic with Fuentes Burton M.D.- ? Repeat Colonoscopy interval based on path results - in 2- 3 years for surveillance biopsies. ? Biopsies showed: ? A. Small bowel, biopsies: Acute duodenitis; negative for dysplasia/malignancy. ? B. Stomach, bulb, biopsies: Marked active gastritis; negative for Helicobacter; ? negative for granulomas; negative for dysplasia/malignancy. ? C. Stomach, antrum, biopsies: Marked active gastritis; negative for Helicobacter; ? negative for granulomas; negative for dysplasia/malignancy. ? D. Terminal ileum, biopsies: Chronic, severe active ileitis; negative for granulomas; negative for dysplasia/malignancy. ? E. Ileocecal valve, biopsies: Severe active, chronic colitis; negative for granulomas; ? negative for dysplasia/malignancy. F. Colon, right, biopsies: Colonic mucosa within normal limits; no active ? inflammation; negative for granulomas; negative for dysplasia/malignancy. ? G. Colon, left, biopsies: Colonic mucosa within normal limits; no active inflammation; ? negative for granulomas; negative for dysplasia/malignancy. ? 8. Rectum, biopsies: Colonic mucosa within normal limits; no active inflammation; ? negative for granulomas; negative for dysplasia/malignancy ? PAST VISIT: Complains of intermittent LUQ abd pain - comes and goes Can feel like a sharp pain and resolves after 1-2 minutes. Denies association with eating. Can happen randomly while he is watching TV. Can have 5 or more BMs a day Notes blood in the stool when he gets abdominal cramps Denies nocturnal diarrhea Had eye symptoms 3 weeks ago which resolved after he used steroid drops Requesting a refill for Vitamin D Denies abdominal pain or diarrhea. Has 3-4 BMs a days and sometimes upto 5. Feels well with improved energy levels He was having some eye problems and referred to the Eye Doctor He was told Crohn's disease was affecting his eyes (? Uveitis) and prescribed some eye drops Eye is better now. Mon and Tu and increase to 4 and 5 on and Wednesday. Takes injection in the morning and if he forgets then 5 pm in the evening Taking Humira every Wednesday. Diarrhea comes and goes _ nothing crazy Can have 4-5 BMs a day - sometimes with blood. Notes abdominal cramping 1-2 days before next Humira injection Taking Vitamin D intermittently. Has a BM 3 times a day - vary between soft and solid. Notes some blood once in a while. Denies?any symptoms of recurrent perianal fistula. Pt has gained 14 lbs over the past 4 months. I am doing really good Humira is doing its job. No abdominal pain or bloody stools. Eye problem has resolved. ? Pt states that he has been doing really good! no GI sx. ? Notes resolution of abdominal cramps and rectal bleeding. ? Has 4 normal BMs a day. ? Taking Humira every week and is taking azathioprine. ? Feels Humira is helping. ? Wt is stable at 190- 200 lbs. Saw the ophalmologist - felt he had sand in his eyes - prescribed eye drops with resolution of [facility] History Nonimmune to hepatitis B virus Hepatitis A immune Crohn's disease Surgical History Hx of colonoscopy (10/27/19) Hx of esophagogastroduodenoscopy (10/27/19) History of ankle surgery (~02/2017) Hx of tonsillectomy Social History Household Members: Family Alcohol intake: current Alcohol intake frequency: does not drink Patient Tobacco Use Status: Never used Tobacco Substance Use Type: IV Drugs Current occupation: Works at [employer] Review of Systems Const All systems reviewed & are unremarkable except as noted in HPI and below Physical Exam Vital Signs: Last Vital Signs Pulse 84 05/19/24 07:29 BP 113/70 05/19/24 07:29 BMI result Body Mass Index 28.4 Const General: healthy appearing and no acute distress Nutritional Appearance: obese Orientation/consciousness: patient oriented x3 Limitations: no limitations HEENT Head: Yes normal to inspection Ears: hearing grossly normal bilaterally Mouth: Normal oral and palatal mucosa present Eyes Sclerae: sclerae normal Pupils: Equal, round and reactive pupils present Neck Neck: Yes normal visual inspection Chest Chest palpation & inspection: normal inspection of the chest Resp Effort & Inspection: normal respiratory effort Auscultation: clear to auscultation bilaterally Cardio Palpation: normal PMI Rate: regular rate Rhythm: regular rhythm Heart sounds: S1 normal heart sound present, S2 normal heart sound present and no murmurs GI Palpation (GI): Soft to palpation, Tenderness to palpation present (GI) (Minimal RLQ tenderness) and No hepatosplenomegaly present Auscultation: normal bowel sounds Rectal Exam - Male: Yes deferred Skin General skin exam: no rashes or lesions noted Neuro General: patient oriented x3, gait normal and moves all extremities Cranial nerves: Yes Equal, round and reactive pupils present Psych Appearance: grossly normal Mental Status: mental status grossly normal Assessment & Plan Assessment & Plan (1) Crohn's disease of both small and large intestine with rectal bleeding: Code(s): K50.811 - Crohn's disease of both small and large intestine with rectal bleeding Category: Medical (2) Perianal fistula: Code(s): K60.3 - Anal fistula Category: Medical (3) Iron deficiency anemia: Code(s): D50.9 - Iron deficiency anemia, unspecified Category: Medical Plan 28 YM with PERIANAL FISTULA, CROHN'S DISEASE OF BOTH SMALL AND LARGE INTESTINE WITH RECTAL BLEEDING, IMMUNOSUPPRESSED STATUS, HIGH BMI, HEP A IMMUNE, HEP B NON- IMMUNE followed in GI for Crohn's Disease involving small and large intestine.. Pt was being treated with Remicade 10 mg/kg every 4 weeks and noted breakthrough symptoms 3 weeks after Remicade infusion. 11/09 EGD showed gastritis and duodenitis. Same-day colonoscopy showed:? Cobblestoning with chronic appearing serpiginous ulcers in TI with white exudates, ulcerated ICV. A few 4-5 mm pseudopolyps in the right colon and moderate sigmoid diverticulosis. Moderate internal hemorrhoids, perianal skin tags with ulceration in the anal canal consistent with active etienne-anal Crohn's disease. Biopsies were negative for CMV and HSV and showed chronic inflammation. 12/20/19 MR enterography showed nonobstructive active inflammation involving distal 15 cm ileum. No proximal obstruction, visible cobblestoning, fistula, or fluid collection. Patient was started on Humira on 12/12/19 and dose of Humira was increased to 40 mg every week on 06/21/20 with significant? improvement in his symptoms. Patient was advised to continue Humira 40 mg every week and continue azathioprine 50 mg daily. 10/2022 EGD and Colonoscopy were performed and results as noted. Pt started on azathioprine 50 mg daily due to low adalumimab levels. 01/14/23 Pt advised to have labs checked today. If labs are normal, I will increase azathioprine to 100 mg daily. 01/10/24 Pt started on MTX 15 mg every week and azathioprine was discontinued 04/07/24 Pt seen in the ED on 04/04/[address] findings as noted above Pt advised repeat labs and start prednisone taper over 4 weeks 04/21/24 Labs reviewed with the patient. Advised to increase Humira to 80 mg every week Dated prescriptions sent. 05/19/24 Humira increased to 80 mg every week on 05/11/24 Continue MTX 15 mg SQ every week and add folic acid Check labs in 3 weeks Follow-up in 3 months Orders: Orders C Reactive Protein Today D50.9 - Iron deficiency anemia, unspecified, K50.811 - Crohn's disease of both small and large intestine with rectal bleeding Complete Blood Count Auto Diff Today D50.9 - Iron deficiency anemia, unspecified, K50.811 - Crohn's disease of both small and large intestine with rectal bleeding Hepatitis B Surface Antibody Today K50.811 - Crohn's disease of both small and large intestine with rectal bleeding Comprehensive Met. Panel Today K50.811 - Crohn's disease of both small and large intestine with rectal bleeding Medications: New folic acid 1 mg PO DAILY 90 days 90 tabs 1RF K50.811 - Crohn's disease of both small and large intestine with rectal bleeding Coding Level of Care Code Est Pt Level 3 (30220) Diagnoses Crohn's disease of both small and large intestine with rectal bleeding K50.811 Perianal fistula K60.3 Iron deficiency anemia D50.9 Time Spent (min) 18
[2024-05-19 07:29] VITALS: BP 113/70; PULSE 84; BMI 28.4
== END 2024-05-19 16:59 | disposition home or self-care (01) ==
PROVIDERS: Visit Provider Internal Medicine Gastroenterology
DX: K50.811 Crohn's disease of both small and large intestine with rectal bleeding (principal); K60.3 Anal fistula; D50.9 Iron deficiency anemia, unspecified
CPT/HCPCS: 99213

== ENCOUNTER → 2024-05-19 07:25 | Outpatient (BNVA) | payer OTHER, SELFPAY | PROVIDERS: Visit Provider Internal Medicine Gastroenterology ==

== ENCOUNTER 2024-08-11 07:28 | Outpatient (AMB) | payer OTHER, SELFPAY ==
--- NOTE | 2024-08-11 07:37 | MHC.OFFVIS ---
Vital Signs 08/11/24 07:53 Height 5 ft 9 in Weight 185 lb BMI 27.3 BP 165/75 H Blood Pressure Location Lt brachial Position Sitting Pulse 104 H Intake Visit Reasons: Crohns disease Intake Note: Patient follow up for Crohns disease and lab results. Patient cc: abdominal pain on and off, patient is taking his Iron medication twice a week due constipation. 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 Associate Required: No Accompanied by: Self / Same As Patient Allergies ampicillin [AMPICILLIN] Allergy (Mild, Verified 08/11/24 07:42) SWELLING, anaphylaxis Medication List - Last Reconciled 08/11/24 by Fuentes Burton MD adalimumab (Humira(CF) Pen) 80 mg (0.8 mL) subcut QWEEK 4 weeks albuterol sulfate 90 mcg/actuation 1 inh inhalation QID PRN cholecalciferol (vitamin D3) 250 mcg PO 2XW 90 days ferrous sulfate 325 mg PO BID 50 days folic acid 1 mg PO DAILY 90 days ibuprofen 400 mg PO Q6H PRN methotrexate (PF) 15 mg (0.4 mL) subcut QWEEK 4 weeks mupirocin 2% 1 appl topical TID HPI HPI Crohns disease: Details: GI CLINIC VISIT FOR THIS 29-YEAR-OLD MALE FOLLOWED IN GI FOR 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 Patient was on Remicade for 6 yrs with breakthrough symptoms. Patient was started on Humira on 12/12/19 and dose of Humira was increased to 40 mg every week on 06/21/20 with significant? improvement in his symptoms. 01/10/24 Pt started on MTX 15 mg every week and azathioprine was discontinued 04/21/24 Humira increased to 80 mg every week due to sub-therapeutic levels CHRONIC ILLNESSES:?PERIANAL FISTULA, CROHN'S DISEASE OF BOTH SMALL AND LARGE INTESTINE WITH RECTAL BLEEDING, IMMUNOSUPPRESSED STATUS, HIGH BMI, HEP A IMMUNE, HEP B NON- IMMUNE ?TODAY'S VISIT: Complains of intermittent periumblical pain Tolerating Humira and MTX. Having 4-5 non bloody BMs a day. Intermittent drainage from the fistula without rectal pain Complains of joint pains Denies eye problems PAST VISITS: Finished prednisone 2 weeks and abdominal pain has resolved. Increased dose of Humira to 80 mg every week on 05/11/24 Having 4-5 BMs a day Notes eye symptoms have improved Increased allergy symptoms - sneezing Continues to have 8-05/02 RLQ pain - comes and goes Feels uncomfortable - denies change in Abd pain after eating. Has 4-5 BM/day begining of the week. Has 7-8 BM per day on as Humira starts wearing off Takes Humira every Wednesday. Takes MTX 15 mg every Wednesday and advised to change to Wednesday Recurrent eye problems last month - using eye drops and scheduled to see the eye doctor next week ?IBD SUMMARY ? Year of diagnosis: 02/2014 - presented with diarrhea, abd pain, bloody stools and fatigue, weight loss from 230 to 170 lbs. ? Extent of disease: Small intestine and ? Colon. EGD and colonoscopy showed duodenitis, gastritis diffuse inflammation of the ileum and colon ? PREVIOUS ENDOSCOPIES: 10/2022 EGD and colon were performed 10/2019 EGD showed gastritis and duodenitis. Same-day colonoscopy showed: Cobblestoning with chronic appearing serpiginous ulcers in TI with white exudates, ulcerated ICV. A few 4-5 mm pseudopolyps in the right colon and moderate sigmoid diverticulosis. Moderate internal hemorrhoids, perianal skin tags with ulceration in the anal canal consistent with active etienne-anal Crohn's disease. Biopsies were negative for CMV and HSV and showed chronic inflammation. 03/05 EGD AND COLON- diffuse inflammation of the ileum, colon , duodenitis and gastritis? 01/06 Colonoscopy - mild to moderate inflammation? 01/07 COLONOSCOPY SHOWED ulceration the terminal ileum, pseudopolyps in the ascending colon, normal mucosa in the whole colon, internal hemorrhoids. Digital rectal examination was abnormal with skin tags and no fistula. Biopsy showed active ileitis, severe with ulceration of the terminal ileum and active mild focal colitis in the right and left colon. No granulomas or dysplasia was seen. ? Last Colonoscopy: ? October 2018 - a little bit of inflammation and treated with steroids and increased dose of Remicade 10 mg/kg every 4 weeks. ? NEXT COLONOSCOPY DUE: in 2-3 yrs ? PAST SURGERY: NONE ? PAST TREATMENTS: Methotrexate, Steroids, and then Remicade, Budesonide 01/2017 - stopped after 1 month. (PT DOES NOT LIKE TAKING PILLS) ? CURRENT TREATMENT: Humira every week and MTX 15 mg once weekly. ? ASSOCIATED DIAGNOSIS: Perianal fistula, Eye problems ? IMMUNIZATIONS: Gets a flu shot every year. Pneumococcal 23 vaccination and Pneumovax were completed in September 2017. ? LAST PPD[facility]TB TEST: [facility]19 normal CBC with H&H of 12.5 and 37.9 with microcytosis and hypochromia, ? ESR 31, CRP 6.94, vitamin-D 14.4 , T spot was negative ? Stool cold calprotectin was elevated at 1796.5 IMAGING STUDIES: 04/04/[address] SCAN SHOWED: Thickening of the distal small bowel/terminal ileum extending to the cecum with infiltrative change in the right lower quadrant. The appendix is not identified separate structure. Findings consistent with terminal ileitis and cecal colitis. Inflammatory bowel disease is a consideration. Other considerations would include inflammatory bowel disease. Appendicitis cannot entirely excluded. 12/20/19 MR ENTEROGRAPHY SHOWED: ? IMPRESSION: ? Nonobstructive active inflammation involving distal 15 cm ileum. No proximal obstruction, visible cobblestoning, fistula, or fluid collection. ?ENDOSCOPIC STUDIES: 10/29/22 EGD AND COLON SHOWED: Endoscopy Findings: STOMACH: Gastritis DUODENUM: Three 4-5 mm chronic appearing healing ulcers in the descending duodenum - biopsied Colonoscopy Findings: No polyps were detected Active right sided colitis due to Crohn's disease (Cecum, ICV and AC). Patchy erythema with friable appearing mucosa without ulcers in the transverse and left colon. Active etienne-anal Crohn's disease Moderate diverticulosis seen in the sigmoid colon Plan: Repeat Colonoscopy interval based on path results - in 1- 2 years for FU of Crohn's disease 10/27/2019 EGD AND COLONOSCOPY SHOWED:? STOMACH: Mild gastric erythema with edematous folds with aphthoid ulcers in the ? antrum. Biopsies were obtained. Grade 1 flap valve on retroflexed examination of the cardia. ? DUODENUM: Duodenitis with multiple 5-6 mm ulcers in the bulb - biopsied. A ? few 4-5 mm ulcers in the 2nd/3rd part of the duodenum - biopsies were obtained ? Colonoscopy Findings: ? Terminal Ileum Distal 7-8 cms was examined and showed cobblestoning with ? chronic appearing serpiginous ulcers with white exudates - biopsies were ? obtained for histology and viral cultures. ? Ulcerated ICV. A few 4-5 mm pseudopolyps in the right colon. ? Moderate diverticulosis seen in the sigmoid colon ? Moderate internal hemorrhoids, perianal skin tags with ulceration in the anal ? canal consistent with active etienne-anal Crohn's disease. ? Plan: ? I will discuss switching from Remicade to Humira with the patient at his FU visit. ? Patient has an appointment on 11/10/19 in the GI Clinic with Fuentes Burton M.D.- ? Repeat Colonoscopy interval based on path results - in 2- 3 years for surveillance biopsies. ? Biopsies showed: ? A. Small bowel, biopsies: Acute duodenitis; negative for dysplasia/malignancy. ? B. Stomach, bulb, biopsies: Marked active gastritis; negative for Helicobacter; ? negative for granulomas; negative for dysplasia/malignancy. ? C. Stomach, antrum, biopsies: Marked active gastritis; negative for Helicobacter; ? negative for granulomas; negative for dysplasia/malignancy. ? D. Terminal ileum, biopsies: Chronic, severe active ileitis; negative for granulomas; negative for dysplasia/malignancy. ? E. Ileocecal valve, biopsies: Severe active, chronic colitis; negative for granulomas; ? negative for dysplasia/malignancy. F. Colon, right, biopsies: Colonic mucosa within normal limits; no active ? inflammation; negative for granulomas; negative for dysplasia/malignancy. ? G. Colon, left, biopsies: Colonic mucosa within normal limits; no active inflammation; ? negative for granulomas; negative for dysplasia/malignancy. ? 8. Rectum, biopsies: Colonic mucosa within normal limits; no active inflammation; ? negative for granulomas; negative for dysplasia/malignancy ? PAST VISIT: Complains of intermittent LUQ abd pain - comes and goes Can feel like a sharp pain and resolves after 1-2 minutes. Denies association with eating. Can happen randomly while he is watching TV. Can have 5 or more BMs a day Notes blood in the stool when he gets abdominal cramps Denies nocturnal diarrhea Had eye symptoms 3 weeks ago which resolved after he used steroid drops Requesting a refill for Vitamin D Denies abdominal pain or diarrhea. Has 3-4 BMs a days and sometimes upto 5. Feels well with improved energy levels He was having some eye problems and referred to the Eye Doctor He was told Crohn's disease was affecting his eyes (? Uveitis) and prescribed some eye drops Eye is better now. Mon and and increase to 4 and 5 on and Wednesday. Takes injection in the morning and if he forgets then 5 pm in the evening Taking Humira every Wednesday. Diarrhea comes and goes _ nothing crazy Can have 4-5 BMs a day - sometimes with blood. Notes abdominal cramping 1-2 days before next Humira injection Taking Vitamin D intermittently. Has a BM 3 times a day - vary between soft and solid. Notes some blood once in a while. Denies?any symptoms of recurrent perianal fistula. Pt has gained 14 lbs over the past 4 months. I am doing really good [employer] is doing its job. No abdominal pain or bloody stools. Eye problem has resolved. ? Pt states that he has been doing really good! no GI sx. ? Notes resolution of abdominal cramps and rectal bleeding. ? Has 4 normal BMs a day. ? Taking Humira every week and is taking azathioprine. ? Feels Humira is helping. ? Wt is stable at 190- 200 lbs. Saw the ophalmologist - felt he had sand in his eyes - prescribed eye drops with resolution of symptoms [facility] Medical History Nonimmune to hepatitis B virus Hepatitis A immune Crohn's disease Surgical History Hx of colonoscopy (10/27/19) Hx of esophagogastroduodenoscopy (10/27/19) History of ankle surgery (~02/2017) Hx of tonsillectomy Social History Household Members: Family Alcohol intake: current Alcohol intake frequency: does not drink Patient Tobacco Use Status: Never used Tobacco Substance Use Type: IV Drugs Current occupation: Works at [employer] Review of Systems Const All systems reviewed & are unremarkable except as noted in HPI and below Physical Exam Const General: healthy appearing and no acute distress Nutritional Appearance: obese Orientation/consciousness: patient oriented x3 Limitations: no limitations HEENT Head: Yes normal to inspection Ears: hearing grossly normal bilaterally Mouth: Normal oral and palatal mucosa present Eyes Sclerae: sclerae normal Pupils: Equal, round and reactive pupils present Neck Neck: Yes normal visual inspection Chest Chest palpation & inspection: normal inspection of the chest Resp Effort & Inspection: normal respiratory effort Auscultation: clear to auscultation bilaterally Cardio Palpation: normal PMI Rate: regular rate Rhythm: regular rhythm Heart sounds: S1 normal heart sound present, S2 normal heart sound present and no murmurs GI Palpation (GI): Soft to palpation, Tenderness to palpation present (GI) (Minimal RLQ tenderness) and No hepatosplenomegaly present Auscultation: normal bowel sounds Rectal Exam - Male: Yes deferred Skin General skin exam: no rashes or lesions noted Neuro General: patient oriented x3, gait normal and moves all extremities Cranial nerves: Yes Equal, round and reactive pupils present Psych Appearance: grossly normal Mental Status: mental status grossly normal Assessment & Plan Assessment & Plan (1) Crohn's disease of both small and large intestine with rectal bleeding: Code(s): K50.811 - Crohn's disease of both small and large intestine with rectal bleeding Category: Medical (2) Perianal fistula: Code(s): K60.3 - Anal fistula Category: Medical (3) Iron deficiency anemia: Code(s): D50.9 - Iron deficiency anemia, unspecified Category: Medical Plan 29 YM with perianal fistula, Crohn's disease of both large and small intestine with rectal bleeding, immunosuppressed status, high BMI, hepatitis a immune followed in GI for Crohn's Disease involving small and large intestine.. Pt was being treated with Remicade 10 mg/kg every 4 weeks and noted breakthrough symptoms 3 weeks after Remicade infusion. 11/09 EGD showed gastritis and duodenitis. Same-day colonoscopy showed:? Cobblestoning with chronic appearing serpiginous ulcers in TI with white exudates, ulcerated ICV. A few 4-5 mm pseudopolyps in the right colon and moderate sigmoid diverticulosis. Moderate internal hemorrhoids, perianal skin tags with ulceration in the anal canal consistent with active etienne-anal Crohn's disease. Biopsies were negative for CMV and HSV and showed chronic inflammation. 12/20/19 MR enterography showed nonobstructive active inflammation involving distal 15 cm ileum. No proximal obstruction, visible cobblestoning, fistula, or fluid collection. Patient was started on Humira on 12/12/19 and dose of Humira was increased to 40 mg every week on 06/21/20 with significant? improvement in his symptoms. Patient was advised to continue Humira 40 mg every week and continue azathioprine 50 mg daily. 10/2022 EGD and Colonoscopy were performed and results as noted. Pt started on azathioprine 50 mg daily due to low adalumimab levels. 01/14/23 Pt advised to have labs checked today. If labs are normal, I will increase azathioprine to 100 mg daily. 01/10/24 Pt started on MTX 15 mg every week and azathioprine was discontinued 04/07/24 Pt seen in the ED on 04/04/[address] findings as noted above Pt advised repeat labs and start prednisone taper over 4 weeks 04/21/24 Labs reviewed with the patient. Advised to increase Humira to 80 mg every week Dated prescriptions sent. 05/19/24 Humira increased to 80 mg every week on 05/11/24 Continue MTX 15 mg SQ every week and add folic acid Check labs in 3 weeks 08/11/24 Labs and Dexa scan Follow-up in 3 months Orders: Orders Complete Blood Count Auto Diff Today K50.811 - Crohn's disease of both small and large intestine with rectal bleeding C Reactive Protein Today K50.811 - Crohn's disease of both small and large intestine with rectal bleeding Hepatitis B Surface Antibody Today K50.811 - Crohn's disease of both small and large intestine with rectal bleeding Adalimumab+Ab Today K50.811 - Crohn's disease of both small and large intestine with rectal bleeding XR DEXA axial skeleton Today K50.811 - Crohn's disease of both small and large intestine with rectal bleeding Comprehensive Met. Panel Today K50.811 - Crohn's disease of both small and large intestine with rectal bleeding Medications: Refilled mupirocin 2% 1 appl topical TID 22 grams 0RF Coding Level of Care Code Est Pt Level 3 (90636) Diagnoses Crohn's disease of both small and large intestine with rectal bleeding K50.811 Perianal fistula K60.3 Iron deficiency anemia D50.9 Time Spent (min) 20
[2024-08-11 07:53] VITALS: BP 165/75; PULSE 104; BMI 27.3
== END 2024-08-11 08:08 | disposition home or self-care (01) ==
PROVIDERS: Visit Provider Internal Medicine Gastroenterology
DX: K50.811 Crohn's disease of both small and large intestine with rectal bleeding (principal); K60.30 Anal fistula, unspecified; D50.9 Iron deficiency anemia, unspecified
CPT/HCPCS: 99213

== ENCOUNTER 2024-08-11 07:28 | Outpatient (REF) | payer OTHER, SELFPAY ==
[2024-08-11 08:27] LABS: MANUAL DIFF FLAG NO
[2024-08-11 09:07] LABS: Basophils Absolute Auto 0.1 X10*3/uL (0.0-0.2); Basophils Percent Auto 0.7 % (0-2); Eosinophils Absolute Auto 0.3 X10*3/uL (0.0-0.4); Eosinophils Percent Auto 3.2 % (0-4); Hematocrit 35.6 % (42.0-52.0); Hemoglobin 10.7 g/dl (14.0-18.0); Imm Gran Abs Auto 0.04 X10*3/uL (0.00-0.03); Imm Gran Pct Auto 0.4 % (0.0-0.4); Lymphocytes Absolute Auto 1.5 X10*3/uL (1.2-4.9); Lymphocytes Percent Auto 14.1 % (20-40); Mean Corpuscular HGB Conc 30.1 g/dl (31.0-36.0); Mean Corpuscular Hemoglobin 20.4 pg (27.0-33.0); Mean Corpuscular Volume 67.9 fL (80.0-98.0); Mean Platelet Volume 8.2 fL (9.4-12.4); Monocytes Percent Auto 9.5 % (2-11); Neutrophils Absolute Auto 7.4 x10*3/uL (2.0-8.3); Neutrophils Percent Auto 72.1 % (45-73); Platelet Count 650 X10*3/uL (160-400); Red Blood Count 5.24 X10*6/uL (4.60-5.80); Red Cell Distribution Width 20.3 % (11.0-16.0); White Blood Count 10.3 X10*3/uL (4.8-10.8)
[2024-08-11 10:24] LABS: Alanine Aminotransferase 12 U/L (0-40); Albumin Level 3.5 g/dL (3.5-5.0); Alkaline Phosphatase 59 U/L (39-117); Anion Gap 11 (12-20); Aspartate Amino Transferase 21 U/L (5-37); Bilirubin Total 0.3 mg/dL (0.0-1.0); Blood Urea Nitrogen 10 mg/dL (9-16); C Reactive Protein 8.64 mg/dL (< or = 0.50); Calcium 9.2 mg/dL (8.4-10.2); Carbon Dioxide 29 mmol/L (22-29); Chloride 104 mmol/L (96-108); Estimated Glomerular Filt Rate > 60; Glucose Random 109 mg/dL (60-115); Potassium 4.2 mmol/L (3.3-5.1); Sodium 140 mmol/L (135-145); Total Protein 8.7 g/dL (6.5-8.0)
[2024-08-11 10:30] LABS: ~Hepatitis B Surface Antibody NONREACTIVE (Nonreactive)
[2024-08-21 22:58] LABS: Adalimumab Drug Level 7.6 mcg/mL; Anti-Adalimumab Antibody <10 AU (<10)
== END 2024-08-11 07:29 | disposition home or self-care (01) ==
LOC: HO.LAB 07:28
PROVIDERS: Visit Provider Internal Medicine Gastroenterology
DX: K50.811 Crohn's disease of both small and large intestine with rectal bleeding (principal)
CPT/HCPCS: 36415; 80053; 80145; 83520; 85025; 86140; 86706

== ENCOUNTER → 2024-09-26 08:15 | Outpatient (BNV) | payer OTHER, SELFPAY | PROVIDERS: PCP Nurse Practitioner Primary Care; Visit Provider Radiology Diagnostic Radiology | DX: E28.39 Other primary ovarian failure (principal) | CPT/HCPCS: 77080 ==

== ENCOUNTER 2024-09-26 08:22 | Outpatient (REF) | payer OTHER, SELFPAY ==
--- NOTE | ~2024-09-26 | MM_ITS ---
EXAMINATION: DXA BONE DENSITY AXIAL HISTORY: Crohn's disease TECHNIQUE: Yasuu Dual energy absorptiometry (DEXA) of the lumbar spine, total left hip, and femoral neck was performed. COMPARISON: There are no prior studies for comparison. FINDINGS: The bone mineral density of the lumbar spine is 1.333 with a T-score of 0.9, and a Z-score of 0.4. The bone mineral density of the left total hip is 1.112 with a T-score of 0.1, and a Z-score of -0.2. The bone mineral density of the left femoral neck is 1.084 with a T-score of 0.1, and a Z-score of -0.3. MM/XR DEXA axial skeleton IMPRESSION: Based on bone mineral density, and according to World Health Organization (WHO) criteria, the diagnosis is consistent with normal bone mineral density. All bone density values are in grams per centimeter squared (g/cm2). Statistically, 68% of repeat scans fall within 1 SD (+/- 0.010 g/cm2 for AP spine L1-L4) and 1 SD (+/- 0.012 g/cm2 for femur total) FRAX is a trademark of the [employer]'s [employer], a World Health Organization (WHO) Collaborating Center. Electronically signed by: Gennaro Butler MD 09/28/2024 07:04 AM [facility]
--- OUTSIDE RECORDS SUMMARY | 2024-09-26 08:37 | XMS_ITS | Encounter Summary ---
Author Organization [employer] Address [address] [place] [address] Care Team Providers Care Group Director Name Role Phone Correi Bowden Primary Care Provider [phone] Reason for Visit * Reason Onset Date Comments New Patient Appt 02/24/2023 Encounter Details Date Type Department Care Team ([facility] st Contact Info) Description 02/24/2023 Telephone [facility] MEDICINE [address] [place] [address] Corrie Bowden ANP [address] [place] [address] New Patient Appt Social History Tobacco Use Types Packs/Day Years Used Date Smoking Tobacco: Never Smokeless Tobacco: Never Sex and Gender Information Value Date Recorded Sex Assigned at Male 06/22/2022 10:16 AM EDT Legal Sex Male 10:16 AM EDT Gender Identity Male 06/22/2022 10:16 AM EDT Sexual Orientation Straight 06/22/2022 10 :16 AM EDT documented as of this encounter Miscellaneous Notes * Telephone Encounter - Namrata Hernandez - 02/24/2023 12:52 PM EDT PAR Namrata Huntley called pt to Offer DATA COLLECTION TECHNICIAN appt. Pt demographics and insurance information were verified. Pt reports the following medical conditions: Crohn Disease. Pt is currently taking medication:pseudoephedrine (Sudafed) 30 MG tablet and azithromycin (Zithromax) 250 MG tablet . Pt given DATA COLLECTION TECHNICIAN appt with PCP TARIK Bowden on 04/01/2023 @ 10:30 am. Pt will be sent appt reminder card and medical release form and agrees to complete and to return to medical records prior to DATA COLLECTION TECHNICIAN appt. documented in this encounter Plan of Treatment Upcoming Encounters Date Type Department Care Team (Late st Contact Info) Description 10/05/2024 2:30 PM EST Office Visit [facility] OPTOMETRY [address] [place] [address] Madyson Zapata, FRANCESCA [address] [place] [address] documented as of this encounter Visit Diagnoses Not on filedocumented in this encounter Care Teams Group Director Relationship Specialty Start Date End Date Corrie Bowden ANP [address] [place] [address] PCP - General Family Medicine 03/10/23 documented as of this encounter
--- OUTSIDE RECORDS SUMMARY | 2024-09-26 08:37 | XMS_ITS | Clinical Summary ---
Author Organization [employer] Address [address] [facility] [address] [place] [address] Care Team Providers Care Director Investor Relations Name Role Phone Corrie Bowden Primary Care Provider [phone] Allergies Active Allergy Reactions Criticality Noted Date Comments Amoxicillin 07/25/2012 Ampicillin Anaphylaxis High 10/19/2022 Medications adalimumab (Humira) 20 MG/0.4ML Prefilled Syringe Kit prefilled syringe Ac tive azaTHIOprine (Imuran) 50 MG tablet 04/01/2023 Active Active Problems Problem Noted Date Diagnosed Date Abdominal pain 07/26/2023 07/26/2023 Nodular episcleritis of both eyes 04/08/2023 Crohn's disease 04/01/2023 Perianal fistula 04/21/2017 Crohn's disease of small and large intestines Immunosuppression 06/22/2016 Immunizations Name Administration Dates Next Due DTaP 05/20/2001, 8,04/03/1997,11/24,1996 HPV, Quadrivalent 04/12/2014 Hep A, ped/adol, 2 dose 04/12/2014 Hep B, Adolescent or Pediatric 08/10/2002,1996,05/21/1997 Hib (HbOC) 10/15/1997,02/27/1997,1996 IPV 02/21/2001, 7,1996,10/18 Influenza injectable quadriv alent IIV4 with preservative 10/06/2017,06/22/2016 Influenza injectable quadriv alent preservative free 05/15/2021 Influenza, IIV3, injectable 07/12/2014 MMR 02/21/2001,09/12/1997 Meningococcal MCV4P ACYW-135 04/12/2014,10/14/19 08 Pneumococcal Conjugate PCV 13 06/25/2016 Pneumococcal Polysaccharide PPSV23 10/06/2017 TD (adult), 2 Lf tetanus tox oid, preservative free, adsorbed 02/05/2018 Tdap 10/14/2007 Varicella 11/17/2013,04/21/2002 Family History Medical History Relation Name Comments Crohn's disease Father Relation Name Status Comments Father Social History Tobacco Use Types Packs/Day Years Used Date Smoking Tobacco: Never Passive Smoke Exposure: Never Smokeless Tobacco: Never Tobacco Cessation:Counseling Given: Not Answered Depression Answer Date Recorded Patient Health Questionnaire-9 Score 0 04/01/2023 Housing Stability Answer Date Recorded What is your housing situation today? I have marielle adam 06/16/[address] you li ve. Do you have problems with any of the following? None of the above 06/16/2023 Food Insecurity Answer Date Recorded Within the past 12 months, y ou worried that your food would run out before you got money to buy more: Never True 06/16/2023 Within the past 12 months,th e food you bought just didn't last and you didn't have enough money to get more: Never True Transportation Answer Date Recorded In the past 12 months, has l ack of transportation kept you from medical appts, meetings, work or from getting things needed for daily living? No 06/16/2023 Utilities Answer Date Recorded In the past 12 months, has t he electric, gas, oil or water company threatened to shut off services in your home? No 06/16/2023 Depression Answer Date Recorded Patient Health Questionnaire-2 Score 0 04/01/2023 Sex and Gender Information Value Date Recorded Sex Assigned at Male 06/22/2022 10:16 AM EDT Legal Sex Male 10:16 AM EDT Gender Identity Male 06/22/2022 10:16 AM EDT Sexual Orientation Straight 06/22/2022 10 :16 AM EDT Last Filed Vital Signs Vital Sign Reading Time Taken Comments Blood Pressure 123/85 04/03/2024 1:17 PM EDT Pulse 78 04/03/2024 1:17 PM EDT Temperature 36.7 ??C (98 ??F) 04/03/2024 1:17 PM EDT Respiratory Rate 16 04/03/2024 1:17 PM EDT Oxygen Saturation 99% 04/03/2024 1:17 PM EDT Inhaled Oxygen Concentration - - Weight 88.5 kg (195 lb) 04/03/2024 1:17 PM EDT Height 178 cm (5' 10.08 ) 04/01/2023 10:50 AM ED T Body Mass Index 27.92 04/01/2023 10:50 AM EDT Plan of Treatment Upcoming Encounters Date Type Department Care Team (Late st Contact Info) Description 10/05/2024 2:30 PM EST Office Visit [facility] [address] [place], [place] [id number] Benny, Madyson, OD [address] [place] [address] Health Maintenance Due Date Last Done Comments Alcohol/Substance Use Screening 2008 Family Planning (PISQ) 2011 HPV Vaccines (2 - Male 3-dose series) 05/10/2014 04/12/2014 Hepatitis A Vaccines (2 of 2 - 2-dose series) 10/13/2014 04/12/2014 Zoster Vaccines (1 of 2) 2015 COVID-19 Vaccine (3 - Pfizer risk series) 06/12/2021 05/15/2021, 04/24/2021 Pneumococcal Vaccine: Pediatrics (0 to 5 Years) and At-Risk Patients (6 to 49) Years) (3 of 3 - PPSV23, PCV20 or PCV21) 10/06/2022 10/06/2017, 06/25/2016 Depression Screening 04/01/2024 04/01/2023, 04/01/20 23 SDOH Screening 04/01/2024 04/01/2023 Influenza Vaccine (#1) 2024 , 10/06/2017, 06/22/2016, Additional history exists Tobacco Screening 04/03/2025 04/03/2024 DTaP/Tdap/Td Vaccines (8 - Td or Tdap) 02/06/2028 02/05/2018, 10/14/2007, 05/20/2001, Additional history exists RSV Patients and Patients Aged 60 years or older (1 - 1-dose 75+ series) 2071 HIB Vaccines Completed 10/15/1997, 03/1997, 1996 IPV Vaccines Completed 02/21/2001, 03/1997, 1996, Additional history exists Hepatitis B Vaccines Completed 08/10/2002, 06/16/1997, 05/21/1997, Additional history exists Meningococcal Vaccine Completed 04/12/2014, 008 HIV Screening Completed 04/01/2023 Hepatitis C Screening Completed 04/01/2023 RSV under 20 months Aged Out No longe r eligible based on patient's age to complete this topic Rotavirus Vaccines Aged Out No longer eligible based on patient's age to complete this topic Procedures Procedure Name Priority Date/Time Associated Diagnosis Comments HEPATITIS C ANTIBODY REFLEX Routine 04/01/2023 2:08 PM EDT HIV ANTIBODY/ANTIGEN ([place] [facility]) Routine 04/01/2023 2:08 PM EDT from Last 3 Months or Most Recently Relevant to Health Maintenance Results * Hepatitis C Antibody Reflex (04/01/2023 2:08 PM EDT) Hepatitis C Antibody Nonreactive Nonreactive [facility] Comment:Antibodies to HCV no t detected; does not exclude early acuteHCV infection. 04/01/2023 2:08 PM EDT 04/01/2023 4:09 PM EDT Critical access hospital LAB BLOOD ORDERABLES Final Resul t [facility] [address] [place] [address] [phone] * HIV Ab/Ag ([place] [facility]) (04/01/2023 2:08 PM EDT) HIV AB/AG Nonreactive Nonreactive [facility] Comment:HIV-1 p24 Ag and/or HIV-1/HIV-2 Ab not detected.A test result that is nonreactive does not exclude thepossibility of exposure to or infection with HIV-1 and/orHIV-2. Nonreactive results in this assay for individualswith prior exposure to HIV-1 and/or HIV-2 may be due toantigen and antibody levels that are below the limit ofdetection of this assay.[employer] HIV Ag/Ab Combo assay result andsupplemental assay results should be interpreted inconjunction with the patient's clinical presentation,history and other laboratory results. If the results areinconsistent with clinical evidence, additional testing issuggested to confirm the result. 04/01/2023 2:08 PM EDT 04/01/2023 4:09 PM EDT Critical access hospital LAB BLOOD ORDERABLES Final Resul t [facility] [address] [place] [address] [phone] from Last 3 Months or Most Recently Relevant to Health Maintenance Insurance [facility] Care Teams Director Investor Relations Relationship Specialty Start Date End Date Corrie Bowden ANP [address] [place] [phone] PCP - General Family Medicine 03/10/23
== END 2024-09-26 08:23 | disposition home or self-care (01) ==
LOC: HO.MAMMO 08:22
PROVIDERS: PCP Nurse Practitioner Primary Care; Visit Provider Internal Medicine Gastroenterology
DX: Z13.820 Encounter for screening for osteoporosis (principal); M85.80 Other specified disorders of bone density and structure, unspecified site; K50.811 Crohn's disease of both small and large intestine with rectal bleeding
CPT/HCPCS: 77080

== ENCOUNTER 2024-11-09 13:25 | Outpatient (REF) | payer OTHER, SELFPAY ==
[2024-11-09 14:44] LABS: MANUAL DIFF FLAG NO
[2024-11-09 15:12] LABS: Basophils Absolute Auto 0.1 X10*3/uL (0.0-0.2); Basophils Percent Auto 1.1 % (0-2); Eosinophils Absolute Auto 0.3 X10*3/uL (0.0-0.4); Eosinophils Percent Auto 3.7 % (0-4); Hematocrit 33.2 % (42.0-52.0); Hemoglobin 10.1 g/dl (14.0-18.0); Imm Gran Abs Auto 0.03 X10*3/uL (0.00-0.03); Imm Gran Pct Auto 0.3 % (0.0-0.4); Lymphocytes Absolute Auto 1.7 X10*3/uL (1.2-4.9); Lymphocytes Percent Auto 18.5 % (20-40); Mean Corpuscular HGB Conc 30.4 g/dl (31.0-36.0); Mean Corpuscular Hemoglobin 20.7 pg (27.0-33.0); Mean Corpuscular Volume 68.2 fL (80.0-98.0); Monocytes Absolute Auto 0.6 X10*3/uL (0.1-1.2); Monocytes Percent Auto 6.6 % (2-11); Neutrophils Absolute Auto 6.2 x10*3/uL (2.0-8.3); Neutrophils Percent Auto 69.8 % (45-73); Platelet Count 707 X10*3/uL (160-400); Red Blood Count 4.87 X10*6/uL (4.60-5.80); Red Cell Distribution Width 19.2 % (11.0-16.0); White Blood Count 8.9 X10*3/uL (4.8-10.8)
[2024-11-09 15:50] LABS: Alanine Aminotransferase 15 U/L (0-40); Albumin Level 3.5 g/dL (3.5-5.0); Alkaline Phosphatase 57 U/L (39-117); Anion Gap 10 (12-20); Aspartate Amino Transferase 20 U/L (5-37); Bilirubin Total 0.1 mg/dL (0.0-1.0); Blood Urea Nitrogen 12 mg/dL (9-16); C Reactive Protein 4.54 mg/dL (< or = 0.50); Calcium 9.2 mg/dL (8.4-10.2); Carbon Dioxide 29 mmol/L (22-29); Chloride 104 mmol/L (96-108); Estimated Glomerular Filt Rate > 60; Glucose Random 71 mg/dL (60-115); Potassium 3.8 mmol/L (3.3-5.1); Sodium 139 mmol/L (135-145); Total Protein 8.7 g/dL (6.5-8.0)
== END 2024-11-09 13:26 | disposition home or self-care (01) ==
LOC: HO.LAB 13:25
PROVIDERS: Visit Provider Internal Medicine Gastroenterology
DX: K50.811 Crohn's disease of both small and large intestine with rectal bleeding (principal); K60.30 Anal fistula, unspecified; D50.9 Iron deficiency anemia, unspecified
CPT/HCPCS: 36415; 80053; 85025; 86140

== ENCOUNTER 2024-11-09 13:25 | Outpatient (AMB) | payer OTHER, SELFPAY ==
--- NOTE | 2024-11-09 13:32 | MHC.OFFVIS ---
Vital Signs 11/09/24 13:33 Height 5 ft 9 in Weight 179 lb BMI 26.4 BP 140/83 H Blood Pressure Location Lt brachial Position Sitting Pulse 84 Pulse Oximetry (%) 98 Oxygen Delivery Method Room Air Intake Visit Reasons: crohns disease Intake Note: Patient follow up for Crohn's disease of both small and large intestine with rectal bleeding, Lab and dexa scan results. Patient cc: abdominal pain with some bloating, and lost weight, denies any other GI issues. Appeals Representative Required: No Accompanied by: Self / Same As Patient Allergies ampicillin (AMPICILLIN) Allergy (Mild, Verified 11/09/24 13:27) SWELLING, anaphylaxis Medication List - Last Reconciled 11/09/24 by Fuentes Burton MD adalimumab (Humira(CF) Pen) 80 mg (0.8 mL) subcut QWEEK 4 weeks albuterol sulfate 90 mcg/actuation 1 inh inhalation QID PRN cholecalciferol (vitamin D3) 250 mcg PO 2XW 90 days ferrous sulfate 325 mg PO BID 50 days folic acid 1 mg PO DAILY 90 days methotrexate (PF) (Otrexup (PF)) 15 mg (0.4 mL) subcut QWEEK mupirocin 2% 1 appl topical TID HPI HPI crohns disease: Details: GI CLINIC VISIT FOR THIS 29-YEAR-OLD MALE FOLLOWED IN GI FOR 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 Patient was on Remicade for 6 yrs with breakthrough symptoms. Patient was started on Humira on 12/12/19 and dose of Humira was increased to 40 mg every week on 06/21/20 with significant? improvement in his symptoms. 01/10/24 Pt started on MTX 15 mg every week and azathioprine was discontinued 04/21/24 Humira increased to 80 mg every week due to sub-therapeutic levels CHRONIC ILLNESSES:?PERIANAL FISTULA, CROHN'S DISEASE OF BOTH SMALL AND LARGE INTESTINE WITH RECTAL BLEEDING, IMMUNOSUPPRESSED STATUS, HIGH BMI, HEP A IMMUNE, HEP B NON- IMMUNE ?TODAY'S VISIT: Patient follow up for Crohn's disease of both small and large intestine with rectal bleeding, Lab and dexa scan results. Patient cc: abdominal pain with some bloating, and lost weight, denies any other GI issues. Complains of RLQ pain for the past month. Can have abd pain after he eats and sometimes even without eating. Having 5-6 non-bloody BMs a day Wt loss of 15 lbs over the past 6 months Switched to a healthier diet PAST VISITS: Complains of intermittent periumblical pain Tolerating Humira and MTX. Having 4-5 non bloody BMs a day. Intermittent drainage from the fistula without rectal pain Complains of joint pains Denies eye problems Finished prednisone 2 weeks and abdominal pain has resolved. Increased dose of Humira to 80 mg every week on 05/11/24 Having 4-5 BMs a day Notes eye symptoms have improved Increased allergy symptoms - sneezing Continues to have -05/02 RLQ pain - comes and goes Feels uncomfortable - denies change in Abd pain after eating. Has 4-5 BM/day begining of the week. Has 7-8 BM per day on as Humira starts wearing off Takes Humira every Wednesday. Takes MTX 15 mg every Wednesday and advised to change to Wednesday Recurrent eye problems last month - using eye drops and scheduled to see the eye doctor next week ?IBD SUMMARY ? Year of diagnosis: 02/2014 - presented with diarrhea, abd pain, bloody stools and fatigue, weight loss from 230 to 170 lbs. ? Extent of disease: Small intestine and ? Colon. EGD and colonoscopy showed duodenitis, gastritis diffuse inflammation of the ileum and colon ? PREVIOUS ENDOSCOPIES: 10/2022 EGD and colon were performed 10/2019 EGD showed gastritis and duodenitis. Same-day colonoscopy showed: Cobblestoning with chronic appearing serpiginous ulcers in TI with white exudates, ulcerated ICV. A few 4-5 mm pseudopolyps in the right colon and moderate sigmoid diverticulosis. Moderate internal hemorrhoids, perianal skin tags with ulceration in the anal canal consistent with active etienne-anal Crohn's disease. Biopsies were negative for CMV and HSV and showed chronic inflammation. 03/05 EGD AND COLON- diffuse inflammation of the ileum, colon , duodenitis and gastritis? 01/06 Colonoscopy - mild to moderate inflammation? 01/07 COLONOSCOPY SHOWED ulceration the terminal ileum, pseudopolyps in the ascending colon, normal mucosa in the whole colon, internal hemorrhoids. Digital rectal examination was abnormal with skin tags and no fistula. Biopsy showed active ileitis, severe with ulceration of the terminal ileum and active mild focal colitis in the right and left colon. No granulomas or dysplasia was seen. ? Last Colonoscopy: ? October 2018 - a little bit of inflammation and treated with steroids and increased dose of Remicade 10 mg/kg every 4 weeks. ? NEXT COLONOSCOPY DUE: in 2-3 yrs ? PAST SURGERY: NONE ? PAST TREATMENTS: Methotrexate, Steroids, and then Remicade, Budesonide 01/2017 - stopped after 1 month. (PT DOES NOT LIKE TAKING PILLS) ? CURRENT TREATMENT: Humira every week and MTX 15 mg once weekly. ? ASSOCIATED DIAGNOSIS: Perianal fistula, Eye problems ? IMMUNIZATIONS: Gets a flu shot every year. Pneumococcal 23 vaccination and Pneumovax were completed in September 2017. ? LAST PPD/TB [facility]: MAR 20[facility]13/19 normal CBC with H&H of 12.5 and 37.9 with microcytosis and hypochromia, ? ESR 31, CRP 6.94, vitamin-D 14.4 , T spot was negative ? Stool cold calprotectin was elevated at 1796.5 IMAGING STUDIES: 04/04/[address] SCAN SHOWED: Thickening of the distal small bowel/terminal ileum extending to the cecum with infiltrative change in the right lower quadrant. The appendix is not identified separate structure. Findings consistent with terminal ileitis and cecal colitis. Inflammatory bowel disease is a consideration. Other considerations would include inflammatory bowel disease. Appendicitis cannot entirely excluded. 12/20/19 MR ENTEROGRAPHY SHOWED: ? IMPRESSION: ? Nonobstructive active inflammation involving distal 15 cm ileum. No proximal obstruction, visible cobblestoning, fistula, or fluid collection. ?ENDOSCOPIC STUDIES: 10/29/22 EGD AND COLON SHOWED: Endoscopy Findings: STOMACH: Gastritis DUODENUM: Three 4-5 mm chronic appearing healing ulcers in the descending duodenum - biopsied Colonoscopy Findings: No polyps were detected Active right sided colitis due to Crohn's disease (Cecum, ICV and AC). Patchy erythema with friable appearing mucosa without ulcers in the transverse and left colon. Active etienne-anal Crohn's disease Moderate diverticulosis seen in the sigmoid colon Plan: Repeat Colonoscopy interval based on path results - in 1- 2 years for FU of Crohn's disease 10/27/2019 EGD AND COLONOSCOPY SHOWED:? STOMACH: Mild gastric erythema with edematous folds with aphthoid ulcers in the ? antrum. Biopsies were obtained. Grade 1 flap valve on retroflexed examination of the cardia. ? DUODENUM: Duodenitis with multiple 5-6 mm ulcers in the bulb - biopsied. A ? few 4-5 mm ulcers in the 2nd/3rd part of the duodenum - biopsies were obtained ? Colonoscopy Findings: ? Terminal Ileum Distal 7-8 cms was examined and showed cobblestoning with ? chronic appearing serpiginous ulcers with white exudates - biopsies were ? obtained for histology and viral cultures. ? Ulcerated ICV. A few 4-5 mm pseudopolyps in the right colon. ? Moderate diverticulosis seen in the sigmoid colon ? Moderate internal hemorrhoids, perianal skin tags with ulceration in the anal ? canal consistent with active etienne-anal Crohn's disease. ? Plan: ? I will discuss switching from Remicade to Humira with the patient at his FU visit. ? Patient has an appointment on 11/10/19 in the GI Clinic with Fuentes Burton M.D.- ? Repeat Colonoscopy interval based on path results - in 2- 3 years for surveillance biopsies. ? Biopsies showed: ? A. Small bowel, biopsies: Acute duodenitis; negative for dysplasia/malignancy. ? B. Stomach, bulb, biopsies: Marked active gastritis; negative for Helicobacter; ? negative for granulomas; negative for dysplasia/malignancy. ? C. Stomach, antrum, biopsies: Marked active gastritis; negative for Helicobacter; ? negative for granulomas; negative for dysplasia/malignancy. ? D. Terminal ileum, biopsies: Chronic, severe active ileitis; negative for granulomas; negative for dysplasia/malignancy. ? E. Ileocecal valve, biopsies: Severe active, chronic colitis; negative for granulomas; ? negative for dysplasia/malignancy. F. Colon, right, biopsies: Colonic mucosa within normal limits; no active ? inflammation; negative for granulomas; negative for dysplasia/malignancy. ? G. Colon, left, biopsies: Colonic mucosa within normal limits; no active inflammation; ? negative for granulomas; negative for dysplasia/malignancy. ? 8. Rectum, biopsies: Colonic mucosa within normal limits; no active inflammation; ? negative for granulomas; negative for dysplasia/malignancy ? PAST VISIT: Complains of intermittent LUQ abd pain - comes and goes Can feel like a sharp pain and resolves after 1-2 minutes. Denies association with eating. Can happen randomly while he is watching TV. Can have 5 or more BMs a day Notes blood in the stool when he gets abdominal cramps Denies nocturnal diarrhea Had eye symptoms 3 weeks ago which resolved after he used steroid drops Requesting a refill for Vitamin D Denies abdominal pain or diarrhea. Has 3-4 BMs a days and sometimes upto 5. Feels well with improved energy levels He was having some eye problems and referred to the Eye Doctor He was told Crohn's disease was affecting his eyes (? Uveitis) and prescribed some eye drops Eye is better now. Mon and and increase to 4 and 5 on and Wednesday. Takes injection in the morning and if he forgets then 5 pm in the evening Taking Humira every Wednesday. Diarrhea comes and goes _ nothing crazy Can have 4-5 BMs a day - sometimes with blood. Notes abdominal cramping 1-2 days before next Humira injection Taking Vitamin D intermittently. Has a BM 3 times a day - vary between soft and solid. Notes some blood once in a while. Denies?any symptoms of recurrent perianal fistula. Pt has gained 14 lbs over the past 4 months. I am doing really good Humira is doing its job. No abdominal pain or bloody stools. Eye problem has resolved. ? Pt states that he has been doing really good! no GI sx. ? Notes resolution of abdominal cramps and rectal bleeding. ? Has 4 normal BMs a day. ? Taking Humira every week and is taking azathioprine. ? Feels Humira is helping. ? Wt is stable at 190- 200 lbs. Saw the ophalmologist - felt he had sand in his eyes - prescribed eye drops with resolution of symptoms [facility] Medical History Nonimmune to hepatitis B virus Hepatitis A immune Crohn's disease Surgical History Hx of colonoscopy (10/27/19) Hx of esophagogastroduodenoscopy (10/27/19) History of ankle surgery (~02/2017) Hx of tonsillectomy Social History Household Members: Family Alcohol intake: current Alcohol intake frequency: does not drink Patient Tobacco Use Status: Never used Tobacco Substance Use Type: IV Drugs Current occupation: Works at [employer] Review of Systems Const All systems reviewed & are unremarkable except as noted in HPI and below Physical Exam Vital Signs: Last Vital Signs Pulse 84 11/09/24 13:33 BP 140/83 H 11/09/24 13:33 Pulse Ox 98 11/09/24 13:33 Oxygen Delivery Method Room Air 11/09/24 13:33 BMI result Body Mass Index 26.4 Const General: healthy appearing and no acute distress Nutritional Appearance: obese Orientation/consciousness: patient oriented x3 Limitations: no limitations HEENT Head: Yes normal to inspection Ears: hearing grossly normal bilaterally Mouth: Normal oral and palatal mucosa present Eyes Sclerae: sclerae normal Pupils: Equal, round and reactive pupils present Neck Neck: Yes normal visual inspection Chest Chest palpation & inspection: normal inspection of the chest Resp Effort & Inspection: normal respiratory effort Auscultation: clear to auscultation bilaterally Cardio Palpation: normal PMI Rate: regular rate Rhythm: regular rhythm Heart sounds: S1 normal heart sound present, S2 normal heart sound present and no murmurs GI Palpation (GI): Soft to palpation, Tenderness to palpation present (GI) (Minimal RLQ tenderness) and No hepatosplenomegaly present Auscultation: normal bowel sounds Rectal Exam - Male: Yes deferred Skin General skin exam: no rashes or lesions noted Neuro General: patient oriented x3, gait normal and moves all extremities Cranial nerves: Yes Equal, round and reactive pupils present Psych Appearance: grossly normal Mental Status: mental status grossly normal Assessment & Plan Assessment & Plan (1) Crohn's disease of both small and large intestine with rectal bleeding: Code(s): K50.811 - Crohn's disease of both small and large intestine with rectal bleeding Category: Medical (2) Perianal fistula: Code(s): K60.3 - Anal fistula Category: Medical (3) Iron deficiency anemia: Code(s): D50.9 - Iron deficiency anemia, unspecified Category: Medical Plan 29 YM with perianal fistula, Crohn's disease of both large and small intestine with rectal bleeding, immunosuppressed status, high BMI, hepatitis a immune followed in GI for Crohn's Disease involving small and large intestine.. Pt was being treated with Remicade 10 mg/kg every 4 weeks and noted breakthrough symptoms 3 weeks after Remicade infusion. 11/09 EGD showed gastritis and duodenitis. Same-day colonoscopy showed:? Cobblestoning with chronic appearing serpiginous ulcers in TI with white exudates, ulcerated ICV. A few 4-5 mm pseudopolyps in the right colon and moderate sigmoid diverticulosis. Moderate internal hemorrhoids, perianal skin tags with ulceration in the anal canal consistent with active etienne-anal Crohn's disease. Biopsies were negative for CMV and HSV and showed chronic inflammation. 12/20/19 MR enterography showed nonobstructive active inflammation involving distal 15 cm ileum. No proximal obstruction, visible cobblestoning, fistula, or fluid collection. Patient was started on Humira on 12/12/19 and dose of Humira was increased to 40 mg every week on 06/21/20 with significant? improvement in his symptoms. Patient was advised to continue Humira 40 mg every week and continue azathioprine 50 mg daily. 10/2022 EGD and Colonoscopy were performed and results as noted. Pt started on azathioprine 50 mg daily due to low adalumimab levels. 01/14/23 Pt advised to have labs checked today. If labs are normal, I will increase azathioprine to 100 mg daily. 01/10/24 Pt started on MTX 15 mg every week and azathioprine was discontinued 04/07/24 Pt seen in the ED on 04/04/[address] findings as noted above Pt advised repeat labs and start prednisone taper over 4 weeks 04/21/24 Labs reviewed with the patient. Advised to increase Humira to 80 mg every week Dated prescriptions sent. 05/19/24 Humira increased to 80 mg every week on 05/11/24 Continue MTX 15 mg SQ every week and add folic acid Check labs in 3 weeks 11/09/24 Complains of RLQ pain for the past month. Can have abd pain after he eats and sometimes even without eating. Having 5-6 non-bloody BMs a day Wt loss of 15 lbs over the past 6 months Lab and Dexa scan results reviewed Pt advised to continue MTX 15 mg SQ every week and Skyrizi 180 mg SQ every 8 weeks Keep appt with the colorectal surgeon at [facility] Follow-up in 3 months Orders: Orders C Reactive Protein 11/09/24 K50.811 - Crohn's disease of both small and large intestine with rectal bleeding Complete Blood Count Auto Diff 11/09/24 K50.811 - Crohn's disease of both small and large intestine with rectal bleeding Comprehensive Met. Panel 11/09/24 K50.811 - Crohn's disease of both small and large intestine with rectal bleeding Coding Level of Care Code Est Pt Level 4 (41776) Diagnoses Crohn's disease of both small and large intestine with rectal bleeding K50.811 Perianal fistula K60.3 Iron deficiency anemia D50.9 Time Spent (min) 21
[2024-11-09 13:33] VITALS: BP 140/83; PULSE 84; O2SAT 98; BMI 26.4
== END 2024-11-09 14:27 | disposition home or self-care (01) ==
LOC: HO.HGI 13:25
PROVIDERS: Visit Provider Internal Medicine Gastroenterology
DX: K50.811 Crohn's disease of both small and large intestine with rectal bleeding (principal); K60.30 Anal fistula, unspecified; D50.9 Iron deficiency anemia, unspecified
CPT/HCPCS: 99499

== ENCOUNTER 2025-02-05 11:30 | Outpatient (RCR) | payer OTHER, SELFPAY ==
[2024-12-07 13:05] VITALS: BP 126/96; PULSE 96; RESP 18; TEMP 36.6; O2SAT 99; BMI 26.3
[2024-12-07 13:24] LABS: MANUAL DIFF FLAG NO
[2024-12-07 13:32] LABS: Basophils Absolute Auto 0.1 X10*3/uL (0.0-0.2); Basophils Percent Auto 0.7 % (0-2); Eosinophils Absolute Auto 0.3 X10*3/uL (0.0-0.4); Eosinophils Percent Auto 3.4 % (0-4); Hematocrit 31.9 % (42.0-52.0); Hemoglobin 9.7 g/dl (14.0-18.0); Imm Gran Abs Auto 0.04 X10*3/uL (0.00-0.03); Imm Gran Pct Auto 0.4 % (0.0-0.4); Lymphocytes Absolute Auto 1.5 X10*3/uL (1.2-4.9); Lymphocytes Percent Auto 15.4 % (20-40); Mean Corpuscular HGB Conc 30.4 g/dl (31.0-36.0); Mean Corpuscular Hemoglobin 21.6 pg (27.0-33.0); Monocytes Absolute Auto 0.9 X10*3/uL (0.1-1.2); Monocytes Percent Auto 9.4 % (2-11); Neutrophils Percent Auto 70.7 % (45-73); Platelet Count 557 X10*3/uL (160-400); Red Blood Count 4.49 X10*6/uL (4.60-5.80); Red Cell Distribution Width 20.7 % (11.0-16.0); White Blood Count 9.9 X10*3/uL (4.8-10.8)
[2024-12-07 13:49] LABS: Alanine Aminotransferase < 6 U/L (0-40); Albumin Level 3.4 g/dL (3.5-5.0); Anion Gap 11 (12-20); Aspartate Amino Transferase 29 U/L (5-37); Bilirubin Total 0.3 mg/dL (0.0-1.0); Blood Urea Nitrogen 11 mg/dL (9-16); C Reactive Protein 13.55 mg/dL (< or = 0.50); Calcium 9.1 mg/dL (8.4-10.2); Carbon Dioxide 28 mmol/L (22-29); Chloride 102 mmol/L (96-108); Creatinine Clr Calc Pharmacy 169.1; Estimated Glomerular Filt Rate > 60; Glucose Random 90 mg/dL (60-115); Sodium 137 mmol/L (135-145); Total Protein 7.9 g/dL (6.5-8.0)
[2024-12-07 13:57] LABS: Alkaline Phosphatase 56 U/L (39-117)
[2024-12-07] MEDS: RISANKIZUMAB RZAA IV (13:57)
[2024-12-07] MEDS: DEXTROSE 5% IV (13:57)
[2024-12-07 14:03] VITALS: BP 127/81; PULSE 81
[2024-12-07 14:30] VITALS: BP 130/73; PULSE 75
[2024-12-07 15:00] VITALS: BP 119/71; PULSE 79
[2025-01-04] VITALS (8 sets, daily range): BP systolic 114–143; BP diastolic 69–93; PULSE 64–107; RESP 16–18; TEMP 36.6
[2025-01-04] MEDS: DEXTROSE 5% IV (10:43)
[2025-01-04] MEDS: RISANKIZUMAB RZAA IV (10:43)
[2025-02-01 10:09] VITALS: BP 130/82; PULSE 88; RESP 18; TEMP 36.6
--- NOTE | 2025-02-01 10:31 | HO.INF ---
NOTIFIED BY PHARMICIST CHLOE THAT PT'S MEDICATION IS NOT AVAILABLE. PT NOTIFIED AMD RESCHEDULED
[2025-02-05 11:46] VITALS: BP 136/86; PULSE 92; RESP 16; TEMP 36.4; O2SAT 97
[2025-02-05 11:48] VITALS: BMI 26.9
[2025-02-05] MEDS: RISANKIZUMAB RZAA IV (12:02)
[2025-02-05] MEDS: DEXTROSE 5% IV (12:02)
[2025-02-05 12:09] VITALS: BP 122/82; PULSE 80
[2025-02-05 12:40] VITALS: BP 114/82; PULSE 80
[2025-02-05 13:10] VITALS: BP 119/79; PULSE 66
[2025-02-05 13:40] VITALS: BP 124/82; PULSE 65
[2025-02-05 14:10] VITALS: BP 115/80; PULSE 84
== END 2025-02-05 14:22 | disposition home or self-care (01) ==
LOC: HO.INF 11:30
PROVIDERS: Visit Provider Internal Medicine Gastroenterology
DX: K50.811 Crohn's disease of both small and large intestine with rectal bleeding (principal)
CPT/HCPCS: 36415; 80053; 85025; 86140; 96365; 96366; J2327

== ENCOUNTER 2025-02-22 12:56 | Outpatient (AMB) | payer OTHER, SELFPAY ==
--- NOTE | 2025-02-22 12:59 | A.OFFVIS_ITS ---
Vital Signs 02/22/25 13:09 Height 5 ft 9 in Weight 179 lb BMI 26.4 BP 124/78 Blood Pressure Location Lt brachial Position Sitting Pulse 79 Pulse Oximetry (%) 97 Oxygen Delivery Method Room Air Intake Visit Reasons: 3 months f/u Crohn's disease Intake Note: Patient follow up for Crohn's disease of both small and large intestine with rectal bleeding and lab results. Patient cc: constipation on and off. Denies any other GI issues. [employer] Required: No Accompanied by: Self / Same As Patient Allergies ampicillin (AMPICILLIN) Allergy (Mild, Verified 02/22/25 12:59) SWELLING, anaphylaxis Medication List - Last Reconciled 02/22/25 by Fuentes Burton MD albuterol sulfate 90 mcg/actuation 1 inh inhalation QID PRN cholecalciferol (vitamin D3) 250 mcg PO 2XW 90 days ferrous sulfate 325 mg PO BID 50 days folic acid 1 mg PO DAILY 90 days methotrexate (PF) (Otrexup (PF)) 15 mg (0.4 mL) subcut QWEEK mupirocin 2% 1 appl topical TID risankizumab-rzaa 180 mg (1.2 mL) subcut .every 8 weeks 8 weeks HPI HPI 3 months f/u Crohn's disease: Details: GI CLINIC VISIT FOR THIS 29-YEAR-OLD MALE FOLLOWED IN GI FOR 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 Patient was on Remicade for 6 yrs with breakthrough symptoms. Patient was started on Humira on 12/12/19 and dose of Humira was increased to 40 mg every week on 06/21/20 with significant? improvement in his symptoms. 01/10/24 Pt started on MTX 15 mg every week and azathioprine was discontinued 04/21/24 Humira increased to 80 mg every week due to sub-therapeutic levels CHRONIC ILLNESSES:?PERIANAL FISTULA, CROHN'S DISEASE OF BOTH SMALL AND LARGE INTESTINE WITH RECTAL BLEEDING, IMMUNOSUPPRESSED STATUS, HIGH BMI, HEP A IMMUNE, HEP B NON- IMMUNE ?TODAY'S VISIT: Patient follow up for Crohn's disease of both small and large intestine with rectal bleeding and lab results. Patient cc: constipation on and off. Denies any other GI issues. Feeling much better and I havent seen any blood in a while RLQ pain has resolved, has a BM 5 times a day with mild constipation with intermittent straining. Wt is stable at 183 lbs and unable to gain weight. Seen by Colorectal surgeon and scheduled for an MRI scan - scheduled 03/30/25. Due for next injection on 03/29/25 PAST VISITS: Complains of RLQ pain for the past month. Can have abd pain after he eats and sometimes even without eating. Having 5-6 non-bloody BMs a day Wt loss of 15 lbs over the past 6 months Switched to a healthier diet Complains of intermittent periumblical pain Tolerating Humira and MTX. Having 4-5 non bloody BMs a day. Intermittent drainage from the fistula without rectal pain Complains of joint pains Denies eye problems Finished prednisone 2 weeks and abdominal pain has resolved. Increased dose of Humira to 80 mg every week on 05/11/24 Having 4-5 BMs a day Notes eye symptoms have improved Increased allergy symptoms - sneezing Continues to have -05/02 RLQ pain - comes and goes Feels uncomfortable - denies change in Abd pain after eating. Has 4-5 BM/day begining of the week. Has 7-8 BM per day on as Humira starts wearing off Takes Humira every Wednesday. Takes MTX 15 mg every Wednesday and advised to change to Wednesday Recurrent eye problems last month - using eye drops and scheduled to see the eye doctor next week ?IBD SUMMARY ? Year of diagnosis: 02/2014 - presented with diarrhea, abd pain, bloody stools and fatigue, weight loss from 230 to 170 lbs. ? Extent of disease: Small intestine and ? Colon. EGD and colonoscopy showed duodenitis, gastritis diffuse inflammation of the ileum and colon ? PREVIOUS ENDOSCOPIES: 10/2022 EGD and colon were performed 10/2019 EGD showed gastritis and duodenitis. Same-day colonoscopy showed: Cobblestoning with chronic appearing serpiginous ulcers in TI with white exudates, ulcerated ICV. A few 4-5 mm pseudopolyps in the right colon and moderate sigmoid diverticulosis. Moderate internal hemorrhoids, perianal skin tags with ulceration in the anal canal consistent with active etienne-anal Crohn's disease. Biopsies were negative for CMV and HSV and showed chronic inflammation. 03/05 EGD AND COLON- diffuse inflammation of the ileum, colon , duodenitis and gastritis? 01/06 Colonoscopy - mild to moderate inflammation? 01/07 COLONOSCOPY SHOWED ulceration the terminal ileum, pseudopolyps in the ascending colon, normal mucosa in the whole colon, internal hemorrhoids. Digital rectal examination was abnormal with skin tags and no fistula. Biopsy showed active ileitis, severe with ulceration of the terminal ileum and active mild focal colitis in the right and left colon. No granulomas or dysplasia was seen. ? Last Colonoscopy: ? October 2018 - a little bit of inflammation and treated with steroids and increased dose of Remicade 10 mg/kg every 4 weeks. ? NEXT COLONOSCOPY DUE: in 2-3 yrs ? PAST SURGERY: NONE ? PAST TREATMENTS: Methotrexate, Steroids, and then Remicade, Budesonide 01/2017 - stopped after 1 month. (PT DOES NOT LIKE TAKING PILLS) ? CURRENT TREATMENT: Humira every week and MTX 15 mg once weekly. ? ASSOCIATED DIAGNOSIS: Perianal fistula, Eye problems ? IMMUNIZATIONS: Gets a flu shot every year. Pneumococcal 23 vaccination and Pneumovax were completed in September 2017. ? LAST PPD/TB TEST: MAR 2024 NEGATIVE LABS IN [facility]: Reviewed 12/13/19 normal CBC with H&H of 12.5 and 37.9 with microcytosis and hypochromia, ? ESR 31, CRP 6.94, vitamin-D 14.4 , T spot was negative ? Stool cold calprotectin was elevated at 1796.5 IMAGING STUDIES: 04/04/[address] SCAN SHOWED: Thickening of the distal small bowel/terminal ileum extending to the cecum with infiltrative change in the right lower quadrant. The appendix is not identified separate structure. Findings consistent with terminal ileitis and cecal colitis. Inflammatory bowel disease is a consideration. Other considerations would include inflammatory bowel disease. Appendicitis cannot entirely excluded. 12/20/19 MR ENTEROGRAPHY SHOWED: ? IMPRESSION: ? Nonobstructive active inflammation involving distal 15 cm ileum. No proximal obstruction, visible cobblestoning, fistula, or fluid collection. ?ENDOSCOPIC STUDIES: 10/29/22 EGD AND COLON SHOWED: Endoscopy Findings: STOMACH: Gastritis DUODENUM: Three 4-5 mm chronic appearing healing ulcers in the descending duodenum - biopsied Colonoscopy Findings: No polyps were detected Active right sided colitis due to Crohn's disease (Cecum, ICV and AC). Patchy erythema with friable appearing mucosa without ulcers in the transverse and left colon. Active etienne-anal Crohn's disease Moderate diverticulosis seen in the sigmoid colon Plan: Repeat Colonoscopy interval based on path results - in 1- 2 years for FU of Crohn's disease 10/27/2019 EGD AND COLONOSCOPY SHOWED:? STOMACH: Mild gastric erythema with edematous folds with aphthoid ulcers in the ? antrum. Biopsies were obtained. Grade 1 flap valve on retroflexed examination of the cardia. ? DUODENUM: Duodenitis with multiple 5-6 mm ulcers in the bulb - biopsied. A ? few 4-5 mm ulcers in the 2nd/3rd part of the duodenum - biopsies were obtained ? Colonoscopy Findings: ? Terminal Ileum Distal 7-8 cms was examined and showed cobblestoning with ? chronic appearing serpiginous ulcers with white exudates - biopsies were ? obtained for histology and viral cultures. ? Ulcerated ICV. A few 4-5 mm pseudopolyps in the right colon. ? Moderate diverticulosis seen in the sigmoid colon ? Moderate internal hemorrhoids, perianal skin tags with ulceration in the anal ? canal consistent with active etienne-anal Crohn's disease. ? Plan: ? I will discuss switching from Remicade to Humira with the patient at his FU visit. ? Patient has an appointment on 11/10/19 in the GI Clinic with Fuentes Burton M.D.- ? Repeat Colonoscopy interval based on path results - in 2- 3 years for surveillance biopsies. ? Biopsies showed: ? A. Small bowel, biopsies: Acute duodenitis; negative for dysplasia/malignancy. ? B. Stomach, bulb, biopsies: Marked active gastritis; negative for Helicobacter; ? negative for granulomas; negative for dysplasia/malignancy. ? C. Stomach, antrum, biopsies: Marked active gastritis; negative for Helicobacter; ? negative for granulomas; negative for dysplasia/malignancy. ? D. Terminal ileum, biopsies: Chronic, severe active ileitis; negative for granulomas; negative for dysplasia/malignancy. ? E. Ileocecal valve, biopsies: Severe active, chronic colitis; negative for granulomas; ? negative for dysplasia/malignancy. F. Colon, right, biopsies: Colonic mucosa within normal limits; no active ? inflammation; negative for granulomas; negative for dysplasia/malignancy. ? G. Colon, left, biopsies: Colonic mucosa within normal limits; no active inflammation; ? negative for granulomas; negative for dysplasia/malignancy. ? 8. Rectum, biopsies: Colonic mucosa within normal limits; no active inflammation; ? negative for granulomas; negative for dysplasia/malignancy ? PAST VISIT: Complains of intermittent LUQ abd pain - comes and goes Can feel like a sharp pain and resolves after 1-2 minutes. Denies association with eating. Can happen randomly while he is watching TV. Can have 5 or more BMs a day Notes blood in the stool when he gets abdominal cramps Denies nocturnal diarrhea Had eye symptoms 3 weeks ago which resolved after he used steroid drops Requesting a refill for Vitamin D Denies abdominal pain or diarrhea. Has 3-4 BMs a days and sometimes upto 5. Feels well with improved energy levels He was having some eye problems and referred to the Eye Doctor He was told Crohn's disease was affecting his eyes (? Uveitis) and prescribed some eye drops Eye is better now. Mon and and increase to 4 and 5 on and Wednesday. Takes injection in the morning and if he forgets then 5 pm in the evening Taking Humira every Wednesday. Diarrhea comes and goes _ nothing crazy Can have 4-5 BMs a day - sometimes with blood. Notes abdominal cramping 1-2 days before next Humira injection Taking Vitamin D intermittently. Has a BM 3 times a day - vary between soft and solid. Notes some blood once in a while. Denies?any symptoms of recurrent perianal fistula. Pt has gained 14 lbs over the past 4 months. I am doing really good Humira is doing its job. No abdominal pain or bloody stools. Eye problem has resolved. ? Pt states that he has been doing really good! no GI sx. ? Notes resolution of abdominal cramps and rectal bleeding. ? Has 4 normal BMs a day. ? Taking Humira every week and is taking azathioprine. ? Feels Humira is helping. ? Wt is stable at 190- 200 lbs. Saw the ophalmologist - felt he had sand in his eyes - prescribed eye drops with resolution of symptoms [facility] Medical History Nonimmune to hepatitis B virus Hepatitis A immune Crohn's disease Surgical History Hx of colonoscopy (10/27/19) Hx of esophagogastroduodenoscopy (10/27/19) History of ankle surgery (~02/2017) Hx of tonsillectomy Social History Household Members: Family Alcohol intake: current Alcohol intake frequency: does not drink Patient Tobacco Use Status: Never used Tobacco Use of substances other than those prescribed or required for medical reasons: Yes Substance Use Type: IV Drugs Advance Directives: No Advance Directives Information Provided: Yes Current occupation: Works at [employer] Review of Systems Const All systems reviewed & are unremarkable except as noted in HPI and below Physical Exam Vital Signs: Last Vital Signs Pulse 79 02/22/25 13:09 BP 124/78 02/22/25 13:09 Pulse Ox 97 02/22/25 13:09 Oxygen Delivery Method Room Air 02/22/25 13:09 BMI result Body Mass Index 26.4 Const General: healthy appearing and no acute distress Nutritional Appearance: obese Orientation/consciousness: patient oriented x3 Limitations: no limitations HEENT Head: Yes normal to inspection Ears: hearing grossly normal bilaterally Mouth: Normal oral and palatal mucosa present Eyes Sclerae: sclerae normal Pupils: Equal, round and reactive pupils present Neck Neck: Yes normal visual inspection Chest Chest palpation & inspection: normal inspection of the chest Resp Effort & Inspection: normal respiratory effort Auscultation: clear to auscultation bilaterally Cardio Palpation: normal PMI Rate: regular rate Rhythm: regular rhythm Heart sounds: S1 normal heart sound present, S2 normal heart sound present and no murmurs GI Palpation (GI): Soft to palpation, Tenderness to palpation present (GI) (Minimal RLQ tenderness) and No hepatosplenomegaly present Auscultation: normal bowel sounds Rectal Exam - Male: Yes deferred Skin General skin exam: no rashes or lesions noted Neuro General: patient oriented x3, gait normal and moves all extremities Cranial nerves: Yes Equal, round and reactive pupils present Psych Appearance: grossly normal Mental Status: mental status grossly normal Assessment & Plan Assessment & Plan (1) Crohn's disease of both small and large intestine with rectal bleeding: Code(s): K50.811 - Crohn's disease of both small and large intestine with rectal bleeding Category: Medical (2) Perianal fistula: Code(s): K60.3 - Anal fistula Category: Medical (3) Iron deficiency anemia: Code(s): D50.9 - Iron deficiency anemia, unspecified Category: Medical (4) Hidradenitis suppurativa: Code(s): L73.2 - Hidradenitis suppurativa Category: Medical Plan 29 YM with perianal fistula, Crohn's disease of both large and small intestine with rectal bleeding, immunosuppressed status, high BMI, hepatitis a immune followed in GI for Crohn's Disease involving small and large intestine.. Pt was being treated with Remicade 10 mg/kg every 4 weeks and noted breakthrough symptoms 3 weeks after Remicade infusion. 11/09 EGD showed gastritis and duodenitis. Same-day colonoscopy showed:? Cobblestoning with chronic appearing serpiginous ulcers in TI with white exudates, ulcerated ICV. A few 4-5 mm pseudopolyps in the right colon and moderate sigmoid diverticulosis. Moderate internal hemorrhoids, perianal skin tags with ulceration in the anal canal consistent with active etienne-anal Crohn's disease. Biopsies were negative for CMV and HSV and showed chronic inflammation. 12/20/19 MR enterography showed nonobstructive active inflammation involving distal 15 cm ileum. No proximal obstruction, visible cobblestoning, fistula, or fluid collection. Patient was started on Humira on 12/12/19 and dose of Humira was increased to 40 mg every week on 06/21/20 with significant? improvement in his symptoms. Patient was advised to continue Humira 40 mg every week and continue azathioprine 50 mg daily. 10/2022 EGD and Colonoscopy were performed and results as noted. Pt started on azathioprine 50 mg daily due to low adalumimab levels. 01/14/23 Pt advised to have labs checked today. If labs are normal, I will increase azathioprine to 100 mg daily. 5/20/24 Pt started on MTX 15 mg every week and azathioprine was discontinued 04/07/24 Pt seen in the ED on 04/04/[address] findings as noted above Pt advised repeat labs and start prednisone taper over 4 weeks 04/21/24 Labs reviewed with the patient. Advised to increase Humira to 80 mg every week Dated prescriptions sent. 05/19/24 Humira increased to 80 mg every week on 05/11/24 Continue MTX 15 mg SQ every week and add folic acid Check labs in 3 weeks 11/09/24 Complains of RLQ pain for the past month. Can have abd pain after he eats and sometimes even without eating. Having 5-6 non-bloody BMs a day Wt loss of 15 lbs over the past 6 months Lab and Dexa scan results reviewed Pt advised to continue MTX 15 mg SQ every week and Skyrizi 180 mg SQ every 8 weeks Keep appt with the colorectal surgeon at [facility] 02/22/25 RLQ pain has resolved, has a BM 5 times a day with mild constipation with intermittent straining. Wt is stable at 183 lbs and unable to gain weight. Seen by Colorectal surgeon and scheduled for an MRI scan - scheduled 03/30/25. Due for next injection on 03/29/25 On 03/23/25 @ 12:17 Fuentes Burton Wrote To Fuentes Burton (2) Please let Bertram know that I spoke to Dr Rich colo-rectal surgeon at [facility] and he would like him to have a colonoscopy before his FU appt with him next month. I have asked the GI schedulers to schedule an appt for the colonoscopy. Follow-up in 3 monthS Orders: Orders Comprehensive Met. Panel 02/22/25 K50.811 - Crohn's disease of both small and large intestine with rectal bleeding T Spot TB 02/22/25 K50.811 - Crohn's disease of both small and large intestine with rectal bleeding C Reactive Protein 02/22/25 K50.811 - Crohn's disease of both small and large intestine with rectal bleeding Complete Blood Count Auto Diff 02/22/25 K50.811 - Crohn's disease of both small and large intestine with rectal bleeding Vitamin D 25-OH Total 02/22/25 K50.811 - Crohn's disease of both small and large intestine with rectal bleeding Referrals Dermatology Referral L73.2 - Hidradenitis suppurativa Medications: Refilled folic acid 1 mg PO DAILY 90 tabs 1RF 90 days K50.811 - Crohn's disease of both small and large intestine with rectal bleeding cholecalciferol (vitamin D3) 250 mcg PO 2XW 26 caps 1RF 90 days E55.9 - Vitamin D deficiency, unspecified methotrexate (PF) (Otrexup (PF)) 15 mg (0.4 mL) subcut QWEEK 4 mL 3RF K50.811 - Crohn's disease of both small and large intestine with rectal bleeding Coding Level of Care Code Est Pt Level 4 (38588) Diagnoses Crohn's disease of both small and large intestine with rectal bleeding K50.811 Perianal fistula K60.3 Iron deficiency anemia D50.9 Hidradenitis suppurativa L73.2 Time Spent (min) 18
--- OUTSIDE RECORDS SUMMARY | 2025-02-22 13:01 | XMS_ITS | Clinical Summary ---
Author Organization [employer] Address [address] [place] [address] Care Team Providers Care Cullet Washer Name Role Phone Corrie Bowden Primary Care Provider [phone] Allergies Active Allergy Reactions Criticality Noted Date [...] small and large intestines Immunosuppression 06/22/2016 Immunizations Immunization Administration Dates Next Due DTaP 05/20/2001, 8,04/03/1997,11/24,1996 [...] 78 04/03/2024 1:17 PM EDT Temperature 36.7 C (98 F) 04/03/2024 1:17 PM EDT Respiratory Rate 16 04/03/2024 1:17 PM EDT Oxygen Saturation 99% 04/03/2024 1:17 PM EDT Inhaled Oxygen Concentration - - Weight 88.5 kg (195 lb) 04/03/2024 1:17 PM EDT Height 178 cm (5' 10.08 ) 04/01/2023 10:50 AM ED T Body Mass Index 27.92 04/01/2023 10:50 AM EDT Plan of Treatment Health Maintenance Due Date Last Done Comments Disability Screening 1996 Alcohol/Substance Use Screening 2008 Family Planning (PISQ) 2011 HPV Vaccines (2 - Male 3-dose series) 05/10/2014 04/12/2014 Hepatitis A Vaccines (2 of 2 - 2-dose series) 10/13/2014 04/12/2014 Zoster Vaccines (1 of 2) 2015 COVID-19 Vaccine (3 - Pfizer risk series) 06/12/2021 05/15/2021, 04/24/2021 Pneumococcal Vaccine: Pediatrics (0 to 5 Years) and At-Risk Patients (6 to 49) Years (3 of 3 - PPSV23, PCV20 or PCV21) 10/06/2022 10/06/2017, 06/25/2016 Depression Screening 04/01/2024 04/01/2023, 04/01/20 23 SDOH Screening 04/01/2024 04/01/2023 Tobacco Screening 04/03/2025 04/03/2024 Influenza Vaccine (Season Ended) 2025 05/15/2021, 10/06/2017, 06/22/2016, Additional history exists DTaP/Tdap/Td Vaccines (8 - Td or Tdap) [...] Completed 04/01/2023 Hepatitis C Screening Completed 04/01/2023 Meningococcal B Vaccine Aged Out No l onger eligible based on patient's age to complete this topic RSV under 20 months Aged Out No [...] PM EDT) Hepatitis C Antibody Nonreactive Nonreactive [facility] Comment:Antibodies to HCV no t detected; does not exclude early acuteHCV infection. 04/01/2023 2:08 PM EDT 04/01/2023 4:09 PM EDT [facility] BLOOD ORDERABLES Final Resul t [facility] [address] [place] [phone] * HIV Ab/Ag ([place] DPH) (04/01/2023 2:08 PM EDT) HIV AB/AG Nonreactive Nonreactive [facility] Comment:HIV-1 p24 Ag and/or HIV-1/HIV-2 Ab not detected.A test result that is nonreactive does not exclude thepossibility of exposure to or infection with HIV-1 and/orHIV-2. Nonreactive results in this assay for individualswith prior exposure to HIV-1 and/or HIV-2 may be due toantigen and antibody levels that are below the limit ofdetection of this assay.[employer] HIV Ag/Ab Combo assay result andsupplemental assay results should be interpreted inconjunction with the patient's clinical presentation,history and other laboratory results. If the results areinconsistent with clinical evidence, additional testing issuggested to confirm the result. 04/01/2023 2:08 PM EDT 04/01/2023 4:09 PM EDT [facility] BLOOD ORDERABLES Final Resul t [facility] [address] [place] [address] [phone] from Last 3 Months or Most Recently Relevant to Health Maintenance Insurance [employer] [id number] [place] [address] Care Teams Cullet Washer Relationship Specialty Start Date End Date Corrie Bowden ANP [address] [place] [phone] PCP - General Family Medicine 03/10/23
[2025-02-22 13:09] VITALS: BP 124/78; PULSE 79; O2SAT 97; BMI 26.4
== END 2025-02-22 13:55 | disposition home or self-care (01) ==
LOC: HO.HGI 12:56
PROVIDERS: Visit Provider Internal Medicine Gastroenterology
DX: K50.811 Crohn's disease of both small and large intestine with rectal bleeding (principal); K60.30 Anal fistula, unspecified; D50.9 Iron deficiency anemia, unspecified; L73.2 Hidradenitis suppurativa
CPT/HCPCS: 99214

== ENCOUNTER → 2025-02-22 12:56 | Outpatient (BNVA) | payer OTHER, SELFPAY | PROVIDERS: Visit Provider Internal Medicine Gastroenterology | DX: K50.811 Crohn's disease of both small and large intestine with rectal bleeding (principal); K60.30 Anal fistula, unspecified; D50.9 Iron deficiency anemia, unspecified; L73.2 Hidradenitis suppurativa | CPT/HCPCS: 99212 ==

== ENCOUNTER 2025-04-20 10:03 | Day surgery (SDC) | payer OTHER, SELFPAY ==
--- OUTSIDE RECORDS SUMMARY | 2025-04-10 15:48 | XMS_ITS | Clinical Summary ---
Author Organization [employer] Address [address] [place] [address] Care Team Providers Care Promotional Marketing Agent Name Role Phone Corire Bowden Primary Care Provider [phone] Allergies Active Allergy Reactions Criticality Noted Date [...] of small and large intestines Immunosuppression 06/22/2016 Encounters Date Type Department Care Team Description 04/04/2025 Telephone [facility] [address] [place] [address] Corrie Bowden ANP chart prep from Last 3 Months Immunizations Immunization Administration Dates Next Due DTaP [...] Care Team (Late st Contact Info) Description 04/12/2025 10:15 AM EDT Office Visit [facility] [address], [place] [phone] Corrie Bowden, ANP [address] [place], [place] [phone] Health Maintenance Due Date Last Done Comments [...] 04/01/2023 Tobacco Screening 04/03/2025 04/03/2024 Influenza Vaccine (#1) 2025 , 10/06/2017, 06/22/2016, Additional history exists DTaP/Tdap/Td Vaccines [...] Routine 04/01/2023 2:08 PM EDT HIV ANTIBODY/ANTIGEN (ROMINA FRIED) Routine 04/01/2023 2:08 PM EDT from Last 3 Months or Most Recently Relevant to Health Maintenance Results * Hepatitis C Antibody Reflex (04/01/2023 2:08 PM EDT) Hepatitis C Antibody Nonreactive Nonreactive [facility] Comment:Antibodies to HCV no t detected; does not exclude early acuteHCV infection. 04/01/2023 2:08 PM EDT 04/01/2023 4:09 PM EDT [facility] BLOOD ORDERABLES Final Resul t [facility] [address] [place] [phone] * HIV Ab/Ag ([place] D[facility]) (04/01/2023 [...] the limit ofdetection of this assay.[employer] HIV Ag/Ab Combo assay result andsupplemental assay results should be interpreted inconjunction with the patient's clinical presentation,history and other laboratory results. If the results areinconsistent with clinical evidence, additional testing issuggested to confirm the result. 04/01/2023 2:08 PM EDT 04/01/2023 4:09 PM EDT [facility] BLOOD ORDERABLES Final Resul t [facility] [address] [place] [address] [phone] from Last 3 Months or Most Recently Relevant to Health Maintenance Insurance [address] [place] [address] [employer]SN [employer] [facility] Care Teams Promotional Marketing Agent Relationship Specialty Start Date End Date Corrie Bowden ANP [address] [place] [phone] PCP - General Family Medicine 03/10/23
[2025-04-18 14:02] VITALS: BMI 26.4
--- NOTE | 2025-04-19 14:01 | HO.ANESPROP2 ---
HPI - Anesthesia Eval Consult details Narrative: 29yo M for Colonoscopy Immunologics and methotrexate for Crohn's PMFSH Active Problems Active Problems: All Active Problems Hidradenitis suppurativa (Acute) Osteopenia (Acute) Iron deficiency anemia (Acute) Perianal fistula (Acute) Crohn's disease of both small and large intestine with rectal bleeding (Acute) Past Medical History Medical History Nonimmune to hepatitis B virus Hepatitis A immune Crohn's disease Surgical History Surgical History Hx of colonoscopy (10/27/19) Hx of esophagogastroduodenoscopy (10/27/19) History of ankle surgery (~02/2017) Hx of tonsillectomy History of Problems with Anesthesia: No Social History Social History Household Members: Family Alcohol intake: current Alcohol intake frequency: does not drink Patient Tobacco Use Status: Never used Tobacco Use of substances other than those prescribed or required for medical reasons: Yes Substance Use Type: IV Drugs Advance Directives: No Advance Directives Information Provided: Yes Current occupation: Works at [employer] Allergies Allergy/AdvReac Type Severity Reaction Status Date / Time ampicillin (AMPICILLIN) Allergy Mild SWELLING, Verified 02/22/25 12:59 anaphylaxis Exam Height,Weight and Vital Signs: Height 5 ft 9 in Weight 81.193 kg Pertinent Lab Results Pertinent Lab Results: Laboratory Tests 12/07/24 13:20 WBC 9.9 Hgb 9.7 L Hct 31.9 L Plt Count 557 H Sodium 137 Potassium 4.0 Chloride 102 Carbon Dioxide 28 BUN 11 Creatinine 0.65 Assessment and Plan Assessment Anesthesia Assessment: Chart Reviewed Final Anesthetic Review History of Problems with Anesthesia: No
[2025-04-20 10:34] VITALS: BP 119/72; PULSE 53; RESP 16; TEMP 36.6; O2SAT 99
[2025-04-20] MEDS: Lactated Ringers 1,000 ML 100 ML IVCONT (10:34)
--- NOTE | 2025-04-20 10:40 | MHC.SHP ---
Pre-Procedural Eval Section A - 24 Hr Update-Section A only Date of Service: 04/20/25 Section B - Complete if H&P > 30 days Chief Complaint: Crohn's disease of both small and large intestine Relevant Family History (Specify if Yes): No Relevant Social History: None Present Medications: see Short Stay Collaborative assessment Medical History: Significant History (Nonimmune to hepatitis B virus Hepatitis A immune Crohn's disease) History of Previous Operations: Relevant previous surgery/procedure and date(s) (Hx of colonoscopy (10/27/19) Hx of esophagogastroduodenoscopy (10/27/19) History of ankle surgery (~02/2017) Hx of tonsillectomy) Allergies: Allergies Allergy/AdvReac Type Severity Reaction Status Date / Time ampicillin (AMPICILLIN) Allergy Mild SWELLING, Verified 02/22/25 12:59 anaphylaxis Review of Systems Sugical H&P ROS: Negative: Constitution, Cardiovascular, Respiratory and Gastrointestinal Exam Surgical H&P Exam: Normal: Heart, Normal: Lungs, Normal: Extremities and Normal: Abdomen Plan Diagnosis/Plan: Unchanged I have reviewed the history and physical and performed a pertinent physical examination on my patient. No changes have occurred unless specified. Time Spent With Patient Time: Total time managing care of this patient today ____ minutes.
--- NOTE | 2025-04-20 11:00 | P.CONAN_ITS ---
[facility] Active Problems Active Problems: All Active Problems (Updated 02/22/25 @ 13:53 by Fuentes Burton MD) Hidradenitis suppurativa (Acute) Osteopenia (Acute) Iron deficiency anemia (Acute) Perianal fistula (Acute) Crohn's disease of both small and large intestine with rectal bleeding (Acute) Past Medical History Medical History Nonimmune to hepatitis B virus Hepatitis A immune Crohn's disease Functional capacity: independent ambulation Family History Family history of problems with anesthesia: No Surgical History Surgical History Hx of colonoscopy (10/27/19) Hx of esophagogastroduodenoscopy (10/27/19) History of ankle surgery (~02/2017) Hx of tonsillectomy History of Problems with Anesthesia: No Social History Social History Household Members: Family Alcohol intake: current Alcohol intake frequency: does not drink Patient Tobacco Use Status: Never used Tobacco Use of substances other than those prescribed or required for medical reasons: Yes Substance Use Type: IV Drugs Advance Directives: No Advance Directives Information Provided: Yes Current occupation: Works at [employer] Allergies Allergy/AdvReac Type Severity Reaction Status Date / Time ampicillin (AMPICILLIN) Allergy Mild SWELLING, Verified 02/22/25 12:59 anaphylaxis Active Medications: Current Medications Lactated Ringer's (Lr) 1,000 mls @ 100 mls/hr IVCONT .Q10H LELE Last Admin: 04/20/25 10:34 Dose: 100 mls/hr Exam Height,Weight and Vital Signs: Height 5 ft 9 in Weight 81.193 kg Last Vital Signs Temp 97.9 F 04/20/25 10:34 Pulse 53 04/20/25 10:34 Resp 16 04/20/25 10:34 BP 119/72 04/20/25 10:34 Pulse Ox 99 04/20/25 10:34 O2 Del Method Room Air 04/20/25 10:34 Airway Mallampati Class: II TM Dist: >3cm Neck ROM: Full Heart: RRR Lungs: CTA Assessment and Plan Assessment Anesthesia Assessment: Anesthesia Plan Discussed and Smoking Cess. Discussed Final Anesthetic Review Family History of Problems with Anesthesia: No History of Problems with Anesthesia: No NPO: Yes ASA Class: II Final Preanesthetic Review: Meds/Allgs Chart Reviewed, Consent Obtained/Reviewed and Anes Risks/Benef Reviewed Patient Risk: Low Procedure Risk: Low Anesthetic Plan Anesthetic Plan: MAC: Disposition: Standard PACU
[2025-04-20 13:11] VITALS: BP 130/83; PULSE 51; RESP 16; TEMP 36.6; O2SAT 97
[2025-04-20 13:15] VITALS: BP 123/78; PULSE 52; RESP 16; O2SAT 100
--- NOTE | 2025-04-20 13:21 | P.OPN-COLO_ITS ---
Colonoscopy Operative Note Operative Note Date of Service: 04/20/25 Narrative: COLONOSCOPY TILL CECUM WITH BIOPSIES, HEMOCLIP PLACEMENT AND CHROMO ENDOSCOPY Pre-op diagnosis: Surveillance for Crohn's disease. Post-op diagnosis:? Ileitis and colitis involving the right colon Endoscopist:? Fuentes Burton MD Anesthesia:?MAC Consent: Indications for the procedure and potential complications of bleeding, perforation, reaction to medications and missed diagnosis were discussed with the patient and informed consent was obtained. Instrument: Olympus PCF H 190 L variable stiffness pediatric colonoscope Monitoring: Vital signs and clinical assessment, intermittent blood pressure monitoring, continuous EKG monitoring, Pulse oximetry and Carbon Dioxide monitoring were done throughout the procedure. Please see anesthesia flowsheet. Colon withdrawl time was 31 minutes. Procedure: The patient was placed in the left lateral decubitis position and pre-procedure medications were administered. After a digital rectal examination of the ano-rectum, the video colonoscope was inserted into the rectum and advanced through the colon to the cecum. The colonoscope was slowly withdrawn in a retrograde panoramic fashion and the colon mucosa was carefully examined including a retroflexed view of the rectum. Findings and interventions are described below. Procedure Difficulty: Colon was long and there was some loop formation. LLQ pressure was applied to intubate the cecum Findings: Terminal Ileum: Unable to intubate the terminal ileum due to edematous and ulcerated mucosa with narrowing. Edematous ICV with ulcerations - multiple biopsies were obtained. Cecum: Appeared deformed with ? polyp versus mass with narrowed lumen leading into the cecum. Ascending Colon: A superficial tear noted at hepatic flexure with bleeding (likely scope trauma) - three hemoclips were placed with cessation of bleeding. Transverse Colon: Normal Descending Colon: Normal Sigmoid Colon: Normal Rectum: Normal Ano-rectum: Moderate internal hemorrhoids Colon preparation: Good after copious irrigation. [place] Bowel Preparation Scale Right colon; 2 Transverse colon: 2 Left colon; 2 (0 = Unprepared colon segment with mucosa not seen due to solid stool that cannot be cleared. 1 = Portion of mucosa of the colon segment seen, but other areas of the colon segment not well seen due to staining, residual stool and/or opaque liquid. 2 = Minor amount of residual staining, small fragments of stool and/or opaque liquid, but mucosa of colon segment seen well. 3 = Entire mucosa of colon segment seen well with no residual staining, small fragments of stool or opaque liquid) Impression and Post Procedure Diagnosis: Colonoscopy Findings: Cecum appeared deformed with edematous ICV with ulcerations - multiple biopsies were obtained. Unable to intubate the terminal ileum due to edematous and ulcerated mucosa with narrowing. A superficial tear noted at hepatic flexure with bleeding (likely scope trauma) - three hemoclips were placed with cessation of bleeding. Moderate hemorrhoids on retroflexed exam. Plan: Pt has a FU appointment on 06/14/[address] Burton Repeat Colonoscopy in 2 years for surveillance for Crohn's disease. Above findings were reviewed with the patient and relevant handouts were given and the discharge area. BIOPSIES SHOWED: A. Cecum, biopsy: Chronic, severely active, colitis. B. Ileocecal valve, biopsy: Ileocolonic mucosa with mild active inflammation and crypt disarray. C. Cecum, mass, biopsy: Inflammatory polyp; multiple additional levels examined. D. Colon, ascending, biopsy: Colonic mucosa within normal limits. E. Colon, transverse, biopsy: Colonic mucosa within normal limits. F. Colon, descending, biopsy: Colonic mucosa with small lymphoid aggregates; otherwise within normal limits. G. Colon, sigmoid, biopsy: Colonic mucosa within normal limits. Comment: No dysplasia is identified
[2025-04-20 13:30] VITALS: BP 128/70; PULSE 52; RESP 16; O2SAT 100
== END 2025-04-20 14:05 | disposition home or self-care (01) ==
PROVIDERS: Visit Provider Internal Medicine Gastroenterology
PROC: 0DJD8ZZ Inspection of Lower Intestinal Tract, Via Natural or Artificial Opening Endoscopic (ICD-10-PCS; CPT 45378; principal; 2025-04-20 11:40)
DX: K50.811 Crohn's disease of both small and large intestine with rectal bleeding (principal); K56.2 Volvulus; K51.40 Inflammatory polyps of colon without complications; K52.89 Other specified noninfective gastroenteritis and colitis; K57.30 Diverticulosis of large intestine without perforation or abscess without bleeding; K64.8 Other hemorrhoids; Z79.899 Other long term (current) drug therapy
CPT/HCPCS: 45380; 88305; J2003; J2704; Q9968

== ENCOUNTER 2025-06-14 10:03 | Outpatient (AMB) | payer OTHER, SELFPAY ==
--- NOTE | 2025-06-14 10:04 | A.OFFVIS_ITS ---
Vital Signs 06/14/25 10:17 Height 5 ft 9 in Weight 184 lb BMI 27.2 BP 111/72 Blood Pressure Location Lt brachial Position Sitting Pulse 64 Intake Visit Reasons: crohns Intake Note: Patient follow up for crohns and EGD/Colonoscopy results, lab order from [facility] was not done by pt. Patient denies any GI issues. Patient have a surgery at [facility] for his Crohns. 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: No Accompanied by: Family/Other Allergies ampicillin (AMPICILLIN) Allergy (Mild, Verified 06/14/25 10:08) SWELLING, anaphylaxis Medication List - Last Reconciled 06/14/25 by Fuentes Burton MD albuterol sulfate 90 mcg/actuation 1 inh inhalation QID PRN cholecalciferol (vitamin D3) 250 mcg PO 2XW 90 days ferrous sulfate 325 mg PO BID 50 days folic acid 1 mg PO DAILY 90 days methotrexate (PF) (Otrexup (PF)) 15 mg (0.4 mL) subcut QWEEK mupirocin 2% 1 appl topical TID risankizumab-rzaa 180 mg (1.2 mL) subcut .every 8 weeks 8 weeks HPI HPI crohns: Details: GI CLINIC VISIT FOR THIS 29-YEAR-OLD MALE FOLLOWED IN GI FOR 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 Patient was on Remicade for 6 yrs with breakthrough symptoms. Patient was started on Humira on 12/12/19 and dose of Humira was increased to 40 mg every week on 06/21/20 with improvement in his symptoms. 01/10/24 Pt started on MTX 15 mg every week and azathioprine was discontinued 04/21/24 Humira increased to 80 mg every week due to sub-therapeutic levels CHRONIC ILLNESSES:?PERIANAL FISTULA, CROHN'S DISEASE OF BOTH SMALL AND LARGE INTESTINE WITH RECTAL BLEEDING, IMMUNOSUPPRESSED STATUS, HIGH BMI, HEP A IMMUNE, HEP B NON- IMMUNE ?TODAY'S VISIT: Patient follow up for crohns and EGD/Colonoscopy results, lab order from [facility] was not done by pt. 05/31/25 Patient had laparoscopically assisted ileocecectomy and drainage of a etienne-sigmoid abscess by Dr. Rich at [facility]. 45 cm of terminal ileum was resected to remove ileocecal fistulae. Pt is accompanied by his Mom and Had surgery on 05/31/25 and was hospitalized for 6 days Stopped Skyrizi x 2 months for the surgery. Resumed Skyrizi injections 3 days ago. Notes intermittent lower abd pain - when he is having a BMs Has 3 soft BMs a day PAST VISITS: Feeling much better and I havent seen any blood in a while RLQ pain has resolved, has a BM 5 times a day with mild constipation with intermittent straining. Wt is stable at 183 lbs and unable to gain weight. Seen by Colorectal surgeon and scheduled for an MRI scan - scheduled 03/30/25. Due for next injection on 03/29/25 Complains of RLQ pain for the past month. Can have abd pain after he eats and sometimes even without eating. Having 5-6 non-bloody BMs a day Wt loss of 15 lbs over the past 6 months Switched to a healthier diet Complains of intermittent periumblical pain Tolerating Humira and MTX. Having 4-5 non bloody BMs a day. Intermittent drainage from the fistula without rectal pain Complains of joint pains Denies eye problems Finished prednisone 2 weeks and abdominal pain has resolved. Increased dose of Humira to 80 mg every week on 05/11/24 Having 4-5 BMs a day Notes eye symptoms have improved Increased allergy symptoms - sneezing Continues to have RLQ pain - comes and goes Feels uncomfortable - denies change in Abd pain after eating. Has 4-5 BM/day begining of the week. Has 7-8 BM per day on as Humira starts wearing off Takes Humira every Wednesday. Takes MTX 15 mg every Wednesday and advised to change to Wednesday Recurrent eye problems last month - using eye drops and scheduled to see the eye doctor next week ?IBD SUMMARY ? Year of diagnosis: 02/2014 - presented with diarrhea, abd pain, bloody stools and fatigue, weight loss from 230 to 170 lbs. ? Extent of disease: Small intestine and ? Colon. EGD and colonoscopy showed duodenitis, gastritis diffuse inflammation of the ileum and colon ? PREVIOUS ENDOSCOPIES: 10/2022 EGD and colon were performed 10/2019 EGD showed gastritis and duodenitis. Same-day colonoscopy showed: Cobblestoning with chronic appearing serpiginous ulcers in TI with white exudates, ulcerated ICV. A few 4-5 mm pseudopolyps in the right colon and moderate sigmoid diverticulosis. Moderate internal hemorrhoids, perianal skin tags with ulceration in the anal canal consistent with active etienne-anal Crohn's disease. Biopsies were negative for CMV and HSV and showed chronic inflammation. 03/05 EGD AND COLON- diffuse inflammation of the ileum, colon , duodenitis and gastritis? 01/06 Colonoscopy - mild to moderate inflammation? 01/07 COLONOSCOPY SHOWED ulceration the terminal ileum, pseudopolyps in the ascending colon, normal mucosa in the whole colon, internal hemorrhoids. Digital rectal examination was abnormal with skin tags and no fistula. Biopsy showed active ileitis, severe with ulceration of the terminal ileum and active mild focal colitis in the right and left colon. No granulomas or dysplasia was seen. ? Last Colonoscopy: ? October 2018 - a little bit of inflammation and treated with steroids and increased dose of Remicade 10 mg/kg every 4 weeks. ? NEXT COLONOSCOPY DUE: in 2-3 yrs ? PAST SURGERY: NONE ? PAST TREATMENTS: Methotrexate, Steroids, and then Remicade, Budesonide 01/2017 - stopped after 1 month. (PT DOES NOT LIKE TAKING PILLS) ? CURRENT TREATMENT: Humira every week and MTX 15 mg once weekly. ? ASSOCIATED DIAGNOSIS: Perianal fistula, Eye problems ? IMMUNIZATIONS: Gets a flu shot every year. Pneumococcal 23 vaccination and Pneumovax were completed in September 2017. ? LAST PPD/TB TEST: MAR 2024 NEGATIVE LABS IN [facility]: Reviewed 12/13/19 normal CBC with H&H of 12.5 and 37.9 with microcytosis and hypochromia, ? ESR 31, CRP 6.94, vitamin-D 14.4 , T spot was negative ? Stool cold calprotectin was elevated at 1796.5 IMAGING STUDIES: 04/04/[address] SCAN SHOWED: Thickening of the distal small bowel/terminal ileum extending to the cecum with infiltrative change in the right lower quadrant. The appendix is not identified separate structure. Findings consistent with terminal ileitis and cecal colitis. Inflammatory bowel disease is a consideration. Other considerations would include inflammatory bowel disease. Appendicitis cannot entirely excluded. 12/20/19 MR ENTEROGRAPHY SHOWED: ? IMPRESSION: ? Nonobstructive active inflammation involving distal 15 cm ileum. No proximal obstruction, visible cobblestoning, fistula, or fluid collection. ?ENDOSCOPIC STUDIES: 10/29/22 EGD AND COLON SHOWED: Endoscopy Findings: STOMACH: Gastritis DUODENUM: Three 4-5 mm chronic appearing healing ulcers in the descending duodenum - biopsied Colonoscopy Findings: No polyps were detected Active right sided colitis due to Crohn's disease (Cecum, ICV and AC). Patchy erythema with friable appearing mucosa without ulcers in the transverse and left colon. Active etienne-anal Crohn's disease Moderate diverticulosis seen in the sigmoid colon Plan: Repeat Colonoscopy interval based on path results - in 1- 2 years for FU of Crohn's disease 10/27/2019 EGD AND COLONOSCOPY SHOWED:? STOMACH: Mild gastric erythema with edematous folds with aphthoid ulcers in the ? antrum. Biopsies were obtained. Grade 1 flap valve on retroflexed examination of the cardia. ? DUODENUM: Duodenitis with multiple 5-6 mm ulcers in the bulb - biopsied. A ? few 4-5 mm ulcers in the 2nd/3rd part of the duodenum - biopsies were obtained ? Colonoscopy Findings: ? Terminal Ileum Distal 7-8 cms was examined and showed cobblestoning with ? chronic appearing serpiginous ulcers with white exudates - biopsies were ? obtained for histology and viral cultures. ? Ulcerated ICV. A few 4-5 mm pseudopolyps in the right colon. ? Moderate diverticulosis seen in the sigmoid colon ? Moderate internal hemorrhoids, perianal skin tags with ulceration in the anal ? canal consistent with active etienne-anal Crohn's disease. ? Plan: ? I will discuss switching from Remicade to Humira with the patient at his FU visit. ? Patient has an appointment on 11/10/19 in the GI Clinic with Fuentes Burton M.D.- ? Repeat Colonoscopy interval based on path results - in 2- 3 years for surveillance biopsies. ? Biopsies showed: ? A. Small bowel, biopsies: Acute duodenitis; negative for dysplasia/malignancy. ? B. Stomach, bulb, biopsies: Marked active gastritis; negative for H elicobacter; ? negative for granulomas; negative for dysplasia/malignancy. ? C. Stomach, antrum, biopsies: Marked active gastritis; negative for Helicobacter; ? negative for granulomas; negative for dysplasia/malignancy. ? D. Terminal ileum, biopsies: Chronic, severe active ileitis; negative for granulomas; negative for dysplasia/malignancy. ? E. Ileocecal valve, biopsies: Severe active, chronic colitis; negative for granulomas; ? negative for dysplasia/malignancy. F. Colon, right, biopsies: Colonic mucosa within normal limits; no active ? inflammation; negative for granulomas; negative for dysplasia/malignancy. ? G. Colon, left, biopsies: Colonic mucosa within normal limits; no active inflammation; ? negative for granulomas; negative for dysplasia/malignancy. ? 8. Rectum, biopsies: Colonic mucosa within normal limits; no active inflammation; ? negative for granulomas; negative for dysplasia/malignancy ? PAST VISIT: Complains of intermittent LUQ abd pain - comes and goes Can feel like a sharp pain and resolves after 1-2 minutes. Denies association with eating. Can happen randomly while he is watching TV. Can have 5 or more BMs a day Notes blood in the stool when he gets abdominal cramps Denies nocturnal diarrhea Had eye symptoms 3 weeks ago which resolved after he used steroid drops Requesting a refill for Vitamin D Denies abdominal pain or diarrhea. Has 3-4 BMs a days and sometimes upto 5. Feels well with improved energy levels He was having some eye problems and referred to the Eye Doctor He was told Crohn's disease was affecting his eyes (? Uveitis) and prescribed some eye drops Eye is better now. Mon and and increase to 4 and 5 on and Wednesday. Takes injection in the morning and if he forgets then 5 pm in the evening Taking Humira every Wednesday. Diarrhea comes and goes _ nothing crazy Can have 4-5 BMs a day - sometimes with blood. Notes abdominal cramping 1-2 days before next Humira injection Taking Vitamin D intermittently. Has a BM 3 times a day - vary between soft and solid. Notes some blood once in a while. Denies?any symptoms of recurrent perianal fistula. Pt has gained 14 lbs over the past 4 months. I am doing really good Mili is doing its job. No abdominal pain or bloody stools. Eye problem has resolved. ? Pt states that he has been doing really good! no GI sx. ? Notes resolution of abdominal cramps and rectal bleeding. ? Has 4 normal BMs a day. ? Taking Humira every week and is taking azathioprine. ? Feels Humira is helping. ? Wt is stable at 190- 200 lbs. Saw the ophalmologist - felt he had sand in his eyes - prescribed eye drops with resolution of symptoms [facility] Medical History Nonimmune to hepatitis B virus Hepatitis A immune Crohn's disease Surgical History (Updated 06/14/25 @ 10:23 by Monae Lazar) History of colon surgery Hx of colonoscopy (10/27/19) Hx of esophagogastroduodenoscopy (10/27/19) History of ankle surgery (~02/2017) Hx of tonsillectomy Social History Household Members: Family Alcohol intake: current Alcohol intake frequency: does not drink Patient Tobacco Use Status: Never used Tobacco Substance Use Type: IV Drugs Current occupation: Works at [employer] Review of Systems Const All systems reviewed & are unremarkable except as noted in HPI and below Physical Exam Vital Signs: Last Vital Signs Pulse 64 06/14/25 10:17 BP 111/72 06/14/25 10:17 BMI result Body Mass Index 27.2 Const General: healthy appearing and no acute distress Nutritional Appearance: obese Orientation/consciousness: patient oriented x3 Limitations: no limitations HEENT Head: Yes normal to inspection Ears: hearing grossly normal bilaterally Mouth: Normal oral and palatal mucosa present Eyes Sclerae: sclerae normal Pupils: Equal, round and reactive pupils present Neck Neck: Yes normal visual inspection Chest Chest palpation & inspection: normal inspection of the chest Resp Effort & Inspection: normal respiratory effort Auscultation: clear to auscultation bilaterally Cardio Palpation: normal PMI Rate: regular rate Rhythm: regular rhythm Heart sounds: S1 normal heart sound present, S2 normal heart sound present and no murmurs GI Palpation (GI): Soft to palpation, nontender and No hepatosplenomegaly present Auscultation: normal bowel sounds Rectal Exam - Male: Yes deferred Skin General skin exam: no rashes or lesions noted Neuro General: patient oriented x3, gait normal and moves all extremities Cranial nerves: Yes Equal, round and reactive pupils present Psych Appearance: grossly normal Mental Status: mental status grossly normal Assessment & Plan Assessment & Plan (1) Crohn's disease of both small and large intestine with rectal bleeding: Code(s): K50.811 - Crohn's disease of both small and large intestine with rectal bleeding Category: Medical (2) Perianal fistula: Code(s): K60.3 - Anal fistula Category: Medical Plan 29 YM with perianal fistula, Crohn's disease of both large and small intestine with rectal bleeding, immunosuppressed status, hepatitis a immune followed in GI for Crohn's Disease involving small and large intestine.. Pt was being treated with Remicade 10 mg/kg every 4 weeks and noted breakthrough symptoms 3 weeks after Remicade infusion. 11/09 EGD showed gastritis and duodenitis. Same-day colonoscopy showed:? Cobblestoning with chronic appearing serpiginous ulcers in TI with white exudates, ulcerated ICV. A few 4-5 mm pseudopolyps in the right colon and moderate sigmoid diverticulosis. Moderate internal hemorrhoids, perianal skin tags with ulceration in the anal canal consistent with active etienne-anal Crohn's disease. Biopsies were negative for CMV and HSV and showed chronic inflammation. 12/20/19 MR enterography showed nonobstructive active inflammation involving distal 15 cm ileum. No proximal obstruction, visible cobblestoning, fistula, or fluid collection. Patient was started on Humira on 12/12/19 and dose of Humira was increased to 40 mg every week on 06/21/20 with significant? improvement in his symptoms. Patient was advised to continue Humira 40 mg every week and continue azathioprine 50 mg daily. 10/2022 EGD and Colonoscopy were performed and results as noted. Pt started on azathioprine 50 mg daily due to low adalumimab levels. 01/10/24 Pt started on MTX 15 mg every week and azathioprine was discontinued 04/07/24 Pt seen in the ED on 04/04/[address] findings as noted above Pt advised repeat labs and start prednisone taper over 4 weeks 04/21/24 Labs reviewed with the patient. Advised to increase Humira to 80 mg every week Dated prescriptions sent. 05/19/24 Humira increased to 80 mg every week on 05/11/24 Continue MTX 15 mg SQ every week and add folic acid Check labs in 3 weeks 11/09/24 Complains of RLQ pain for the past month. Can have abd pain after he eats and sometimes even without eating. Having 5-6 non-bloody BMs a day Wt loss of 15 lbs over the past 6 months Lab and Dexa scan results reviewed Pt advised to continue MTX 15 mg SQ every week and Skyrizi 180 mg SQ every 8 weeks Keep appt with the colorectal surgeon at [facility] 02/22/25 RLQ pain has resolved, has a BM 5 times a day with mild constipation with intermittent straining. Wt is stable at 183 lbs and unable to gain weight. Seen by Colorectal surgeon and scheduled for an MRI scan - scheduled 03/30/25. Due for next injection on 03/29/25 04/20/25 COLONOSCOPY SHOWED: Cecum appeared deformed with edematous ICV with ulcerations - multiple biopsies were obtained. Unable to intubate the terminal ileum due to edematous and ulcerated mucosa with narrowing. A superficial tear noted at hepatic flexure with bleeding (likely scope trauma) - three hemoclips were placed with cessation of bleeding. Moderate hemorrhoids on retroflexed exam. Plan: Repeat Colonoscopy in 2 years for surveillance for Crohn's disease. BIOPSIES SHOWED: A. Cecum, biopsy: Chronic, severely active, colitis. B. Ileocecal valve, biopsy: Ileocolonic mucosa with mild active inflammation and crypt disarray. C. Cecum, mass, biopsy: Inflammatory polyp; multiple additional levels examined. D. Colon, ascending, biopsy: Colonic mucosa within normal limits. E. Colon, transverse, biopsy: Colonic mucosa within normal limits. F. Colon, descending, biopsy: Colonic mucosa with small lymphoid aggregates; otherwise within normal limits. G. Colon, sigmoid, biopsy: Colonic mucosa within normal limits. Comment: No dysplasia is identified 05/31/25 Patient had laparoscopically assisted ileocecectomy and drainage of a etienne-sigmoid abscess by Dr. Rich at [facility]. 45 cm of terminal ileum was resected to remove ileocecal fistulae. Patient is doing well. Stopped Skyrizi x 2 months for the surgery. Resumed Skyrizi injections 3 days ago. Pt advised to continue MTX 15 mg SQ every week and Skyrizi 180 mg SQ every 8 weeks Follow-up in 4 months Medications: Refilled risankizumab-rzaa 180 mg (1.2 mL) subcut .every 8 weeks 1.2 mL 3RF 8 weeks K50.811 - Crohn's disease of both small and large intestine with rectal bleeding Coding Level of Care Code Est Pt Level 4 (27753) Diagnoses Crohn's disease of both small and large intestine with rectal bleeding K50.811 Perianal fistula K60.3 Time Spent (min) 21
[2025-06-14 10:17] VITALS: BP 111/72; PULSE 64; BMI 27.2
--- OUTSIDE RECORDS SUMMARY | 2025-06-14 11:48 | XMS_ITS | Encounter Summary ---
Author Organization [employer] Address [address] [place] [address] Care Team Providers Care Wood Gouger Name Role Phone Corrie Bowden Primary Care Provider [phone] Reason for Visit * Reason Onset Date Comments New Patient Appt 02/24/2023 Encounter Details Date Type Department Care Team ([facility] st Contact Info) Description 02/24/2023 Telephone [facility] MEDICINE [address] [place] [address] Corrie Bowden ANP [address] [place] [address] New Patient Appt Social History Tobacco Use [...] PAR Namrata Huntley called pt to Offer PROPERTY SPECIALIST appt. Pt demographics and insurance information were verified. Pt reports the following medical conditions: Crohn Disease. Pt is currently taking medication:pseudoephedrine (Sudafed) 30 MG tablet and azithromycin (Zithromax) 250 MG tablet . Pt given PROPERTY SPECIALIST appt with PCP TARIK Bowden on 04/01/2023 @ 10:30 am. Pt will be sent appt reminder card and medical release form and agrees to complete and to return to medical records prior to PROPERTY SPECIALIST appt. documented in this encounter Plan of Treatment Upcoming Encounters Date Type Department Care Team (Late st Contact Info) Description 2025 10:30 AM EDT Office Visit [address] [address] Corrie Bowden ANP [address] [place] [id number] 07/03/2025 11:30 AM EST Office Visit [address] [address] Corrie Bowden ANP [address] [place] [id number] documented as of this encounter Visit Diagnoses Not on filedocumented in this encounter Care Teams Wood Gouger Relationship Specialty Start Date End Date Corrie Bowden ANP [address] [place] [id number] PCP - General Family Medicine 03/10/23 documented as of this encounter
--- OUTSIDE RECORDS SUMMARY | 2025-06-14 11:48 | XMS_ITS | Encounter Summary ---
Author Organization [employer] Address [address] [place] [address] Care Team Providers Care Melting Operator Name Role Phone Corrie Bowden Primary Care Provider [phone] Reason for Visit * Reason Onset Date Comments chart prep 06/13/2025 Encounter Details Date Type Department Care Team ([facility] Contact Info) Description 06/13/2025 Telephone [facility] MEDICINE [address] [place] [address] Corrie Bowden ANP [address] [place] [address] chart prep Social History Tobacco Use Types Packs/Day Years Used Date Smoking Tobacco: Never Passive Smoke Exposure: Never Smokeless Tobacco: Never Alcohol Use Standard Drinks/Week Comments Yes 0 (1 standard drink = 0.6 oz pur e alcohol) occasional Depression Answer Date Recorded Patient Health Questionnaire-9 Score 0 04/12/2025 Patient Health Questionnaire-9 Score 0 04/12/2025 Last PHQ-9: Questionnaire Data Not on file 0 04/12/2025 Housing Stability Answer Date Recorded What is your housing situation today? I have marielle adam 04/12/[address] you li ve. Do you have problems with any of the following? None of the above 04/12/2025 Food Insecurity Answer Date Recorded Within the past 12 months, y ou worried that your food would run out before you got money to buy more: Never True 04/12/2025 Within the past 12 months,th e food you bought just didn't last and you didn't have enough money to get more: Never True Transportation Answer Date Recorded In the past 12 months, has l ack of transportation kept you from medical appts, meetings, work or from getting things needed for daily living? No 04/12/2025 Utilities Answer Date Recorded In the past 12 months, has t he electric, gas, oil or water company threatened to shut off services in your home? No 04/12/2025 Depression Answer Date Recorded Patient Health Questionnaire-2 Score 0 04/12/2025 Internet Access Answer Date Recorded Internet Access Q1 Yes 04/12/2025 Internet Access Q2 My internet/Wi-Fi ac cess is not consistent or reliable 04/12/2025 Sex and Gender Information Value Date Recorded Sex Assigned at Male 06/22/2022 10:16 AM EDT Legal Sex Male 10:16 AM EDT Gender Identity Male 06/22/2022 10:16 AM EDT Sexual Orientation Straight 06/22/2022 10 :16 AM EDT documented as of this encounter Miscellaneous Notes * Telephone Encounter - Shu Huntley [place] - 06/13/2025 10:58 AM EDT Chart Prep Labs: not applicable Images: done Referrals: not applicable Vaccines due: Covid, Flu, Hep A, Zoster, and HPV Screenings: not applicable Overdue care gaps: Not applicable documented in this encounter Plan of Treatment Upcoming Encounters Date Type Department Care Team (Late st Contact Info) Description 2025 10:30 AM EDT Office Visit [address] [address] Corrie Bowden ANP [address] [place] [address] 07/03/2025 11:30 AM EST Office Visit [address] [address] Corrie Bowden ANP [address] [place] [address] documented as of this encounter Visit Diagnoses Not on filedocumented in this encounter Additional Health Concerns Assessment Noted Time PHQ-9 Depression Total Score: 0 04/12/20 25 11:30 AM EDT documented as of this encounter Care Teams Melting Operator Relationship Specialty Start Date End Date Corrie Bowden ANP [address] [place] [address] PCP - General Family Medicine 03/10/23 documented as of this encounter
--- OUTSIDE RECORDS SUMMARY | 2025-06-14 11:48 | XMS_ITS | Clinical Summary ---
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 06/04/20 025 Active fluticasone (Flonase) 50 MCG/ACT nasal sprayIndicatio ns:Seasonal allergies 1-2 sprays per nostril as needed for allergies, 1-2 times per day. Shake gently. Before first use, prime pump. After use, clean tip and replace cap. 16 g 2 04/12/20 25 Active Enoxaparin Sodium 40 MG/0.4ML solution prefilled syringe Inject 0.4 mL under the skin 1 (one) time each day at the same time. 06/04/20 25 025 Active folic acid (Folvite) 1 MG tablet Take 1 tablet by mouth Once per day. 05/24/[address] 250 MCG (87656 UT) capsule Take 1 capsule by mouth 2 (two) times a week. 02/23/20 25 Active ciprofloxacin (Cipro) 500 MG tablet Take 1 tablet by mouth 2 times daily. 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 Crohn's disease of small and large intestines Immunosuppression 06/22/2016 Encounters Date Type Department Care Team Description 06/13/[address] [address] Corrie Bowden ANP chart prep 06/06/2025 Patient Outreach [address] [address] Corrie Bowden ANP Pre-visit Planning (HDF scheduled and SDOH screening negative and Tobacco screening negative) 04/12/2025 10:15 AM EDT Office Visit [address] [address] Corrie Bowden ANP Crohn's disease of both small and large intestine with fistula (CMS/HCC) (Primary Dx); Perianal fistula; Seasonal allergies 04/12/2025 Travel 04/11/[address] [address] Corrie Bowden ANP chart prep 04/04/[address] [address] Corrie Bowden ANP chart prep from Last [...] Never Smokeless Tobacco: Never Tobacco Cessation:Counseling Given: No Alcohol Use Standard Drinks/Week Comments Yes 0 [...] Sign Reading Time Taken Comments Blood Pressure 120/80 04/12/2025 10:28 AM EDT Pulse 85 04/12/2025 10:28 AM EDT Temperature 36.1 C (97 F) 04/12/2025 10:28 AM EDT Respiratory Rate 16 04/12/2025 10:28 AM EDT Oxygen Saturation 98% 04/12/2025 10:28 AM EDT Inhaled Oxygen Concentration - - Weight 82.2 kg (181 lb 3.2 oz) 04/12/2025 10:28 AM EDT Height 175.3 cm (5' 9 ) 04/12/2025 10:28 AM EDT Body Mass Index 26.76 04/12/2025 10:28 AM EDT Plan of Treatment Upcoming Encounters Date Type Department Care Team ([facility] st Contact Info) Description 2025 10:30 AM EDT Office Visit [address] [address] Corrie Bowden ANP [address] [place] [phone] 07/03/2025 11:30 AM EST Office Visit [address] [address] Corrie Bowden ANP [address] [place] [phone] Health Maintenance Due Date Last Done Comments Family Planning (PISQ) 2011 HPV Vaccines (2 - Male 3-dose series) 05/10/2014 04/12/2014 Hepatitis A Vaccines (2 of 2 - 2-dose series) 10/13/2014 04/12/2014 Zoster Vaccines (1 of 2) 2015 COVID-19 Vaccine (3 - Pfizer risk series) 06/12/2021 05/15/2021, 04/24/2021 Influenza Vaccine (#1) 2025 , 10/06/2017, 06/22/2016, Additional history exists Alcohol/Substance Use Screening 04/12/2026 04/12/2025 Depression Screening 04/12/2026 04/12/2025, 04/12/20 25 Disability Screening 04/12/2026 04/12/2025 Pneumococcal Vaccine: Pediatrics (0 to 5 Years) and At-Risk Patients (6 to 49) Years (3 of 3 - PPSV23, PCV20 or PCV21) 04/12/2026 10/06/2017, 06/25/2016 Postponed from 10/06/2022 (Patient Refused) SDOH Screening 04/12/2026 04/12/2025 Tobacco Screening 04/12/2026 04/12/2025 DTaP/Tdap/Td Vaccines (8 - Td or Tdap) 02/06/2028 02/05/2018, 10/14/2007, 05/20/2001, Additional history exists RSV Patients and Patients Aged 60 years or older (1 - 1-dose 75+ series) 2071 HIB Vaccines Completed 10/15/1997, 0 03/1997, 1996 IPV Vaccines Completed 02/21/2001, 03/1997, [...] PM EDT) Hepatitis C Antibody Nonreactive Nonreactive [facility] Comment:Antibodies to HCV no t detected; does not exclude early acuteHCV infection. 04/01/2023 2:08 PM EDT 04/01/2023 4:09 PM EDT Corrie Bowden [facility] BLOOD ORDERABLES Final Resul t Performing Organization Address [facility] Co de Phone Number [facility] [address] [place] [address] [phone] HIV Ab/Ag (OR TEJAS) (04/01/2023 2:08 PM EDT) [facility] HIV AB/AG Nonreactive Nonreactive [facility] Comment:HIV-1 p24 Ag and/or HIV-1/HIV-2 Ab not detected.A test result that is nonreactive does not exclude thepossibility of exposure to or infection with HIV-1 and/orHIV-2. Nonreactive results in this assay for individualswith prior exposure to HIV-1 and/or HIV-2 may be due toantigen and antibody levels that are below the limit ofdetection of this assay.The [employer] HIV Ag/Ab Combo assay result andsupplemental assay results should be interpreted inconjunction with the patient's clinical presentation,history and other laboratory results. If the results areinconsistent with clinical evidence, additional testing issuggested to confirm the result. 04/01/2023 2:08 PM EDT 04/01/2023 4:09 PM EDT Corrie Bowden [facility] BLO[facility] ORDERABLES Final Resul t Performing Organization Address [facility]/ZIP Co de Phone Number [facility] [address] [place] [address] [phone] from Last 3 Months or Most Recently Relevant to Health Maintenance Insurance [facility] Care Teams Barrel Tester And Drainer Relationship Specialty Start Date End Date Corrie Bowden ANP [address] [place] [phone] PCP - General Family Medicine 03/10/23
== END 2025-06-14 10:55 | disposition home or self-care (01) ==
LOC: HO.HGI 10:04
PROVIDERS: Visit Provider Internal Medicine Gastroenterology
DX: K50.811 Crohn's disease of both small and large intestine with rectal bleeding (principal); K60.30 Anal fistula, unspecified
CPT/HCPCS: 99499